=== PATIENT | female | born 1935 | race Caucasian/White ===

== ENCOUNTER 2017-09-25 19:04 | Emergency (ER) | payer MEDICARE ==
--- NOTE | 2017-09-25 20:11 | ER Document Report ---
ED Medical Screen (RME) - General Chief Complaint: Productive Cough Stated Complaint: STOMACH PAIN Time Seen by Provider: 09/25/17 19:48 Notes: Patient recently diagnosed with pneumonia and prescribed Zithromax. Family states patient was doing better until about 3 days ago when patient once again began to have stomach pain and vomiting. She also began to cough and have confusion. Daughter states she called primary care physician today who referred patient to the emergency department. TRAVEL OUTSIDE OF THE [place] IN LAST 30 DAYS: No - Related Data Allergies/Adverse Reactions: Penicillins Allergy (Unverified 08/30/11 05:08) Home Medications: Current Home Medications Atenolol [Tenormin] 50 mg PO BID 09/25/17 [History] Atorvastatin Calcium [Lipitor 40 mg Tablet] 40 mg PO QHS 09/25/17 [History] Esomeprazole Mag Trihydrate [Nexium] 40 mg PO DAILY 09/25/17 [History] Fenofibrate 54 mg PO DAILY 09/25/17 [History] Glipizide [Glipizide ER] 5 mg PO DAILY 09/25/17 [History] Levocetirizine Dihydrochloride [Xyzal] 5 mg PO QHS 09/25/17 [History] Levothyroxine Sodium 100 mcg PO DAILY 09/25/17 [History] Nifedipine [Nifedipine ER] 30 mg PO DAILY 09/25/17 [History] Pioglitazone HCl [Actos 15 mg Tablet] 1 tab PO DAILY 09/25/17 [History] Sitagliptin Phosphate [Januvia] 100 mg PO DAILY 09/25/17 [History] Zoster Vaccine Live/Pf [Zostavax Vial] 19,400 unit SQ DAILY 09/25/17 [History] Past Medical History - Past Medical History Cardiac Medical History: Reports: Hx Hypercholesterolemia, Hx Hypertension Neurological Medical History: Denies: Hx Seizures Endocrine Medical History: Reports: Hx Diabetes Mellitus Type 2 Renal/ Medical History: Denies: Hx Peritoneal Dialysis Musculoskeltal Medical History: Reports Hx Arthritis Past Surgical History: Reports: Hx Cholecystectomy, Hx Orthopedic Surgery - left femur, hip surgery left knee, Hx Tubal Ligation - Immunizations Hx Diphtheria, Pertussis, Tetanus Vaccination: Yes History of Influenza Vaccine for 08/2017 - 01/2018 Season: No Physical Exam - Vital signs Vitals: Temp Pulse Resp BP Pulse Ox 97.6 F 71 16 119/61 99 09/25/17 19:30 09/25/17 19:30 09/25/17 19:30 09/25/17 19:30 09/25/17 19:30 Course - Vital Signs Vital signs: Temp Pulse Resp BP Pulse Ox 97.6 F 71 16 119/61 99 09/25/17 19:30 09/25/17 19:30 09/25/17 19:30 09/25/17 19:30 09/25/17 19:30
--- NOTE | 2017-09-25 20:35 | RADIOLOGY REPORT (SQ) ---
EXAM DESCRIPTION: CHEST PA/LAT COMPLETED DATE/TIME: 09/25/2017 8:25 pm REASON FOR STUDY: cough COMPARISON: 08/29/2011 EXAM PARAMETERS: NUMBER OF VIEWS: two views TECHNIQUE: Digital Frontal and Lateral radiographic views of the chest acquired. RADIATION DOSE: NA LIMITATIONS: none FINDINGS: LUNGS AND PLEURA: No opacities, masses or pneumothorax. No pleural effusion. MEDIASTINUM AND HILAR STRUCTURES: No masses or contour abnormalities. HEART AND VASCULAR STRUCTURES: Heart normal size. No evidence for failure. BONES: No acute findings. HARDWARE: None in the chest. OTHER: No other significant finding. IMPRESSION: NO SIGNIFICANT RADIOGRAPHIC FINDING IN THE CHEST. TECHNICAL DOCUMENTATION: JOB ID: [id number] [employer]- All Rights Reserved
[2017-09-25 20:56] LABS: ABSOLUTE BASOPHILS # (AUTO) 0.1 10^3/uL (0.0-0.2); ABSOLUTE EOSINOPHILS # (AUTO) 0.2 10^3/uL (0.0-0.6); ABSOLUTE LYMPHOCYTES (AUTO) 3.3 10^3/uL (0.5-4.7); ABSOLUTE MONOCYTES (AUTO) 0.8 10^3/uL (0.1-1.4); ABSOLUTE NEUT (AUTO) 7.6 10^3/uL (1.7-8.2); BASOPHILS % (AUTO) 0.7 % (0-2); EOSINOPHILS % (AUTO) 1.8 % (0-6); HEMATOCRIT 32.6 % (36.0-47.0); HEMOGLOBIN 10.3 g/dL (12.0-15.5); HGB HCT DIFFERENCE -1.7; LYMPHOCYTES % (AUTO) 27.5 % (13-45); MEAN CORPUSCULAR HEMOGLOBIN 22.4 pg (27.0-33.4); MEAN CORPUSCULAR HGB CONC 31.7 g/dL (32.0-36.0); MEAN CORPUSCULAR VOLUME 71 fl (80-97); MONOCYTES % (AUTO) 6.8 % (3-13); SEGMENTED NEUTROPHILS % (AUTO) 63.2 % (42-78)
--- NOTE | 2017-09-25 20:56 | ER Document Report ---
ED General - General Chief Complaint: Productive Cough Stated Complaint: STOMACH PAIN Time Seen by Provider: 09/25/17 19:48 Notes: Patient is an 82-year-old female presents emergency department complaining of altered mental status, one episode of emesis. Daughter at the bedside who is her primary caregiver states that they were seen here on September 12 and diagnosed with pneumonia discharged home with azithromycin. She completed her course of antibiotics and improved and is been symptom-free except for the past 2 days. Was referred to the emergency department by their primary care provider Dr. Suhail Abbasi for reevaluation. Denies any fevers, chills admits to mild nonproductive cough which is much improved from previous presentation. Denies epigastric discomfort at this time. Patient denies any abdominal pain, urinary frequency or burning TRAVEL OUTSIDE OF THE [place] IN LAST 30 DAYS: No - Related Data Allergies/Adverse Reactions: Penicillins Allergy (Verified 09/25/17 22:13) Home Medications: Current Home Medications Atenolol [Tenormin] 50 mg PO BID 09/25/17 [History] Atorvastatin Calcium [Lipitor 40 mg Tablet] 40 mg PO QHS 09/25/17 [History] Esomeprazole Mag Trihydrate [Nexium] 40 mg PO DAILY 09/25/17 [History] Fenofibrate 54 mg PO DAILY 09/25/17 [History] Glipizide [Glipizide ER] 5 mg PO DAILY 09/25/17 [History] Levocetirizine Dihydrochloride [Xyzal] 5 mg PO QHS 09/25/17 [History] Levothyroxine Sodium 100 mcg PO DAILY 09/25/17 [History] Nifedipine [Nifedipine ER] 30 mg PO DAILY 09/25/17 [History] Pioglitazone HCl [Actos 15 mg Tablet] 1 tab PO DAILY 09/25/17 [History] Sitagliptin Phosphate [Januvia] 100 mg PO DAILY 09/25/17 [History] Zoster Vaccine Live/Pf [Zostavax Vial] 19,400 unit SQ DAILY 09/25/17 [History] Past Medical History - Social History Smoking Status: Former Smoker Family History: Reviewed & Not Pertinent Patient has suicidal ideation: No Patient has homicidal ideation: No - Past Medical History Cardiac Medical History: Reports: Hx Hypercholesterolemia, Hx Hypertension Neurological Medical History: Denies: Hx Seizures Endocrine Medical History: Reports: Hx Diabetes Mellitus Type 2 Renal/ Medical History: Denies: Hx Peritoneal Dialysis Musculoskeltal Medical History: Reports Hx Arthritis Past Surgical History: Reports: Hx Cholecystectomy, Hx Orthopedic Surgery - left femur, hip surgery left knee, Hx Tubal Ligation - Immunizations Hx Diphtheria, Pertussis, Tetanus Vaccination: Yes Hx Pneumococcal Vaccination: 11/13/05 Review of Systems - Review of Systems Constitutional: No symptoms reported Cardiovascular: No symptoms reported Respiratory: No symptoms reported Gastrointestinal: See HPI Genitourinary: Burning Physical Exam - Vital signs Vitals: Temp Pulse Resp BP Pulse Ox 97.6 F 71 16 119/61 99 09/25/17 19:30 09/25/17 19:30 09/25/17 19:30 09/25/17 19:30 09/25/17 19:30 - Notes Notes: PHYSICAL EXAM GENERAL: Alert, interacts well. HEAD: Normocephalic, atraumatic. EYES: Pupils equal, round, and reactive to light. Extraocular movements intact. ENT: Oral mucosa moist, tongue midline. NECK: Full range of motion. Supple. Trachea midline. LUNGS: Clear to auscultation bilaterally, no wheezes, rales, or rhonchi. No respiratory distress. HEART: Regular rate and rhythm. No murmurs, gallops, or rubs. ABDOMEN: Soft, nondistended, nontender. No guarding, rebound, or rigidity.. Bowel sounds present in all 4 quadrants. EXTREMITIES: Moves all 4 extremities spontaneously. No edema, radial and dorsalis pedis pulses 2/4 bilaterally. No cyanosis. NEUROLOGICAL: Alert and oriented to person, time but not to place or events. Normal speech. PSYCH: Normal affect, normal mood. SKIN: Warm, dry, normal turgor. No rashes or lesions noted. Course - Re-evaluation Re-evalutation: 09/26/17 00:15 Patient is an 82-year-old female hemodynamic stable, no acute distress afebrile. CBC of 12 without evidence of left shift. No evidence of anemia. Chest x-ray without evidence of infiltrate. BUN and creatinine are stable markedly improved from previous presentation. Patient has improved after IV saline. Daughter at the bedside states that she is at her baseline and acting like herself now. Evidence of urinary tract infection on urinalysis. Will discharge home on antibiotics and to follow-up with primary care tomorrow. - Vital Signs Vital signs: Temp Pulse Resp BP Pulse Ox 97.5 F 68 18 162/83 H 99 09/26/17 01:06 09/26/17 01:06 09/26/17 01:06 09/26/17 01:06 09/26/17 01:06 - Laboratory Result Diagrams: 09/25/17 20:45 09/25/17 20:45 Laboratory results interpreted by me: 09/25/17 09/25/17 09/25/17 20:45 20:45 23:14 WBC 12.0 H Hgb 10.3 L Hct 32.6 L MCV 71 L MCH 22.4 L MCHC 31.7 L RDW 18.0 H Potassium 3.4 L Creatinine 1.35 H Est GFR ( Amer) 46 L Est GFR (Non-Af Amer) 38 L Glucose 196 H Direct Bilirubin 0.5 H Alkaline Phosphatase 178 H Albumin 3.4 L Urine Protein >=500 H Urine Glucose (UA) 50 H Ur Leukocyte Esterase MODERATE H - Diagnostic Test Radiology reviewed: Image reviewed, Reports reviewed Discharge - Discharge Clinical Impression: Dehydration UTI (urinary tract infection) Qualifiers: Urinary tract infection type: acute cystitis Hematuria presence: with hematuria Qualified Code(s): N30.01 - Acute cystitis with hematuria Condition: Stable Disposition: HOME, SELF-CARE Instructions: Dehydration ([facility]), Intravenous (IV) Fluids ([facility]), Nitrofurantoin ([facility]), Urinary Tract Infection ([facility]) Prescriptions: Nitrofurantoin/Nitrofuran Mac [Macrobid 100 mg Capsule] 1 tab PO BID #14 capsule Referrals: DONATO KIM MD [Primary Care Provider] - Follow up tomorrow
[2017-09-25 21:19] LABS: ALANINE AMINOTRANSFERASE 24 U/L (9-52); ALBUMIN 3.4 g/dL (3.5-5.0); ALKALINE PHOSPHATASE 178 U/L (38-126); ANION GAP 12 (5-19); ASPARTATE AMINO TRANSFERASE 20 U/L (14-36); BILIRUBIN,DIRECT 0.5 mg/dL (0.0-0.4); BILIRUBIN,TOTAL 0.9 mg/dL (0.2-1.3); BLOOD UREA NITROGEN 19 mg/dL (7-20); CALCIUM 8.6 mg/dL (8.4-10.2); CARBON DIOXIDE 26 mmol/L (22-30); CHLORIDE 100 mmol/L (98-107); CREATININE RESULT 1.35 mg/dL (0.52-1.25); GLUCOSE 196 mg/dL (75-110); POTASSIUM 3.4 mmol/L (3.6-5.0); TOTAL PROTEIN 6.3 g/dL (6.3-8.2)
[2017-09-25] MEDS ORDERED: NORMAL SALINE 1000 ML 1,000 ML IV PRN (21:37)
--- NOTE | 2017-09-25 21:49 | RADIOLOGY REPORT (SQ) ---
EXAM DESCRIPTION: ABDOMEN 2 VIEWS COMPLETED DATE/TIME: 09/25/2017 9:40 pm REASON FOR STUDY: abdominal pain and emesis COMPARISON: None. NUMBER OF VIEWS: Two views. TECHNIQUE: Supine and erect/decubitus radiographic images of the abdomen acquired. LIMITATIONS: None. FINDINGS: FREE AIR: None. No abnormal gas collections. LUNG BASES: Clear. BOWEL GAS PATTERN: Nonobstructive pattern. No dilated loops or air fluid levels. CALCIFICATIONS: No suspicious calcifications. SOFT TISSUES: No gross mass or suggestion of organomegaly. HARDWARE: Left hip hardware. BONES: No acute fracture. No worrisome bone lesions. OTHER: No other significant finding. IMPRESSION: NO RADIOGRAPHIC EVIDENCE FOR ACUTE ABDOMINAL DISEASE. TECHNICAL DOCUMENTATION: JOB ID: [id number] [employer]- All Rights Reserved
[2017-09-26 00:01] LABS: APPEARANCE,URINE CLOUDY; BILIRUBIN,URINE NEGATIVE (NEGATIVE); GLUCOSE, URINE 50 mg/dL (NEGATIVE); KETONES,URINE NEGATIVE (NEGATIVE); LEUKOCYTE ESTERASE,URINE MODERATE (NEGATIVE); NITRITE,URINE NEGATIVE (NEGATIVE); PROTEIN,URINE >=500 mg/dL (NEGATIVE); URINE SPECIFIC GRAVITY 1.018; UROBILINOGEN,URINE NEGATIVE mg/dL (<2.0)
[2017-09-26] MEDS ORDERED: NITROFURANTOIN MONOHYD/M-CRYST 100 MG CAPSULE PO ONE (00:10)
[2017-09-26 01:07] VITALS: BP 162/83
== END 2017-09-26 01:07 | disposition home or self-care (01) ==
LOC: ER 19:04
DX: E86.0 Dehydration (principal); N30.01 Acute cystitis with hematuria; R05 Cough; R41.82 Altered mental status, unspecified; E78.00 Pure hypercholesterolemia, unspecified; I10 Essential (primary) hypertension; E11.9 Type 2 diabetes mellitus without complications; Z88.0 Allergy status to penicillin; Z90.49 Acquired absence of other specified parts of digestive tract; Z98.51 Tubal ligation status
CPT/HCPCS: 99284; 96360; 36415; 87086; 83690; 85025; 87088; 80053; 81001; 74020; 71020; J7030; A9270; J8499

== ENCOUNTER 2017-12-13 09:15 | Outpatient (CLI) | payer MEDICARE ==
[~2017-12-13 09:15] MED LIST: ACETAMINOPHEN 325 MG TABLET PO PRN; DIPHENHYDRAMINE HCL 50 MG/ML VIAL IV PRN; IRON DEXTRAN COMPLEX 25 MG in SYRINGE, DISPOSABLE, 1 EACH IV PRN; IRON DEXTRAN COMPLEX 975 MG in NORMAL SALINE 1000 ML 1,000 ML IV PRN; NORMAL SALINE 250 ML IV PRN
[2017-12-13 09:30] VITALS: BP 138/61
== END 2017-12-13 15:05 | disposition home or self-care (01) ==
LOC: II 09:15 → 5TH 09:19 → II 15:05
PROVIDERS: ATTEND Internal Medicine Hematology & Oncology
PROC: 3E033GC Introduction of Other Therapeutic Substance into Peripheral Vein, Percutaneous Approach (ICD-10-PCS; principal; 2017-12-13)
DX: D50.9 Iron deficiency anemia, unspecified (principal)
CPT/HCPCS: 96365; 96366; 96374; 96375; A9270; J1200; J1750; J7030; J3490

== ENCOUNTER 2018-04-27 21:09 | Emergency (ER) | payer MEDICARE ==
--- NOTE | 2018-04-27 22:18 | ER Document Report ---
HPI - HPI Pain Level: 3 Notes: Patient is an 82-year-old female with a history of diabetes who presents to the ED complaining of a skin tear to her right posterior forearm prior to arrival. Patient states that she was holding her swallow when he tried to jump off and scratched the arm causing a skin tear. Patient states that she has very thin skin as it is. Daughter states that they brought her here because she is diabetic and may need antibiotics. Patient states that she does not have any pain aside from some soreness with a skin tear is located. She is not on any blood thinners. She has no other concerns or complaints at this time. Denies any headache, fever, URI, sore throat, chest pain, palpitations, syncope, cough , shortness of breath, wheeze, dyspnea, abdominal pain, nausea/vomiting/diarrhea , numbness/tingling, muscle paralysis/weakness, or rash. - ROS Systems Reviewed and Negative: Yes All other systems reviewed and negative - REPRODUCTIVE LMP: na Reproductive: DENIES: : Past Medical History - Social History Smoking Status: Never Smoker Family History: Reviewed & Not Pertinent - Past Medical History Cardiac Medical History: Reports: Hx Hypercholesterolemia, Hx Hypertension Pulmonary Medical History: Reports: Hx COPD Neurological Medical History: Denies: Hx Seizures Endocrine Medical History: Reports: Hx Diabetes Mellitus Type 2 Renal/ Medical History: Denies: Hx Peritoneal Dialysis Musculoskeltal Medical History: Reports Hx Arthritis Past Surgical History: Reports: Hx Cholecystectomy, Hx Orthopedic Surgery - left femur, hip surgery left knee, Hx Tubal Ligation - Immunizations Hx Diphtheria, Pertussis, Tetanus Vaccination: Yes Hx Pneumococcal Vaccination: 11/13/05 Vertical Provider Document - CONSTITUTIONAL Agree With Documented VS: Yes Notes: PHYSICAL EXAMINATION: GENERAL: Well-appearing, well-nourished and in no acute distress. LUNGS: Breath sounds clear to auscultation bilaterally and equal. No wheezes rales or rhonchi. HEART: Regular rate and rhythm without murmurs, rubs, gallops. Musculoskeletal: Rt UE: FROM to passive/active. Strength 5+/5. N/V intact distal. No bony tenderness. Extremities: No cyanosis, clubbing, or edema b/l. Peripheral pulses 2+. Capillary refill less than 3 seconds. NEUROLOGICAL: Normal speech, normal gait. Normal sensory, motor exams PSYCH: Normal mood, normal affect. SKIN: Rt posterior forearm: There is a V-shaped [id number] skin tear noted without laceration. Superficial tear. No purulence or abscess. - INFECTION CONTROL TRAVEL OUTSIDE OF THE [place] IN LAST 30 DAYS: No Course - Re-evaluation Re-evalutation: 04/27/18 22:15 Patient is an afebrile, well-hydrated, 82-year-old female who presents to the ED with a skin tear to her right posterior forearm. Vitals are acceptable. PE is otherwise unremarkable for any neurovascular compromise, obvious tendon/ ligament rupture, obvious fracture/dislocation, septic joint. No labs or imaging warranted at this time based on H&P. Wound was thoroughly irrigated and cleansed. Steri-Strips were used to appropriately approximate wound edges. Wound dressing was placed. Wound instructions reviewed. Tetanus is reported to be up-to-date. I will send her home with a prescription for Keflex as prophylaxis. Pt states she has had rocephin and believes keflex in the past w/ o difficulty. Conservative measures otherwise for symptoms. Recheck with your PCM in 2-3 days. Return to the ED with any worsening/concerning symptoms otherwise as reviewed discharge. Patient is in agreement. - Vital Signs Vital signs: Temp Pulse Resp BP Pulse Ox 97.6 F 96 17 126/71 H 96 04/27/18 21:37 04/27/18 21:37 04/27/18 21:37 04/27/18 21:37 04/27/18 21:37 Discharge - Discharge Clinical Impression: Skin tear of right upper extremity Condition: Stable Disposition: HOME, SELF-CARE Instructions: Antibiotic Ointment Protection ([facility]), Soap Cleansing ([facility]) Additional Instructions: Keep the skin clean Wash with soap and water Tylenol/ibuprofen if needed Triple antibiotic ointment daily Take medication as directed Monitor for any worsening symptoms Recheck with your PCM in 2-3 days Return to the ED with any worsening symptoms and/or development of fever, headache, chest pain, palpitations, syncope, shortness of breath, trouble breathing, abdominal pain, n/v/d, abscess, purulent discharge, red streaks, worsening swelling, or other worsening symptoms that are concerning to you. Prescriptions: Cephalexin Monohydrate [Keflex 500 mg Capsule] 500 mg PO BID #14 capsule Forms: Elevated Blood Pressure Referrals: DONATO KIM MD [Primary Care Provider] - 04/30/18
[2018-04-27 22:42] VITALS: BP 148/85
== END 2018-04-27 22:42 | disposition home or self-care (01) ==
LOC: ER 21:09
DX: S51.811A Laceration without foreign body of right forearm, initial encounter (principal); W45.8XXA Other foreign body or object entering through skin, initial encounter; E11.9 Type 2 diabetes mellitus without complications; I10 Essential (primary) hypertension; J44.9 Chronic obstructive pulmonary disease, unspecified
CPT/HCPCS: 99282

== ENCOUNTER 2018-11-05 10:16 | Inpatient (IN) | payer MEDICARE ==
[2018-11-05] MEDS ORDERED: NORMAL SALINE 1000 ML 1,000 ML IV ONE ×2 (11:21→15:16)
--- NOTE | 2018-11-05 11:23 | ER Document Report ---
ED Medical Screen (RME) - General Chief Complaint: Rectal Bleeding Stated Complaint: RECTAL BLEEDING Time Seen by Provider: 11/05/18 11:10 TRAVEL OUTSIDE OF THE [place] IN LAST 30 DAYS: No - Related Data Allergies/Adverse Reactions: Penicillins Allergy (Verified 11/05/18 10:17) Past Medical History - Past Medical History Cardiac Medical History: Reports: Hx Hypercholesterolemia, Hx Hypertension Pulmonary Medical History: Reports: Hx COPD Neurological Medical History: Denies: Hx Seizures Endocrine Medical History: Reports: Hx Diabetes Mellitus Type 2 Renal/ Medical History: Denies: Hx Peritoneal Dialysis Musculoskeltal Medical History: Reports Hx Arthritis Past Surgical History: Reports: Hx Cholecystectomy, Hx Orthopedic Surgery - left femur, hip surgery left knee, Hx Tubal Ligation - Immunizations Hx Diphtheria, Pertussis, Tetanus Vaccination: Yes History of Influenza Vaccine for 08/2017 - 01/2018 Season: No Physical Exam - Vital signs Vitals: Temp Pulse Resp BP Pulse Ox 97.7 F 105 H 24 H 118/73 98 11/05/18 10:26 11/05/18 10:26 11/05/18 10:26 11/05/18 10:26 11/05/18 10:26 Course - Re-evaluation Re-evalutation: 11/05/18 11:22 83-year-old female not on any blood thinning medications a presents for profuse rectal bleeding. Soaked blood all the way down to her ankles. States that she has been unable to get the bleeding to stop. Never anything like this in the past. We will initiate broad workup type and screen CMP CT abdomen and pelvis. I will plan for this patient undergo further investigation evaluation by secondary provider, the the appropriate diagnostics, disposition and workup will be deferred to that provider. I have performed a rapid screening examination and they will require further evaluation. - Vital Signs Vital signs: Temp Pulse Resp BP Pulse Ox 97.7 F 105 H 24 H 118/73 98 11/05/18 10:26 11/05/18 10:26 11/05/18 10:26 11/05/18 10:26 11/05/18 10:26 Doctor's Discharge - Discharge Referrals: DONATO KIM MD [Primary Care Provider] - Follow up as needed
[2018-11-05 12:23] LABS: ABSOLUTE BASOPHILS # (AUTO) 0.1 10^3/uL (0.0-0.2); ABSOLUTE EOSINOPHILS # (AUTO) 0.2 10^3/uL (0.0-0.6); ABSOLUTE LYMPHOCYTES (AUTO) 1.8 10^3/uL (0.5-4.7); ABSOLUTE MONOCYTES (AUTO) 0.5 10^3/uL (0.1-1.4); ABSOLUTE NEUT (AUTO) 5.3 10^3/uL (1.7-8.2); BASOPHILS % (AUTO) 0.9 % (0-2); EOSINOPHILS % (AUTO) 2.2 % (0-6); HEMATOCRIT 33.7 % (36.0-47.0); HEMOGLOBIN 11.1 g/dL (12.0-15.5); LYMPHOCYTES % (AUTO) 22.5 % (13-45); MEAN CORPUSCULAR HEMOGLOBIN 27.5 pg (27.0-33.4); MEAN CORPUSCULAR HGB CONC 33.1 g/dL (32.0-36.0); MEAN CORPUSCULAR VOLUME 83 fl (80-97); MONOCYTES % (AUTO) 6.6 % (3-13); PLATELET COUNT 368 10^3/uL (150-450); RED BLOOD COUNT 4.06 10^6/uL (3.72-5.28); RED CELL DISTRIBUTION WIDTH 15.6 % (11.5-14.0); SEGMENTED NEUTROPHILS % (AUTO) 67.8 % (42-78); TOTAL CELLS COUNTED % (AUTO) 100 %; WHITE BLOOD COUNT 7.8 10^3/uL (4.0-10.5)
[2018-11-05 12:38] LABS: INTERNATIONAL RATION (INR) 1.02; PARTIAL THROMBOPLASTIN TIME 26.9 SEC (23.5-35.8); PROTHROMBIN TIME 13.9 SEC (11.4-15.4)
[2018-11-05 12:41] LABS: ALANINE AMINOTRANSFERASE 14 U/L (9-52); ALBUMIN 3.5 g/dL (3.5-5.0); ALKALINE PHOSPHATASE 84 U/L (38-126); ANION GAP 7 (5-19); ASPARTATE AMINO TRANSFERASE 21 U/L (14-36); BILIRUBIN,DIRECT 0.7 mg/dL (0.0-0.4); BILIRUBIN,TOTAL 0.8 mg/dL (0.2-1.3); BLOOD UREA NITROGEN 42 mg/dL (7-20); CALCIUM 8.9 mg/dL (8.4-10.2); CARBON DIOXIDE 22 mmol/L (22-30); CHLORIDE 109 mmol/L (98-107); GLUCOSE 166 mg/dL (75-110); SODIUM 137.6 mmol/L (137-145); TOTAL PROTEIN 6.7 g/dL (6.3-8.2)
--- NOTE | 2018-11-05 12:46 | ER Document Report ---
ED General - General Mode of Arrival: Ambulatory Information source: Patient TRAVEL OUTSIDE OF THE [place] IN LAST 30 DAYS: No <BACILIO TRUONG - Last Filed: 11/05/18 12:56> <MARCELA DAVILA - Last Filed: 11/05/18 15:30> - General Chief Complaint: Rectal Bleeding Stated Complaint: RECTAL BLEEDING Time Seen by Provider: 11/05/18 11:10 Notes: Patient is an 83 year old female with hypertension, hyperlipidemia, COPD, Stage III renal failure, type 2 diabetes, osteoporosis, iron deficiency anemia and a history of hemorrhoids presents to the emergency department complaining of rectal bleeding onset last night. Family at bedside states the patient was covered in blood and there was copious amounts of blood on the mattress, the bedside commode, and on the patient's night gown further stating "it looked like a homicide". Patient states she notices the blood when she coughs and describes it as feeling like blood clots. Family also reports the patient complaining of abdominal pain onset today. Patient's PCP is Dr. Abbasi. Patient's oncologist is Dr. Winters. She states they are unable to pinpoint the etiology of her anemia. Patient is not on any blood thinners. Patient is currently prescribed Januvia, Lipitor and receives B12 shots. (BACILIO TRUONG) - Related Data Allergies/Adverse Reactions: Penicillins Allergy (Verified 11/05/18 10:17) Past Medical History - General Information source: Patient - Social History Smoking Status: Former Smoker Cigarette use (# per day): No Chew tobacco use (# tins/day): No Frequency of alcohol use: None Drug Abuse: None Family History: Reviewed & Not Pertinent Patient has suicidal ideation: No Patient has homicidal ideation: No - Past Medical History Cardiac Medical History: Reports: Hx Hypercholesterolemia, Hx Hypertension Pulmonary Medical History: Reports: Hx COPD Endocrine Medical History: Reports: Hx Diabetes Mellitus Type 2 Musculoskeletal Medical History: Reports Hx Arthritis, Reports Other - Osteoporosis Past Surgical History: Reports: Hx Appendectomy, Hx Cholecystectomy, Hx Orth opedic Surgery - left femur, hip surgery left knee, Hx Tubal Ligation - Immunizations Hx Diphtheria, Pertussis, Tetanus Vaccination: Yes Hx Pneumococcal Vaccination: 11/13/05 <BACILIO TRUONG - Last Filed: 11/05/18 12:56> Review of Systems - Review of Systems Constitutional: No symptoms reported EENT: No symptoms reported Cardiovascular: No symptoms reported Respiratory: No symptoms reported Gastrointestinal: See HPI, Abdominal pain, Rectal bleeding Genitourinary: No symptoms reported Female Genitourinary: No symptoms reported Musculoskeletal: No symptoms reported Skin: No symptoms reported Hematologic/Lymphatic: No symptoms reported Neurological/Psychological: No symptoms reported -: Yes All other systems reviewed and negative <BACILIO TRUONG - Last Filed: 11/05/18 12:56> Physical Exam <BACILIO TRUONG - Last Filed: 11/05/18 12:56> - Vital signs Vitals: Temp Pulse Resp BP Pulse Ox 97.7 F 105 H 24 H 118/73 98 11/05/18 10:26 11/05/18 10:26 11/05/18 10:26 11/05/18 10:26 11/05/18 10:26 - Notes Notes: GENERAL: Alert, interacts well. No acute distress. HEAD: Normocephalic, atraumatic. EYES: Pupils equal, round, and reactive to light. Extraocular movements intact. ENT: Oral mucosa moist, tongue midline. NECK: Full range of motion. Supple. Trachea midline. LUNGS: Clear to auscultation bilaterally, no wheezes, rales, or rhonchi. No respiratory distress. HEART: Regular rate and rhythm. No murmurs, gallops, or rubs. ABDOMEN: Soft, non-tender. Ventral hernia in upper abdomen. Non-distended. Bowel sounds present in all 4 quadrants. EXTREMITIES: Moves all 4 extremities spontaneously. NEUROLOGICAL: Alert and oriented x3. Normal speech. PSYCH: Normal affect, normal mood. SKIN: Warm, dry, normal turgor. No rashes or lesions noted. RECTAL: Maroon colored blood coming from inside the rectum. (DIONNEBACILIO DONALDSON) Course - Laboratory Result Diagrams: 11/05/18 11:58 11/05/18 11:58 <BACILIO TRUONG - Last Filed: 11/05/18 12:56> - Laboratory Result Diagrams: 11/05/18 11:58 11/05/18 11:58 - Diagnostic Test Radiology reviewed: Image reviewed, Reports reviewed - CT scan of abdomen pelvis shows diffuse diverticular disease withoou inflamatory changes. There is a midline epigastric ventral hernia with greater omentum in the hernia, transverse colon approximates the hernia but does not enter it. - Consults Dr. Begum Time consulted: 15:05 Consulted provider: will see as inpatient - Will be available for consultation and colonoscopy if necessary. Dr. Gruber Time consulted: 15:10 Consulted provider: will come to ER <MARCELA DAVILA - Last Filed: 11/05/18 15:30> - Vital Signs Vital signs: Temp Pulse Resp BP Pulse Ox 97.8 F 105 H 19 179/73 H 99 11/05/18 14:37 11/05/18 10:26 11/05/18 15:01 11/05/18 15:01 11/05/18 15:01 - Laboratory Laboratory results interpreted by me: 11/05/18 11/05/18 11:58 11:58 Hgb 11.1 L Hct 33.7 L RDW 15.6 H Chloride 109 H BUN 42 H Creatinine 1.93 H Est GFR ( Amer) 30 L Est GFR (Non-Af Amer) 25 L Glucose 166 H Direct Bilirubin 0.7 H Discharge <BACILIO TRUONG - Last Filed: 11/05/18 12:56> - Discharge Admitting Provider: Hospitalist Unit Admitted: Telemetry <MARCELA DAVILA - Last Filed: 11/05/18 15:30> - Discharge Clinical Impression: Lower GI bleed, Diverticulosis large intestine w/o perforation or abscess w/bleeding Condition: Stable Disposition: ADMITTED INPATIENT Referrals: DONATO KIM MD [Primary Care Provider] - Follow up as needed Scribe Attestation: 11/05/18 13:19 I personally performed the services described in the documentation, reviewed and edited the documentation which was dictated to the scribe in my presence, and it accurately records my words and actions. (MARCELA DAVILA) Scribe Documentation - Scribe Written by Nain:: Nain Gabriel, 11/05/2018 12:54 acting as scribe for :: Carlos <BACILIO TRUONG - Last Filed: 11/05/18 12:56>
--- NOTE | 2018-11-05 13:31 | RADIOLOGY REPORT (SQ) ---
EXAM DESCRIPTION: CT ABD/PELVIS NO ORAL OR IV COMPLETED DATE/TIME: 11/05/2018 1:13 pm REASON FOR STUDY: concern for perforated diverticula COMPARISON: None. TECHNIQUE: CT scan of the abdomen and pelvis performed without intravenous or oral contrast. Images reviewed with lung, soft tissue, and bone windows. Reconstructed coronal and sagittal MPR images revi ewed. All images stored on PACS. All CT scanners at this facility use dose modulation, iterative reconstruction, and/or weight based d osing when appropriate to reduce radiation dose to as low as reasonably achievable (ALARA). [facility]: Dose Right [facility]: CareDose [facility]: Dose Right [facility]: Teradose 4D [facility]: Smart [employer] RADIATION DOSE: CT Rad equipment meets quality standard of care and radiation dose reduction techniq ues were employed. CTDIvol: 8.7 mGy. DLP: 496 mGy-cm.mGy. LIMITATIONS: None. FINDINGS: LOWER CHEST: Bibasilar scarring. Calcified granuloma, right middle lobe. Visual lymph no de left major fissure. Marked coronary artery disease. No pericardial effusion. NON-CONTRASTED LIVER, SPLEEN, ADRENALS: Evaluation limited by lack of IV contrast. No identified sign ificant masses. The liver appears diminutive. No intrahepatic biliary dilatation. Mild, symmetric nodularity of the adrenal glands. PANCREAS: Diffusely atrophic. No masses. No peripancreatic inflammatory changes. GALLBLADDER: Surgically absent. RIGHT KIDNEY AND URETER: No suspicious masses. Assessment limited by lack of IV contrast. No signif icant calcifications. No hydronephrosis or hydroureter. LEFT KIDNEY AND URETER: No suspicious masses. Assessment limited by lack of IV contrast. No signifi cant calcifications. No hydronephrosis or hydroureter. AORTA AND RETROPERITONEUM: No aneurysm. No retroperitoneal masses or adenopathy. BOWEL AND PERITONEAL CAVITY: Diffuse diverticular disease. Many of the sigmoid diverticula demonstra te very thin olmos. No focal inflammatory changes to suggest perforation/extraluminal gas. The morris sverse colon it approximates the midline ventral hernia without prolapsing through the defect. APPENDIX: Surgically absent. PELVIS, BLADDER, AND ABDOMINAL WALL:Fat containing supraumbilical/ epigastric midline hernia containi ng greater omentum. The defect measures on the order of 2.2 x 2.4 cm BONES: Degenerative changes of the hips and spine. Partially imaged ORIF of the left femoral neck. No acute findings. OTHER: No other significant finding. IMPRESSION: Diffuse diverticular disease without focal inflammatory changes or definitively extralum inal gas. Midline epigastric hernia containing greater omentum. The transverse colon approximates t his defect without prolapsing through. COMMENT: Quality ID # [id number]: Final reports with documentation of one or more dose reduction techniques (e.g., Automated exposure control, adjustment of the mA and/or kV according to patient size, use of iterative reconstruction technique) TECHNICAL DOCUMENTATION: JOB ID: [id number] [employer]- All Rights Reserved Reading location - IP/workstation name: [email or web address]
[2018-11-05] MEDS ORDERED: GLUCAGON,HUMAN RECOMB 1 MG INJ IM PRN (16:09)
[2018-11-05] MEDS ORDERED: INSULIN LISPRO 100 UNIT/ML 3 ML VIAL SUBCUT PRN (16:09)
[2018-11-05] MEDS ORDERED: DEXTROSE 50%-WATER 25 GM/50 ML DISP.SYRIN IV PRN ×4 (16:09)
[2018-11-05] MEDS ORDERED: DEXTROSE 40% GEL 15 GM TUBE PO PRN ×2 (16:09)
[2018-11-05] MEDS ORDERED: GLUCAGON,HUMAN RECOMB 1 MG INJ SUBCUT PRN (16:09)
[2018-11-05] MEDS ORDERED: HYDRALAZINE HCL INJ/PF 20 MG/1 ML SDV IV PRN (16:10)
--- NOTE | 2018-11-05 16:14 | PDOC CONSULTATION ---
Consultation Consult Date: 11/05/18 Consult reason:: Gastrointestinal Bleeding History of Present Illness Admission Date/PCP: 11/05/18 15:28 DONATO KIM MD History of Present Illness: SUN REMY is a 83 year old female Past Medical History Cardiac Medical History: Reports: Hyperlipidema, Hypertension Pulmonary Medical History: Reports: Chronic Obstructive Pulmonary Disease (COPD) Neurological Medical History: Denies: Seizures Endocrine Medical History: Reports: Diabetes Mellitus Type 2 Musculoskeltal Medical History: Reports: Arthritis, Other - Osteoporosis Past Surgical History Past Surgical History: Reports: Appendectomy, Cholecystectomy, Orthopedic Surgery - left femur, hip surgery left knee, Tubal Ligation Social History Smoking Status: Former Smoker Family History Family History: Reviewed & Not Pertinent Parental Family History Reviewed: No Children Family History Reviewed: Unknown Sibling(s) Family History Reviewed.: Unknown Medication/Allergy Home Medications: Atenolol [Tenormin] 50 mg PO BID 09/25/17 Atorvastatin Calcium [Lipitor 40 mg Tablet] 40 mg PO QHS 09/25/17 Esomeprazole Mag Trihydrate [Nexium] 40 mg PO DAILY 09/25/17 Fenofibrate 54 mg PO DAILY 09/25/17 Glipizide [Glipizide ER] 5 mg PO DAILY 09/25/17 Levocetirizine Dihydrochloride [Xyzal] 5 mg PO QHS 09/25/17 Levothyroxine Sodium 100 mcg PO DAILY 09/25/17 Nifedipine [Nifedipine ER] 30 mg PO DAILY 09/25/17 Pioglitazone HCl [Actos 15 mg Tablet] 1 tab PO DAILY 09/25/17 Sitagliptin Phosphate [Januvia] 100 mg PO DAILY 09/25/17 Zoster Vaccine Live/Pf [Zostavax Vial] 19,400 unit SQ DAILY 09/25/17 Nitrofurantoin/Nitrofuran Mac [Macrobid 100 mg Capsule] 1 tab PO BID #14 capsule 09/26/17 Cephalexin Monohydrate [Keflex 500 mg Capsule] 500 mg PO BID #14 capsule 04/27/18 Allergies/Adverse Reactions: Penicillins Allergy (Verified 11/05/18 10:17) Review of Systems Constitutional: PRESENT: as per HPI Eyes: PRESENT: as per HPI Respiratory: PRESENT: as per HPI Gastrointestinal: PRESENT: hematochezia Genitourinary: PRESENT: as per HPI Physical Exam Vital Signs: Temp Pulse Resp BP Pulse Ox 97.8 F 105 H 19 179/73 H 99 11/05/18 14:37 11/05/18 10:26 11/05/18 15:01 11/05/18 15:01 11/05/18 15:01 Intake & Output 11/04/18 11/05/18 11/06/18 06:59 06:59 06:59 Intake Total 1000 Balance 1000 Weight 72.6 kg General appearance: PRESENT: no acute distress, cooperative Head exam: PRESENT: normocephalic Eye exam: PRESENT: PERRLA Mouth exam: PRESENT: moist GI/Abdominal exam: PRESENT: other - The abdomen is soft obese nontender, there is a large epigastric ventral hernia at approximately 6 cm in diameter there is a old cholecystectomy scar in the right upper quadrant appendectomy scar in the right lower quadrant. Results Laboratory Results: 11/05/18 11:58 11/05/18 11:58 11/05/18 11/05/18 11/05/18 11:58 11:58 11:58 WBC 7.8 RBC 4.06 Hgb 11.1 L Hct 33.7 L MCV 83 MCH 27.5 MCHC 33.1 RDW 15.6 H Plt Count 368 Seg Neutrophils % 67.8 Lymphocytes % 22.5 Monocytes % 6.6 Eosinophils % 2.2 Basophils % 0.9 Absolute Neutrophils 5.3 Absolute Lymphocytes 1.8 Absolute Monocytes 0.5 Absolute Eosinophils 0.2 Absolute Basophils 0.1 Sodium 137.6 Potassium 5.0 Chloride 109 H Carbon Dioxide 22 Anion Gap 7 BUN 42 H Creatinine 1.93 H Est GFR ( Amer) 30 L Est GFR (Non-Af Amer) 25 L Glucose 166 H Calcium 8.9 Total Bilirubin 0.8 AST 21 ALT 14 Alkaline Phosphatase 84 Total Protein 6.7 Albumin 3.5 Lipase 108.0 Blood Type O POSITIVE Antibody Screen NEGATIVE Impressions: Abdomen/Pelvis CT 11/05/18 11:22 IMPRESSION: Diffuse diverticular disease without focal inflammatory changes or definitively extraluminal gas. Midline epigastric hernia containing greater omentum. The transverse colon approximates this defect without prolapsing through. Assessment & Plan - Time Time Spent: 30 to 50 Minutes - Plan Summary Plan Summary: This is a 83-year-old female who presented with 1 day onset of rectal bleeding daughters were present with the patient stated that she woke this morning with a large amount of blood and clots per rectum and therefore she is brought to the emergency room for evaluation she is undergone a CT scan here which that docum ents diffuse diverticulosis as well as the epigastric hernia and there is no other intra-abdominal cyst findings on CT scan repeat hemoglobin in the emergency room showed it to be about 11.1 which has which has not shown a significant change from previous CBCs that have been done on this patient. Current plans patient is to be admitted to the medicine service she will undergo a bleeding scan now. We will then admit the patient for a bowel prep. And plans on colonoscopy in the morning should she continue rebleeding it is hoped that we could identify a left source versus right source on the bleeding scan notes can be obtained today we will plan on colonoscopy prior to any surgery to see if we could document the source of the bleed whether it is in the left colon of the right colon if she continues to bleed and there is unknown and undocumented location she will require subtotal colectomy she will undergo bowel prep this afternoon for possible colonoscopy in the morning and surgery will follow
--- NOTE | 2018-11-05 16:23 | PDOC H&P ---
History of Present Illness Admission Date/PCP: 11/05/18 15:28 DONATO KIM MD Patient complains of: bloody stools History of Present Illness: SUN REMY is a 83 year old female with a PMH of HTN, CKD 3, NIDDM type 2, COPD not on home O2, history of DEMIAN and B12 deficiency and hypothyroidism who was brought in due to bloody stools. Family on bedside. Patient is not in distress. She has been doing well at home but had bloody stools last night, mostly maroon colored mixed with stool. There was also some dark red blood clots noted on the toilet bowl. She had another similar episode this morning. She denies abdominal pain, nausea or vomiting. She denies chest pain, dizziness or SOB. She appears comfortable and is making jokes. Family says she had an EGd and colonoscopy 2 yrs ago which were both normal. Upon encounter, patient is on bedpan having a another BM noted with significant maroon colored stools. Surgeon also on bedside and has recommended a bleeding scan. Plan for colonoscopy tomorrow. Past Medical History Cardiac Medical History: Reports: Hyperlipidema, Hypertension Pulmonary Medical History: Reports: Chronic Obstructive Pulmonary Disease (COPD) Neurological Medical History: Denies: Seizures Endocrine Medical History: Reports: Diabetes Mellitus Type 2 Musculoskeltal Medical History: Reports: Arthritis, Other - Osteoporosis Past Surgical History Past Surgical History: Reports: Appendectomy, Cholecystectomy, Orthopedic Surgery - left femur, hip surgery left knee, Tubal Ligation Social History Smoking Status: Former Smoker Family History Family History: Reviewed & Not Pertinent Parental Family History Reviewed: Yes - no premature CAD Children Family History Reviewed: No Sibling(s) Family History Reviewed.: No Medication/Allergy Home Medications: Atenolol [Tenormin] 50 mg PO BID 09/25/17 Atorvastatin Calcium [Lipitor 40 mg Tablet] 40 mg PO QHS 09/25/17 Esomeprazole Mag Trihydrate [Nexium] 40 mg PO DAILY 09/25/17 Fenofibrate 54 mg PO DAILY 09/25/17 Glipizide [Glipizide ER] 5 mg PO DAILY 09/25/17 Levocetirizine Dihydrochloride [Xyzal] 5 mg PO QHS 09/25/17 Levothyroxine Sodium 100 mcg PO DAILY 09/25/17 Nifedipine [Nifedipine ER] 30 mg PO DAILY 09/25/17 Pioglitazone HCl [Actos 15 mg Tablet] 1 tab PO DAILY 09/25/17 Sitagliptin Phosphate [Januvia] 100 mg PO DAILY 09/25/17 Zoster Vaccine Live/Pf [Zostavax Vial] 19,400 unit SQ DAILY 09/25/17 Nitrofurantoin/Nitrofuran Mac [Macrobid 100 mg Capsule] 1 tab PO BID #14 capsule 09/26/17 Cephalexin Monohydrate [Keflex 500 mg Capsule] 500 mg PO BID #14 capsule 04/27/18 Allergies/Adverse Reactions: Penicillins Allergy (Verified 11/05/18 10:17) Review of Systems All systems: reviewed and no additional remarkable complaints except as stated - as mentioned in HPI Physical Exam Vital Signs: Temp Pulse Resp BP Pulse Ox 97.8 F 105 H 19 179/73 H 99 11/05/18 14:37 11/05/18 10:26 11/05/18 15:01 11/05/18 15:01 11/05/18 15:01 Intake & Output 11/04/18 11/05/18 11/06/18 06:59 06:59 06:59 Intake Total 1000 Balance 1000 Weight 160 lb 0.889 oz General appearance: PRESENT: no acute distress, well-developed, well-nourished Head exam: PRESENT: atraumatic, normocephalic Eye exam: PRESENT: conjunctiva pink, EOMI, PERRLA. ABSENT: scleral icterus Ear exam: PRESENT: normal external ear exam Mouth exam: PRESENT: moist, tongue midline Neck exam: ABSENT: carotid bruit, JVD, lymphadenopathy, thyromegaly Respiratory exam: PRESENT: clear to auscultation mychal. ABSENT: rales, rhonchi, wheezes Cardiovascular exam: PRESENT: RRR. ABSENT: diastolic murmur, rubs, systolic murmur GI/Abdominal exam: PRESENT: normal bowel sounds, soft, other - noteof ventral hernia, note of cholecystectomy scar. ABSENT: distended, guarding, mass, organolmegaly, rebound, tenderness Rectal exam: PRESENT: deferred Neurological exam: PRESENT: alert, awake, oriented to person, oriented to place, oriented to time, oriented to situation, CN II-XII grossly intact. ABSENT: motor sensory deficit Results Laboratory Results: 11/05/18 11:58 11/05/18 11:58 11/05/18 11/05/18 11/05/18 11:58 11:58 11:58 WBC 7.8 RBC 4.06 Hgb 11.1 L Hct 33.7 L MCV 83 MCH 27.5 MCHC 33.1 RDW 15.6 H Plt Count 368 Seg Neutrophils % 67.8 Lymphocytes % 22.5 Monocytes % 6.6 Eosinophils % 2.2 Basophils % 0.9 Absolute Neutrophils 5.3 Absolute Lymphocytes 1.8 Absolute Monocytes 0.5 Absolute Eosinophils 0.2 Absolute Basophils 0.1 Sodium 137.6 Potassium 5.0 Chloride 109 H Carbon Dioxide 22 Anion Gap 7 BUN 42 H Creatinine 1.93 H Est GFR ( Amer) 30 L Est GFR (Non-Af Amer) 25 L Glucose 166 H Calcium 8.9 Total Bilirubin 0.8 AST 21 ALT 14 Alkaline Phosphatase 84 Total Protein 6.7 Albumin 3.5 Lipase 108.0 Blood Type O POSITIVE Antibody Screen NEGATIVE Impressions: Abdomen/Pelvis CT 11/05/18 11:22 IMPRESSION: Diffuse diverticular disease without focal inflammatory changes or definitively extraluminal gas. Midline epigastric hernia containing greater omentum. The transverse colon approximates this defect without prolapsing through. Assessment & Plan - Diagnosis (1) Lower GI bleed Is this a current diagnosis for this admission?: Yes Plan: Likely diverticular in origin. CT does show multiple diverticolosis. Surgeon on bedside as well. Discussed plan for colonoscopy tomorrow with family and bleeding scan. Hb 11.1. Last Hb in 2017 on record was 10. Will continue to monitor H&H q6h. Transfuse as necessary. IV fluids. (2) Acute kidney injury Is this a current diagnosis for this admission?: Yes Plan: PARUL on top of CKD. Likely prerenal. She has been given a liter of bolus in the ER. Continue IV fluids. Recheck BMP tomorrow. (3) HTN (hypertension) Is this a current diagnosis for this admission?: Yes Plan: Blood pressure running in the 170-180 systolic. Currnetly NPO. IV hydralazine prn. (4) DM type 2 (diabetes mellitus, type 2) Is this a current diagnosis for this admission?: Yes Plan: On Januvia at home. Sliding scale for now. Accuchecks q6h. - Time Time Spent: 30 to 50 Minutes
[2018-11-05] MEDS: NORMAL SALINE 1000 ML 1,000 ML IV PRN (16:48)
[2018-11-05] MEDS ORDERED: PEG 3350/NA SULF,BICARB,CL/KCL 4000 ML PO ONE (17:30)
[2018-11-05] MEDS ORDERED: MAGNESIUM CITRATE 296 ML BOTTLE PO ONE ×2 (17:55→21:00)
--- NOTE | 2018-11-05 19:43 | RADIOLOGY REPORT (SQ) ---
EXAM DESCRIPTION: NM GI BLEED SCAN COMPLETED DATE/TIME: 11/05/2018 7:35 pm REASON FOR STUDY: BLOODY STOOLS COMPARISON: CT abdomen 11/05/2018 RADIONUCLIDE AND DOSE: 23.6 millicuries Technetium-labeled red blood cells. The route of agent administration: Intravenous. TECHNIQUE: Serial arterial-phase images acquired for 80 seconds immediately following injection of r adionuclide. Additional 60 images acquired at 60 seconds per image. LIMITATIONS: None. FINDINGS: Flow images without focal areas of abnormal radionuclide location. Serial images show no abnormal accumulation of radionuclide. IMPRESSION: NORMAL RADIONUCLIDE GASTROINTESTINAL BLEEDING STUDY. TECHNICAL DOCUMENTATION: JOB ID: [id number] [employer]- All Rights Reserved Reading location - IP/workstation name: [email or web address]
[2018-11-05 20:47] LABS: HEMOGLOBIN 9.2 g/dL (12.0-15.5); MEAN CORPUSCULAR HEMOGLOBIN 27.2 pg (27.0-33.4); MEAN CORPUSCULAR HGB CONC 32.9 g/dL (32.0-36.0); MEAN CORPUSCULAR VOLUME 83 fl (80-97); PLATELET COUNT 306 10^3/uL (150-450); RED BLOOD COUNT 3.39 10^6/uL (3.72-5.28); RED CELL DISTRIBUTION WIDTH 15.4 % (11.5-14.0); WHITE BLOOD COUNT 9.8 10^3/uL (4.0-10.5)
[2018-11-05] MEDS ORDERED: ONDANSETRON HCL INJ/PF 4 MG/2 ML SDV IV PRN (23:42)
[2018-11-06 02:55] LABS: ANION GAP 6 (5-19); BLOOD UREA NITROGEN 35 mg/dL (7-20); CALCIUM 8.4 mg/dL (8.4-10.2); CARBON DIOXIDE 19 mmol/L (22-30); CHLORIDE 115 mmol/L (98-107); GLUCOSE 127 mg/dL (75-110); HEMATOCRIT 26.4 % (36.0-47.0); HEMOGLOBIN 8.9 g/dL (12.0-15.5); MEAN CORPUSCULAR HEMOGLOBIN 27.7 pg (27.0-33.4); MEAN CORPUSCULAR HGB CONC 33.6 g/dL (32.0-36.0); MEAN CORPUSCULAR VOLUME 82 fl (80-97); PLATELET COUNT 264 10^3/uL (150-450); RED CELL DISTRIBUTION WIDTH 15.2 % (11.5-14.0); SODIUM 140.3 mmol/L (137-145); WHITE BLOOD COUNT 7.4 10^3/uL (4.0-10.5)
[2018-11-06] MEDS: NORMAL SALINE 1000 ML 1,000 ML IV PRN (03:01)
--- NOTE | 2018-11-06 08:02 | PDOC PROGRESS REPORT ---
Subjective Progress Note for:: 11/06/18 Reason For Visit: GI BLEED Physical Exam Vital Signs: Temp Pulse Resp BP Pulse Ox 97.5 F 86 18 153/89 H 97 11/06/18 07:28 11/06/18 07:28 11/06/18 07:28 11/06/18 07:28 11/06/18 07:28 Intake & Output 11/05/18 11/06/18 11/07/18 06:59 06:59 06:59 Intake Total 3000 Output Total 200 Balance 2800 Weight 72.6 kg GI/Abdominal exam: PRESENT: soft Results Laboratory Results: 11/06/18 02:30 11/06/18 02:30 11/05/18 11/05/18 11/05/18 11:58 11:58 11:58 WBC 7.8 RBC 4.06 Hgb 11.1 L Hct 33.7 L MCV 83 MCH 27.5 MCHC 33.1 RDW 15.6 H Plt Count 368 Seg Neutrophils % 67.8 Lymphocytes % 22.5 Monocytes % 6.6 Eosinophils % 2.2 Basophils % 0.9 Absolute Neutrophils 5.3 Absolute Lymphocytes 1.8 Absolute Monocytes 0.5 Absolute Eosinophils 0.2 Absolute Basophils 0.1 Sodium 137.6 Potassium 5.0 Chloride 109 H Carbon Dioxide 22 Anion Gap 7 BUN 42 H Creatinine 1.93 H Est GFR ( Amer) 30 L Est GFR (Non-Af Amer) 25 L Glucose 166 H Calcium 8.9 Total Bilirubin 0.8 AST 21 ALT 14 Alkaline Phosphatase 84 Total Protein 6.7 Albumin 3.5 Lipase 108.0 Blood Type O POSITIVE Antibody Screen NEGATIVE 11/05/18 11/06/18 11/06/18 20:35 02:30 02:30 WBC 9.8 7.4 RBC 3.39 L 3.20 L Hgb 9.2 L 8.9 L Hct 28.0 L 26.4 L MCV 83 82 MCH 27.2 27.7 MCHC 32.9 33.6 RDW 15.4 H 15.2 H Plt Count 306 264 Seg Neutrophils % Lymphocytes % Monocytes % Eosinophils % Basophils % Absolute Neutrophils Absolute Lymphocytes Absolute Monocytes Absolute Eosinophils Absolute Basophils Sodium 140.3 Potassium 4.0 D Chloride 115 H Carbon Dioxide 19 L Anion Gap 6 BUN 35 H Creatinine 1.50 H Est GFR ( Amer) 40 L Est GFR (Non-Af Amer) 33 L Glucose 127 H Calcium 8.4 Total Bilirubin AST ALT Alkaline Phosphatase Total Protein Albumin Lipase Blood Type Antibody Screen Impressions: Abdomen/Pelvis CT 11/05/18 11:22 IMPRESSION: Diffuse diverticular disease without focal inflammatory changes or definitively extraluminal gas. Midline epigastric hernia containing greater omentum. The transverse colon approximates this defect without prolapsing through. GI Bleed Scan Nuclear Medicine 11/05/18 16:03 IMPRESSION: NORMAL RADIONUCLIDE GASTROINTESTINAL BLEEDING STUDY. Assessment & Plan - Diagnosis (2) Lower GI bleed Is this a current diagnosis for this admission?: Yes - Plan Summary Plan Summary: pts hemoglobin has remained stable overnight hemoglobin this morning is 8.9 9.2 last pm reports only small bm's overnight with dark blood plan today is for a colonoscopy discussed risks and benifits with patient, including perforation, sepsis and mi, and possible related to procedure will plan to proceed.
[2018-11-06 08:36] LABS: HEMATOCRIT 29.6 % (36.0-47.0); HEMOGLOBIN 9.8 g/dL (12.0-15.5); MEAN CORPUSCULAR HEMOGLOBIN 27.5 pg (27.0-33.4); MEAN CORPUSCULAR HGB CONC 33.1 g/dL (32.0-36.0); MEAN CORPUSCULAR VOLUME 83 fl (80-97); PLATELET COUNT 321 10^3/uL (150-450); RED BLOOD COUNT 3.57 10^6/uL (3.72-5.28); RED CELL DISTRIBUTION WIDTH 15.6 % (11.5-14.0); WHITE BLOOD COUNT 6.2 10^3/uL (4.0-10.5)
--- NOTE | 2018-11-06 09:19 | PDOC PROGRESS REPORT ---
Subjective Progress Note for:: 11/06/18 Subjective:: 11/06/2018 83-year-old female with history of hypertension, CKD 3, non-insulin diabetes type 2. COPD, history of iron deficiency anemia B12 deficiency and hypothyroidism came to the emergency room with bloody stools. No acute events in the last 24 hours. Hemoglobin came up to 9.8. The surgeon saw the patient today and plan for colonoscopy around 10 AM today. Patient is alert and awake communicating very well. She has 1 small bowel movement with blood stained stool. CT scan was done which was negative. Reason For Visit: GI BLEED Physical Exam Vital Signs: Temp Pulse Resp BP Pulse Ox 97.5 F 86 18 153/89 H 97 11/06/18 07:28 11/06/18 07:28 11/06/18 07:28 11/06/18 07:28 11/06/18 07:28 Intake & Output 11/05/18 11/06/18 11/07/18 06:59 06:59 06:59 Intake Total 3000 Output Total 200 Balance 2800 Weight 72.6 kg General appearance: PRESENT: no acute distress Head exam: PRESENT: atraumatic Eye exam: PRESENT: PERRLA Mouth exam: PRESENT: moist Neck exam: ABSENT: carotid bruit, JVD, lymphadenopathy, thyromegaly Respiratory exam: PRESENT: clear to auscultation mychal. ABSENT: rales, rhonchi, wheezes Cardiovascular exam: PRESENT: RRR. ABSENT: diastolic murmur, rubs, systolic murmur GI/Abdominal exam: PRESENT: normal bowel sounds, soft. ABSENT: distended, guarding, mass, organolmegaly, rebound, tenderness Neurological exam: PRESENT: alert, awake, oriented to person, oriented to place, oriented to time, oriented to situation, CN II-XII grossly intact. ABSENT: motor sensory deficit Psychiatric exam: PRESENT: appropriate affect, normal mood. ABSENT: homicidal ideation, suicidal ideation Results Laboratory Results: 11/06/18 08:21 11/06/18 02:30 11/05/18 11/05/18 11/05/18 11:58 11:58 11:58 WBC 7.8 RBC 4.06 Hgb 11.1 L Hct 33.7 L MCV 83 MCH 27.5 MCHC 33.1 RDW 15.6 H Plt Count 368 Seg Neutrophils % 67.8 Lymphocytes % 22.5 Monocytes % 6.6 Eosinophils % 2.2 Basophils % 0.9 Absolute Neutrophils 5.3 Absolute Lymphocytes 1.8 Absolute Monocytes 0.5 Absolute Eosinophils 0.2 Absolute Basophils 0.1 Sodium 137.6 Potassium 5.0 Chloride 109 H Carbon Dioxide 22 Anion Gap 7 BUN 42 H Creatinine 1.93 H Est GFR ( Amer) 30 L Est GFR (Non-Af Amer) 25 L Glucose 166 H Calcium 8.9 Total Bilirubin 0.8 AST 21 ALT 14 Alkaline Phosphatase 84 Total Protein 6.7 Albumin 3.5 Lipase 108.0 Blood Type O POSITIVE Antibody Screen NEGATIVE 11/05/18 11/06/18 11/06/18 20:35 02:30 02:30 WBC 9.8 7.4 RBC 3.39 L 3.20 L Hgb 9.2 L 8.9 L Hct 28.0 L 26.4 L MCV 83 82 MCH 27.2 27.7 MCHC 32.9 33.6 RDW 15.4 H 15.2 H Plt Count 306 264 Seg Neutrophils % Lymphocytes % Monocytes % Eosinophils % Basophils % Absolute Neutrophils Absolute Lymphocytes Absolute Monocytes Absolute Eosinophils Absolute Basophils Sodium 140.3 Potassium 4.0 D Chloride 115 H Carbon Dioxide 19 L Anion Gap 6 BUN 35 H Creatinine 1.50 H Est GFR ( Amer) 40 L Est GFR (Non-Af Amer) 33 L Glucose 127 H Calcium 8.4 Total Bilirubin AST ALT Alkaline Phosphatase Total Protein Albumin Lipase Blood Type Antibody Screen 11/06/18 08:21 WBC 6.2 RBC 3.57 L Hgb 9.8 L Hct 29.6 L MCV 83 MCH 27.5 MCHC 33.1 RDW 15.6 H Plt Count 321 Seg Neutrophils % Lymphocytes % Monocytes % Eosinophils % Basophils % Absolute Neutrophils Absolute Lymphocytes Absolute Monocytes Absolute Eosinophils Absolute Basophils Sodium Potassium Chloride Carbon Dioxide Anion Gap BUN Creatinine Est GFR ( Amer) Est GFR (Non-Af Amer) Glucose Calcium Total Bilirubin AST ALT Alkaline Phosphatase Total Protein Albumin Lipase Blood Type Antibody Screen Impressions: Abdomen/Pelvis CT 11/05/18 11:22 IMPRESSION: Diffuse diverticular disease without focal inflammatory changes or definitively extraluminal gas. Midline epigastric hernia containing greater omentum. The transverse colon approximates this defect without prolapsing through. GI Bleed Scan Nuclear Medicine 11/05/18 16:03 IMPRESSION: NORMAL RADIONUCLIDE GASTROINTESTINAL BLEEDING STUDY. Assessment & Plan - Diagnosis (1) Lower GI bleed Is this a current diagnosis for this admission?: Yes Plan: 11/06/2018-lower GI bleed most likely secondary to diverticular origin. Bleeding scan was negative. CT scan shows multiple diverticulosis. Surgeon is planning to do colonoscopy around 10 AM today. Latest hemoglobin is 9.8. (2) Acute kidney injury Is this a current diagnosis for this admission?: Yes Plan: 11/06/2018 patient's baseline creatinine is around 1.3. On admission it was 1.93 improved to 1.5 with IV fluids. (3) HTN (hypertension) Is this a current diagnosis for this admission?: Yes Plan: 11/06/2018-patient is currently n.p.o. blood pressure is 153/89. She is on hydralazine IV as needed. She is also getting IV fluids. (4) DM type 2 (diabetes mellitus, type 2) Is this a current diagnosis for this admission?: Yes Plan: 11/06/2018-patient's latest blood sugar is 117. Patient is n.p.o. She was on Januvia at home. Presently she is on insulin sliding scale. Accu-Cheks every 6 hours. - Time Time Spent with patient: Less than 15 minutes Smoking Cessation Education: 3 to 10 minutes Medications reviewed and adjusted accordingly: Yes Anticipated discharge: Home
[2018-11-06] MEDS ORDERED: NORMAL SALINE 1000 ML 1,000 ML IV PRN (09:20)
[2018-11-06] MEDS ORDERED: ONDANSETRON HCL INJ/PF 4 MG/2 ML SDV ONE (09:22)
[2018-11-06] MEDS ORDERED: DIPHENHYDRAMINE HCL 50 MG/ML VIAL ONE (09:22)
[2018-11-06] MEDS ORDERED: FENTANYL CITRATE INJ/PF 100 MCG/2 ML AMPUL ONE (09:23)
[2018-11-06] MEDS ORDERED: GLUCAGON,HUMAN RECOMB 1 MG INJ ONE (09:23)
[2018-11-06] MEDS ORDERED: FLUMAZENIL INJ 0.5 MG/5 ML VIAL ONE (09:23)
[2018-11-06] MEDS ORDERED: NALOXONE HCL INJ/PF 0.4 MG/1 ML SDV ONE (09:23)
[2018-11-06] MEDS ORDERED: EPINEPHRINE INJ 1 MG/10 ML DISP.SYRIN ONE (09:23)
[2018-11-06] MEDS ORDERED: MIDAZOLAM 2 MG/2 ML INJ ONE (09:23)
--- NOTE | 2018-11-06 11:35 | Operative Report ---
Operative Report DATE OF SURGERY: 11/06/18 - Colonoscopy PREOPERATIVE DIAGNOSIS: lower gi bleeding POSTOPERATIVE DIAGNOSIS: Diverticulosis OPERATION: Diagnostic colonoscopy SURGEON: ARVIND HI ANESTHESIA: Moderate Sedation TISSUE REMOVED OR ALTERED: none COMPLICATIONS: none ESTIMATED BLOOD LOSS: minimal INTRAOPERATIVE FINDINGS: Procedure. Patient was brought to the endoscopy suite and placed on the transport gurney in the left lateral decubitus position. She was given 2 mg of IV Versed for sedation. The Olympus colonoscope was passed easily into the rectum and up to approximately 55-60 cm to reach her splenic flexure. The bowel preparation was good. There was no evidence of any ongoing bleeding however there were multiple reticulitis with evidence of old blood and clot within the lumen of these diverticuli. Reach the point backs approximately 40-50 cm were above that appeared to be no evidence of any bleeding but I could not really negotiate the turn between the splenic flexure and the transverse colon however above the about 40 cm there was no further evidence of any previous bleeding. This most the scope was then removed slowly and the exam insert 360 degrees circumferentially around the splenic flexure and descending left colon and and sigmoid and rectum other than the diverticular versus there was no evidence of any other masses to explain the bleed. This completes the procedure.
[2018-11-06] MEDS: NIFEDIPINE 30 MG TAB.ER.24 PO SCH (12:16)
--- NOTE | 2018-11-06 15:39 | EKG REPORT ---
SEVERITY:- NORMAL ECG - SINUS RHYTHM : Confirmed by: Amaya Gilbert 06-Nov-2018 15:37:26
[2018-11-06] MEDS ORDERED: FENOFIBRATE NANOCRYSTALLIZED 48 MG TABLET PO SCH (22:00)
[2018-11-06] MEDS ORDERED: CETIRIZINE 5 MG TABLET PO SCH (22:00)
[2018-11-06] MEDS ORDERED: (PENDING PHARMACY ID) (Fenofibrate [Fenofibrate] 54 MG) PO SCH (22:00)
[2018-11-07 04:42] LABS: ABSOLUTE BASOPHILS # (AUTO) 0.1 10^3/uL (0.0-0.2); ABSOLUTE EOSINOPHILS # (AUTO) 0.3 10^3/uL (0.0-0.6); ABSOLUTE LYMPHOCYTES (AUTO) 1.9 10^3/uL (0.5-4.7); ABSOLUTE MONOCYTES (AUTO) 0.5 10^3/uL (0.1-1.4); ABSOLUTE NEUT (AUTO) 2.9 10^3/uL (1.7-8.2); BASOPHILS % (AUTO) 0.9 % (0-2); HEMATOCRIT 24.4 % (36.0-47.0); HEMOGLOBIN 8.2 g/dL (12.0-15.5); LYMPHOCYTES % (AUTO) 33.7 % (13-45); MEAN CORPUSCULAR HEMOGLOBIN 27.9 pg (27.0-33.4); MEAN CORPUSCULAR HGB CONC 33.8 g/dL (32.0-36.0); MEAN CORPUSCULAR VOLUME 83 fl (80-97); MONOCYTES % (AUTO) 9.4 % (3-13); PLATELET COUNT 270 10^3/uL (150-450); RED BLOOD COUNT 2.95 10^6/uL (3.72-5.28); RED CELL DISTRIBUTION WIDTH 15.7 % (11.5-14.0); TOTAL CELLS COUNTED % (AUTO) 100 %; WHITE BLOOD COUNT 5.6 10^3/uL (4.0-10.5)
[2018-11-07 05:04] LABS: POTASSIUM 4.2 mmol/L (3.6-5.0)
[2018-11-07 05:10] LABS: SODIUM 140.6 mmol/L (137-145)
[2018-11-07] MEDS ORDERED: LEVOTHYROXINE SODIUM 0.1 MG TABLET PO SCH (06:00)
[2018-11-07] MEDS ORDERED: NORMAL SALINE 250 ML IV PRN ×2 (08:22)
--- NOTE | 2018-11-07 08:37 | PDOC PROGRESS REPORT ---
Subjective Progress Note for:: 11/07/18 Subjective:: 11/06/2018 83-year-old female with history of hypertension, CKD 3, non-insulin diabetes type 2. COPD, history of iron deficiency anemia B12 deficiency and hypothyroidism came to the emergency room with bloody stools. No acute events in the last 24 hours. Hemoglobin came up to 9.8. The surgeon saw the patient today and plan for colonoscopy around 10 AM today. Patient is alert and awake communicating very well. She has 1 small bowel movement with blood stained stool. CT scan was done which was negative. 11/07/2018 no acute events in the last 24 hours patient had a colonoscopy yesterday and there is no evidence of active bleeding as per the report. Carly ent does have a diverticula. The bleeding may be secondary to diverticular disease. pt Having the regular movement bowel movements without any blood in the stool. Denies any complaints today. She states she is feeling well. Reason For Visit: GI BLEED Physical Exam Vital Signs: Temp Pulse Resp BP Pulse Ox 97.7 F 73 17 152/70 H 97 11/07/18 07:46 11/07/18 07:46 11/07/18 07:46 11/07/18 07:46 11/07/18 07:46 Intake & Output 11/06/18 11/07/18 11/08/18 06:59 06:59 06:59 Intake Total 3000 1842 Output Total 200 250 Balance 2800 1592 Weight 72.6 kg 70.1 kg General appearance: PRESENT: no acute distress Head exam: PRESENT: atraumatic Eye exam: PRESENT: PERRLA Mouth exam: PRESENT: moist Neck exam: ABSENT: carotid bruit, JVD, lymphadenopathy, thyromegaly Respiratory exam: PRESENT: clear to auscultation mychal. ABSENT: rales, rhonchi, wheezes Cardiovascular exam: PRESENT: RRR. ABSENT: diastolic murmur, rubs, systolic murmur GI/Abdominal exam: PRESENT: normal bowel sounds, soft. ABSENT: distended, guarding, mass, organolmegaly, rebound, tenderness Neurological exam: PRESENT: alert, awake, oriented to person, oriented to place, oriented to time, oriented to situation, CN II-XII grossly intact. ABSENT: motor sensory deficit Skin exam: PRESENT: dry, intact, warm. ABSENT: cyanosis, rash Results Laboratory Results: 11/07/18 04:16 11/07/18 04:16 11/06/18 11/07/18 11/07/18 08:21 04:16 04:16 WBC 6.2 5.6 RBC 3.57 L 2.95 L Hgb 9.8 L 8.2 L Hct 29.6 L 24.4 L MCV 83 83 MCH 27.5 27.9 MCHC 33.1 33.8 RDW 15.6 H 15.7 H Plt Count 321 270 Seg Neutrophils % 51.0 Lymphocytes % 33.7 Monocytes % 9.4 Eosinophils % 5.0 Basophils % 0.9 Absolute Neutrophils 2.9 Absolute Lymphocytes 1.9 Absolute Monocytes 0.5 Absolute Eosinophils 0.3 Absolute Basophils 0.1 Sodium 140.6 Potassium 4.2 Chloride 113 H Carbon Dioxide 22 Anion Gap 6 Impressions: Abdomen/Pelvis CT 11/05/18 11:22 IMPRESSION: Diffuse diverticular disease without focal inflammatory changes or definitively extraluminal gas. Midline epigastric hernia containing greater omentum. The transverse colon approximates this defect without prolapsing through. GI Bleed Scan Nuclear Medicine 11/05/18 16:03 IMPRESSION: NORMAL RADIONUCLIDE GASTROINTESTINAL BLEEDING STUDY. Assessment & Plan - Diagnosis (1) Lower GI bleed Is this a current diagnosis for this admission?: Yes Plan: 11/06/2018-lower GI bleed most likely secondary to diverticular origin. Bleeding scan was negative. CT scan shows multiple diverticulosis. Surgeon is planning to do colonoscopy around 10 AM today. Latest hemoglobin is 9.8. 11/07/2018-patient's latest hemoglobin is 8.2. It dropped from 9.8 yesterday. There is a significant drop of 1.6 hemoglobin. Patient denies any blood in the stool. asymptomatic. I am going to order for a stat CBC, if the hemoglobin is still low we will go ahead and transfuse 1 unit of PRBC I discussed the plan with the patient she gave the consent for blood transfusion. (2) Acute kidney injury Is this a current diagnosis for this admission?: Yes Plan: 11/06/2018 patient's baseline creatinine is around 1.3. On admission it was 1.93 improved to 1.5 with IV fluids. 11/07/2018-patient's baseline creatinine is around 1.3 improved to 1.5 yesterday. We waiting for the labs for today. PARUL is resolving. And is to continue with current management. (3) HTN (hypertension) Is this a current diagnosis for this admission?: Yes Plan: 11/06/2018-patient is currently n.p.o. blood pressure is 153/89. She is on hydralazine IV as needed. She is also getting IV fluids. 11/07/2018-patient's blood pressure today is 132/62. Pulse rate of 70. We started back on her home medication nifedipine 30 mg p.o. daily. Plan is to continue the current management.. (4) DM type 2 (diabetes mellitus, type 2) Is this a current diagnosis for this admission?: Yes Plan: 11/06/2018-patient's latest blood sugar is 117. Patient is n.p.o. She was on Januvia at home. Presently she is on insulin sliding scale. Accu-Cheks every 6 hours. 11/06/2018 latest blood sugar is 159 patient is on insulin sliding scale. She is on Januvia at home. I am going to check her hemoglobin A1c today. We will continue the present management. - Time Time Spent with patient: 15-24 minutes Medications reviewed and adjusted accordingly: Yes Anticipated discharge: Home
[2018-11-07 09:15] LABS: ABSOLUTE BASOPHILS # (AUTO) 0.1 10^3/uL (0.0-0.2); ABSOLUTE EOSINOPHILS # (AUTO) 0.3 10^3/uL (0.0-0.6); ABSOLUTE LYMPHOCYTES (AUTO) 1.8 10^3/uL (0.5-4.7); ABSOLUTE MONOCYTES (AUTO) 0.5 10^3/uL (0.1-1.4); ABSOLUTE NEUT (AUTO) 2.9 10^3/uL (1.7-8.2); BASOPHILS % (AUTO) 1.4 % (0-2); EOSINOPHILS % (AUTO) 4.7 % (0-6); HEMATOCRIT 26.7 % (36.0-47.0); HEMOGLOBIN 8.9 g/dL (12.0-15.5); LYMPHOCYTES % (AUTO) 33.1 % (13-45); MEAN CORPUSCULAR HEMOGLOBIN 27.6 pg (27.0-33.4); MEAN CORPUSCULAR HGB CONC 33.2 g/dL (32.0-36.0); MEAN CORPUSCULAR VOLUME 83 fl (80-97); MONOCYTES % (AUTO) 8.5 % (3-13); PLATELET COUNT 306 10^3/uL (150-450); RED BLOOD COUNT 3.21 10^6/uL (3.72-5.28); RED CELL DISTRIBUTION WIDTH 15.5 % (11.5-14.0); SEGMENTED NEUTROPHILS % (AUTO) 52.3 % (42-78); TOTAL CELLS COUNTED % (AUTO) 100 %; WHITE BLOOD COUNT 5.5 10^3/uL (4.0-10.5)
[2018-11-07] MEDS: NIFEDIPINE 30 MG TAB.ER.24 PO SCH (09:21)
[2018-11-07 10:47] VITALS: BP 154/73
--- NOTE | 2018-11-07 11:05 | PDOC PROGRESS REPORT ---
Subjective Progress Note for:: 11/07/18 Subjective:: This is an 83-year-old female status post colonoscopy for rectal bleeding. No bleeding source could be identified at the time of colonoscopy. The patient has had no further rectal bleeding. She denies melena, hematochezia, hematemesis, abdominal pain, orthostasis, dizziness, fatigue, malaise, chest pain, shortness of breath, headache, blurry vision. Reason For Visit: GI BLEED Physical Exam Vital Signs: Temp Pulse Resp BP Pulse Ox 97.7 F 73 17 154/73 H 97 11/07/18 10:46 11/07/18 10:46 11/07/18 10:46 11/07/18 10:46 11/07/18 10:46 Intake & Output 11/06/18 11/07/18 11/08/18 06:59 06:59 06:59 Intake Total 3000 1842 Output Total 200 250 Balance 2800 1592 Weight 72.6 kg 70.1 kg General appearance: PRESENT: no acute distress Head exam: PRESENT: atraumatic, normocephalic Eye exam: PRESENT: EOMI, PERRLA. ABSENT: scleral icterus Mouth exam: PRESENT: moist, neck supple Neck exam: ABSENT: meningismus, tenderness, thyromegaly, tracheal deviation Respiratory exam: PRESENT: unlabored. ABSENT: chest wall tenderness, tachypnea, wheezes Pulses: PRESENT: normal radial pulses GI/Abdominal exam: PRESENT: soft. ABSENT: distended, guarding, rebound, tenderness Rectal exam: PRESENT: deferred Extremities exam: ABSENT: clubbing Musculoskeletal exam: ABSENT: deformity Neurological exam: PRESENT: alert, awake, oriented to person, oriented to place, oriented to time, oriented to situation, CN II-XII grossly intact Psychiatric exam: ABSENT: agitated, anxious, depressed Focused psych exam: ABSENT: delusional Skin exam: ABSENT: cyanosis, erythema, jaundice Results Laboratory Results: 11/07/18 09:00 11/07/18 04:16 11/05/18 11/07/18 11/07/18 11:58 04:16 04:16 WBC 5.6 RBC 2.95 L Hgb 8.2 L Hct 24.4 L MCV 83 MCH 27.9 MCHC 33.8 RDW 15.7 H Plt Count 270 Seg Neutrophils % 51.0 Lymphocytes % 33.7 Monocytes % 9.4 Eosinophils % 5.0 Basophils % 0.9 Absolute Neutrophils 2.9 Absolute Lymphocytes 1.9 Absolute Monocytes 0.5 Absolute Eosinophils 0.3 Absolute Basophils 0.1 Sodium 140.6 Potassium 4.2 Chloride 113 H Carbon Dioxide 22 Anion Gap 6 Blood Type O POSITIVE Antibody Screen NEGATIVE 11/07/18 09:00 WBC 5.5 RBC 3.21 L Hgb 8.9 L Hct 26.7 L MCV 83 MCH 27.6 MCHC 33.2 RDW 15.5 H Plt Count 306 Seg Neutrophils % 52.3 Lymphocytes % 33.1 Monocytes % 8.5 Eosinophils % 4.7 Basophils % 1.4 Absolute Neutrophils 2.9 Absolute Lymphocytes 1.8 Absolute Monocytes 0.5 Absolute Eosinophils 0.3 Absolute Basophils 0.1 Sodium Potassium Chloride Carbon Dioxide Anion Gap Blood Type Antibody Screen Impressions: Abdomen/Pelvis CT 11/05/18 11:22 IMPRESSION: Diffuse diverticular disease without focal inflammatory changes or definitively extraluminal gas. Midline epigastric hernia containing greater omentum. The transverse colon approximates this defect without prolapsing through. GI Bleed Scan Nuclear Medicine 11/05/18 16:03 IMPRESSION: NORMAL RADIONUCLIDE GASTROINTESTINAL BLEEDING STUDY. Assessment & Plan - Diagnosis (1) Lower GI bleed Is this a current diagnosis for this admission?: Yes - Plan Summary Plan Summary: This is an 83-year-old female with lower GI bleeding. No obvious source could be identified on colonoscopy. I have recommended a fiber supplement twice daily. I will see the patient again on an as-needed basis. I have encouraged her to contact me immediately with any new questions or concerns. Please renotify if needed.
--- NOTE | 2018-11-07 14:38 | PDOC DISCHARGE SUMMARY ---
General - Admit/Disc Date/PCP Admission Date/Primary Care Provider: 11/05/18 16:05 DONATO KIM MD Discharge Date: 11/07/18 - Discharge Diagnosis (1) Lower GI bleed Is this a current diagnosis for this admission?: Yes Summary: 11/06/2018-lower GI bleed most likely secondary to diverticular origin. Bleeding scan was negative. CT scan shows multiple diverticulosis. Surgeon is planning to do colonoscopy around 10 AM today. Latest hemoglobin is 9.8. 11/07/2018-patient's latest hemoglobin is 8.2. It dropped from 9.8 yesterday. There is a significant drop of 1.6 hemoglobin. Patient denies any blood in the stool. asymptomatic. I am going to order for a stat CBC, if the hemoglobin is still low we will go ahead and transfuse 1 unit of PRBC I discussed the plan with the patient she gave the consent for blood transfusion. Repeat hemoglobin came back 8.9. Planned blood transfusion was stopped. Patient agreed to go home and follow-up with the primary care physician in 5-7 days. As I mentioned above bleeding scan was negative. Colonoscopy did not find any active bleeding. Lower GI bleed most likely secondary to diverticular disease. (2) Acute kidney injury Is this a current diagnosis for this admission?: Yes Summary: 11/06/2018 patient's baseline creatinine is around 1.3. On admission it was 1.93 improved to 1.5 with IV fluids. 11/07/2018-patient's baseline creatinine is around 1.3 improved to 1.5 yesterday. We waiting for the labs for today. PARUL is resolving. (3) HTN (hypertension) Is this a current diagnosis for this admission?: Yes Summary: 11/06/2018-patient is currently n.p.o. blood pressure is 153/89. She is on hydralazine IV as needed. She is also getting IV fluids. 11/07/2018-patient's blood pressure today is 132/62. Pulse rate of 70. We started back on her home medication nifedipine 30 mg p.o. daily. Plan is to continue the current management. She was advised to continue nifedipine 30 mg p .o. daily once she is discharged. (4) DM type 2 (diabetes mellitus, type 2) Is this a current diagnosis for this admission?: Yes Summary: 11/06/2018-patient's latest blood sugar is 117. Patient is n.p.o. She was on Januvia at home. Presently she is on insulin sliding scale. Accu-Cheks every 6 hours. 11/06/2018 latest blood sugar is 159 patient is on insulin sliding scale. She is on Januvia at home. I am going to check her hemoglobin A1c today. We will continue the present management. Was advised to continue Januvia as an outpatient. - Additional Information Resuscitation Status: Full Code Discharge Diet: Cardiac, Diabetic Discharge Activity: Activity As Tolerated Home Medications: Fenofibrate 54 mg PO QHS 09/25/17 Levocetirizine Dihydrochloride [Xyzal] 5 mg PO QHS 09/25/17 Levothyroxine Sodium 100 mcg PO Q6AM 09/25/17 Nifedipine [Nifedipine ER] 30 mg PO DAILY 09/25/17 Sitagliptin Phosphate [Januvia] 100 mg PO DAILY 09/25/17 Esomeprazole Magnesium [Nexium] 40 mg PO QHS 11/05/18 History of Present Illness History of Present Illness: SUN REMY is a 83 year old female a 83 year old female with a PMH of HTN, CKD 3, NIDDM type 2, COPD not on home O2, history of DEMIAN and B12 deficiency and hypothyroidism who was brought in due to bloody stools. Family on bedside. Patient is not in distress. She has been doing well at home but had bloody stools last night, mostly maroon colored mixed with stool. There was also some dark red blood clots noted on the toilet bowl. She had another similar episode this morning. She denies abdominal pain, nausea or vomiting. She denies chest pain, dizziness or SOB. She appears comfortable and is making jokes. Family says she had an EGd and colonoscopy 2 yrs ago which were both normal. Upon encounter, patient is on bedpan having a another BM noted with significant maroon colored stools. Surgeon also on bedside and has recommended a bleeding scan. Plan for colonoscopy tomorrow. Physical Exam Vital Signs: Temp Pulse Resp BP Pulse Ox 97.7 F 73 17 154/73 H 97 11/07/18 10:46 11/07/18 10:46 11/07/18 10:46 11/07/18 10:46 11/07/18 10:46 Intake & Output 11/06/18 11/07/18 11/08/18 06:59 06:59 06:59 Intake Total 3000 1842 Output Total 200 250 Balance 2800 1592 Weight 72.6 kg 70.1 kg General appearance: PRESENT: no acute distress Head exam: PRESENT: atraumatic Eye exam: PRESENT: PERRLA Mouth exam: PRESENT: moist Neck exam: ABSENT: carotid bruit, JVD, lymphadenopathy, thyromegaly Respiratory exam: PRESENT: clear to auscultation mychal. ABSENT: rales, rhonchi, wheezes Cardiovascular exam: PRESENT: RRR. ABSENT: diastolic murmur, rubs, systolic murmur GI/Abdominal exam: PRESENT: normal bowel sounds, soft. ABSENT: distended, guarding, mass, organolmegaly, rebound, tenderness Neurological exam: PRESENT: alert, awake, oriented to person, oriented to place, oriented to time, oriented to situation, CN II-XII grossly intact. ABSENT: motor sensory deficit Psychiatric exam: PRESENT: appropriate affect, normal mood. ABSENT: homicidal ideation, suicidal ideation Results Laboratory Results: 11/07/18 09:00 11/07/18 04:16 11/05/18 11/07/18 11/07/18 11:58 04:16 04:16 WBC 5.6 RBC 2.95 L Hgb 8.2 L Hct 24.4 L MCV 83 MCH 27.9 MCHC 33.8 RDW 15.7 H Plt Count 270 Seg Neutrophils % 51.0 Lymphocytes % 33.7 Monocytes % 9.4 Eosinophils % 5.0 Basophils % 0.9 Absolute Neutrophils 2.9 Absolute Lymphocytes 1.9 Absolute Monocytes 0.5 Absolute Eosinophils 0.3 Absolute Basophils 0.1 Sodium 140.6 Potassium 4.2 Chloride 113 H Carbon Dioxide 22 Anion Gap 6 Blood Type O POSITIVE Antibody Screen NEGATIVE 11/07/18 09:00 WBC 5.5 RBC 3.21 L Hgb 8.9 L Hct 26.7 L MCV 83 MCH 27.6 MCHC 33.2 RDW 15.5 H Plt Count 306 Seg Neutrophils % 52.3 Lymphocytes % 33.1 Monocytes % 8.5 Eosinophils % 4.7 Basophils % 1.4 Absolute Neutrophils 2.9 Absolute Lymphocytes 1.8 Absolute Monocytes 0.5 Absolute Eosinophils 0.3 Absolute Basophils 0.1 Sodium Potassium Chloride Carbon Dioxide Anion Gap Blood Type Antibody Screen Impressions: Abdomen/Pelvis CT 11/05/18 11:22 IMPRESSION: Diffuse diverticular disease without focal inflammatory changes or definitively extraluminal gas. Midline epigastric hernia containing greater omentum. The transverse colon approximates this defect without prolapsing through. GI Bleed Scan Nuclear Medicine 11/05/18 16:03 IMPRESSION: NORMAL RADIONUCLIDE GASTROINTESTINAL BLEEDING STUDY. Qualifiers - * PATIENT BEING DISCHARGED WITH ANY OF THE FOLLOWING DIAGNOSIS: No VTE patient discharged on overlapping Therapy?: Yes
== END 2018-11-07 11:19 | disposition home or self-care (01) | DRG 378 ==
LOC: ER 10:16 → EH 15:28 → UNDOADMIN 15:28 → EH 16:05 → 3N 17:29
PROVIDERS: ADMIT Hospitalist; ATTEND Hospitalist
PROC: 0DJD8ZZ Inspection of Lower Intestinal Tract, Via Natural or Artificial Opening Endoscopic (ICD-10-PCS; principal; 2018-11-06 10:00)
DX: K57.31 Diverticulosis of large intestine without perforation or abscess with bleeding (principal); N17.9 Acute kidney failure, unspecified; E78.5 Hyperlipidemia, unspecified; J44.9 Chronic obstructive pulmonary disease, unspecified; E11.22 Type 2 diabetes mellitus with diabetic chronic kidney disease; I12.9 Hypertensive chronic kidney disease with stage 1 through stage 4 chronic kidney disease, or unspecified chronic kidney disease; N18.3 Chronic kidney disease, stage 3 (moderate); M81.0 Age-related osteoporosis without current pathological fracture; K43.9 Ventral hernia without obstruction or gangrene; Z79.84 Long term (current) use of oral hypoglycemic drugs; Z79.899 Other long term (current) drug therapy; Z87.891 Personal history of nicotine dependence
CPT/HCPCS: 36415; 45378; 74176; 78278; 80048; 80051; 80053; 82962; 83690; 85025; 85027; 85610; 85730; 86850; 86900; 86901; 86920; 93005; 93010; 96360; 99285; A9560; J0171; J0360; J1200; J1610; J1642; J1815; J2250; J2310; J2405; J3010; J3490; J7030; Q9969

== ENCOUNTER → 2019-04-17 | Outpatient (CLI) | payer MEDICARE ==
[2019-04-17 11:53] LABS: ABSOLUTE EOSINOPHILS # (AUTO) 0.3 10^3/uL (0.0-0.6); ABSOLUTE MONOCYTES (AUTO) 0.4 10^3/uL (0.1-1.4); ABSOLUTE NEUT (AUTO) 3.8 10^3/uL (1.7-8.2); BASOPHILS % (AUTO) 0.8 % (0-2); EOSINOPHILS % (AUTO) 4.7 % (0-6); HEMATOCRIT 36.9 % (36.0-47.0); HEMOGLOBIN 12.2 g/dL (12.0-15.5); LYMPHOCYTES % (AUTO) 31.2 % (13-45); MEAN CORPUSCULAR HEMOGLOBIN 26.3 pg (27.0-33.4); MEAN CORPUSCULAR HGB CONC 33.1 g/dL (32.0-36.0); MEAN CORPUSCULAR VOLUME 79 fl (80-97); MONOCYTES % (AUTO) 5.6 % (3-13); PLATELET COUNT 394 10^3/uL (150-450); RED BLOOD COUNT 4.65 10^6/uL (3.72-5.28); RED CELL DISTRIBUTION WIDTH 16.7 % (11.5-14.0); SEGMENTED NEUTROPHILS % (AUTO) 57.7 % (42-78); TOTAL CELLS COUNTED % (AUTO) 100 %; WHITE BLOOD COUNT 6.6 10^3/uL (4.0-10.5)
[2019-04-17 12:20] LABS: ALBUMIN 3.3 g/dL (3.5-5.0); ANION GAP 9 (5-19); BLOOD UREA NITROGEN 25 mg/dL (7-20); CALCIUM 8.9 mg/dL (8.4-10.2); CARBON DIOXIDE 26 mmol/L (22-30); CHLORIDE 108 mmol/L (98-107); GLUCOSE 140 mg/dL (75-110); IRON(TIBC) 91.6 ug/dL (37-170); PHOSPHORUS 3.7 mg/dL (2.5-4.5); POTASSIUM 3.1 mmol/L (3.6-5.0); SODIUM 142.7 mmol/L (137-145)
[2019-04-18 12:20] LABS: APPEARANCE,URINE CLOUDY; BILIRUBIN,URINE NEGATIVE (NEGATIVE); COLOR,URINE AMBER; GLUCOSE, URINE 150 mg/dL (NEGATIVE); KETONES,URINE NEGATIVE (NEGATIVE); LEUKOCYTE ESTERASE,URINE NEGATIVE (NEGATIVE); NITRITE,URINE NEGATIVE (NEGATIVE); PROTEIN,URINE >=500 mg/dL (NEGATIVE); URINE SPECIFIC GRAVITY 1.018; UROBILINOGEN,URINE NEGATIVE mg/dL (<2.0)
== END ==
LOC: OD 11:21
PROVIDERS: ATTEND Internal Medicine Nephrology
DX: I12.9 Hypertensive chronic kidney disease with stage 1 through stage 4 chronic kidney disease, or unspecified chronic kidney disease (principal); N18.4 Chronic kidney disease, stage 4 (severe); D63.1 Anemia in chronic kidney disease; E11.22 Type 2 diabetes mellitus with diabetic chronic kidney disease
CPT/HCPCS: 36415; 80069; 81001; 82043; 82306; 82570; 82728; 83540; 83550; 83970; 85025

== ENCOUNTER 2019-05-28 12:34 | Inpatient (IN) | payer MEDICARE ==
--- NOTE | 2019-05-28 13:10 | ER Document Report ---
ED Medical Screen (RME) - General Chief Complaint: Fall Injury Stated Complaint: FALL/LEFT LEG PAIN Time Seen by Provider: 05/28/19 13:06 Primary Care Provider: HUE GARNER MD [Primary Care Provider] - Follow up as needed Mode of Arrival: Wheelchair Information source: Patient, Relative - Daughter Notes: Patient presents to the emergency department with her daughter via wheelchair for complaints of fall. Reports they found her on the ground in a praying position. Reports left leg is bigger than right leg. Reports she is falling in the past and had fracture to the hip. While patient was waiting in the waiting room I was called out there because she started drooling and could not speak. Daughter reports no history of stroke. 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 Patient is nonambulatory. Patient was unable to answer my questions. I have greeted and performed a rapid initial assessment of this patient. A com prehensive ED assessment and evaluation of the patient, analysis of test results and completion of the medical decision making process will be conducted by additional ED providers. Dictation of this chart was performed using voice recognition software; therefore, there may be some unintended grammatical errors. TRAVEL OUTSIDE OF THE [place] IN LAST 30 DAYS: No - Related Data Allergies/Adverse Reactions: levofloxacin [From Levaquin] Allergy (Verified 05/28/19 12:35) Penicillins Allergy (Verified 05/28/19 12:34) Anaphylaxis tramadol Allergy (Verified 05/28/19 12:34) Hives Past Medical History - Past Medical History Cardiac Medical History: Reports: Hx Hypercholesterolemia, Hx Hypertension Pulmonary Medical History: Reports: Hx COPD Neurological Medical History: Denies: Hx Seizures Endocrine Medical History: Reports: Hx Diabetes Mellitus Type 2 Renal/ Medical History: Denies: Hx Peritoneal Dialysis Musculoskeltal Medical History: Reports Hx Arthritis Past Surgical History: Reports: Hx Appendectomy, Hx Cholecystectomy, Hx Hysterectomy, Hx Orthopedic Surgery - left femur, hip surgery left knee, Hx Tubal Ligation - Immunizations Hx Diphtheria, Pertussis, Tetanus Vaccination: Yes History of Influenza Vaccine for 08/2017 - 01/2018 Season: No Physical Exam - Vital signs Vitals: Pulse Resp BP Pulse Ox 72 20 116/79 100 05/28/19 12:41 05/28/19 12:41 05/28/19 12:41 05/28/19 12:41 Course - Vital Signs Vital signs: Temp Pulse Resp BP Pulse Ox 72 20 116/79 100 05/28/19 12:41 05/28/19 12:41 05/28/19 12:41 05/28/19 12:41 Doctor's Discharge - Discharge Referrals: HUE GARNER MD [Primary Care Provider] - Follow up as needed
--- NOTE | 2019-05-28 13:51 | RADIOLOGY REPORT (SQ) ---
EXAM DESCRIPTION: CHEST SINGLE VIEW COMPLETED DATE/TIME: 05/28/2019 1:37 pm REASON FOR STUDY: new onset drooling, difficult speech COMPARISON: 09/25/2017 EXAM PARAMETERS: NUMBER OF VIEWS: One view. TECHNIQUE: Single frontal radiographic view of the chest acquired. RADIATION DOSE: NA LIMITATIONS: None. FINDINGS: LUNGS AND PLEURA: Focal parenchymal consolidation suggested in the right lower lung. The left lung is stable in appearance. Attenuation of the vessels and hyperlucent appearance to the garfield gs. No pneumothorax or pleural effusion. MEDIASTINUM AND HILAR STRUCTURES: No masses. Contour normal. HEART AND VASCULAR STRUCTURES: Heart normal in size. Normal vasculature. BONES: No acute findings. HARDWARE: None in the chest. OTHER: No other significant finding. IMPRESSION: 1. Focal parenchymal consolidation suggested in the right lower lung zone. TECHNICAL DOCUMENTATION: JOB ID: [id number] [employer]- All Rights Reserved Reading location - IP/workstation name: [email or web address]
[2019-05-28 14:14] LABS: ABSOLUTE BASOPHILS # (AUTO) 0.1 10^3/uL (0.0-0.2); ABSOLUTE LYMPHOCYTES (AUTO) 2.3 10^3/uL (0.5-4.7); ABSOLUTE NEUT (AUTO) 8.4 10^3/uL (1.7-8.2); BASOPHILS % (AUTO) 0.7 % (0-2); EOSINOPHILS % (AUTO) 0.1 % (0-6); HEMATOCRIT 37.7 % (36.0-47.0); LYMPHOCYTES % (AUTO) 19.2 % (13-45); MEAN CORPUSCULAR HEMOGLOBIN 26.3 pg (27.0-33.4); MEAN CORPUSCULAR HGB CONC 31.7 g/dL (32.0-36.0); MEAN CORPUSCULAR VOLUME 83 fl (80-97); MONOCYTES % (AUTO) 8.5 % (3-13); PLATELET COUNT 312 10^3/uL (150-450); RED BLOOD COUNT 4.55 10^6/uL (3.72-5.28); RED CELL DISTRIBUTION WIDTH 16.9 % (11.5-14.0); SEGMENTED NEUTROPHILS % (AUTO) 71.5 % (42-78); TOTAL CELLS COUNTED % (AUTO) 100 %; WHITE BLOOD COUNT 11.8 10^3/uL (4.0-10.5)
[2019-05-28 14:16] LABS: INTERNATIONAL RATION (INR) 1.15
[2019-05-28 14:17] LABS: PARTIAL THROMBOPLASTIN TIME 23.7 SEC (23.5-35.8)
--- NOTE | 2019-05-28 14:17 | RADIOLOGY REPORT (SQ) ---
EXAM DESCRIPTION: KNEE LEFT 4 VIEW COMPLETED DATE/TIME: 05/28/2019 1:37 pm REASON FOR STUDY: fall, hx fx COMPARISON: None. NUMBER OF VIEWS: Four views. TECHNIQUE: AP, lateral, and both oblique radiographic images acquired of the left knee. LIMITATIONS: None. FINDINGS: MINERALIZATION: Osteopenia. BONES: No definite acute fracture. Evidence of prior distal femur fracture with dysmorphic metadiaph ysis and partially visualized intramedullary deb hardware. No evidence of hardware complication. JOINT: No large joint effusion. Degenerative changes with 3 compartment osteophytosis and joint spac e loss. SOFT TISSUES: Scattered vascular calcifications. Planned T8 density overlies the lateral soft tissue s, likely postsurgical. OTHER: No other significant finding. IMPRESSION: No definite acute bony abnormality. Evidence of prior distal femur fracture with dysmorphic appearance and partially visualized intramedu llary deb fixation. TECHNICAL DOCUMENTATION: JOB ID: [id number] [employer]- All Rights Reserved Reading location - IP/workstation name: [email or web address]
[2019-05-28 14:19] LABS: PROTHROMBIN TIME 14.8 SEC (11.4-15.4)
--- NOTE | 2019-05-28 14:21 | RADIOLOGY REPORT (SQ) ---
EXAM DESCRIPTION: HIP LEFT AP/LATERAL COMPLETED DATE/TIME: 05/28/2019 1:37 pm REASON FOR STUDY: fall, hx fx COMPARISON: None. NUMBER OF VIEWS: Two views. TECHNIQUE: AP pelvis and additional frog-leg view of the left hip. LIMITATIONS: None. FINDINGS: MINERALIZATION: Osteopenia. LEFT HIP: Evidence of prior femoral neck obtaining with intramedullary femur fixation hardware. No d efinite acute bony abnormality. Degenerative changes with joint space loss and osteophytosis. RIGHT HIP: Degenerative changes with joint space loss is in osteophytosis without evidence of acute b taqueria abnormality. PUBIS AND ISCHIUM: No fracture. SACRUM: No fracture or dislocation. No worrisome bone lesions. LOWER LUMBAR SPINE: No fracture or dislocation. No worrisome bone lesions. No significant disc disea se. SOFT TISSUES: Scattered pelvic phleboliths. OTHER: No other significant finding. IMPRESSION: Decreased osseous mineralization without evidence of acute bony abnormality. Evidence of prior femoral neck gaining and left femur intramedullary hardware. COMMENT: Pelvic fractures are often occult on plain radiographs. If strong clinical suspicion for fracture, recommend CT or MR. TECHNICAL DOCUMENTATION: JOB ID: [id number] [employer]- All Rights Reserved Reading location - IP/workstation name: [email or web address]
--- NOTE | 2019-05-28 14:23 | RADIOLOGY REPORT (SQ) ---
EXAM DESCRIPTION: CT HEAD WITHOUT COMPLETED DATE/TIME: 05/28/2019 1:46 pm REASON FOR STUDY: new onset drooling, difficult speech COMPARISON: 09/12/2017 TECHNIQUE: Axial images acquired through the brain without intravenous contrast. Images reviewed wi th bone, brain and subdural windows. Additional sagittal and coronal reconstructions were generated. Images stored on PACS. All CT scanners at this facility use dose modulation, iterative reconstruction, and/or weight based d osing when appropriate to reduce radiation dose to as low as reasonably achievable (ALARA). [facility]: Dose Right [facility]: CareDose [facility]: Dose Right [facility]: Teradose 4D [facility]: [employer] RADIATION DOSE: CT Rad equipment meets quality standard of care and radiation dose reduction techniq ues were employed. CTDIvol: 53.2 mGy. DLP: 1017 mGy-cm.mGy. LIMITATIONS: None. FINDINGS: VENTRICLES: Prominent. CEREBRUM: No masses. No hemorrhage. No midline shift. Areas of low density in the white matter mos t likely due to chronic micro-vascular ischemic change. No evidence for acute infarction. CEREBELLUM: No masses. No hemorrhage. No alteration of density. No evidence for acute infarction. EXTRAAXIAL SPACES: Age-related involutional change. No fluid collections. No masses. ORBITS AND GLOBE: No intra- or extraconal masses. Normal contour of globe without masses. Prior cat aract surgery. CALVARIUM: No fracture. PARANASAL SINUSES: No fluid or mucosal thickening. SOFT TISSUES: No mass or hematoma. OTHER: No other significant finding. IMPRESSION: CHRONIC CHANGES OF ATROPHY AND MICROVASCULAR ISCHEMIA. NO ACUTE PROCESS. EVIDENCE OF ACUTE STROKE: NO. TECHNICAL DOCUMENTATION: JOB ID: [id number] Quality ID # [id number]: Final reports with documentation of one or more dose reduction techniques (e.g., Au tomated exposure control, adjustment of the mA and/or kV according to patient size, use of iterative reconstruction technique) 2010 [employer]- All Rights Reserved Reading location - IP/workstation name: [email or web address]
--- NOTE | 2019-05-28 14:45 | RADIOLOGY REPORT (SQ) ---
EXAM DESCRIPTION: CT CERVICAL SPINE WITHOUT COMPLETED DATE/TIME: 05/28/2019 1:46 pm REASON FOR STUDY: fall COMPARISON: None. TECHNIQUE: Axial images acquired through the cervical spine without intravenous contrast. Images re viewed with lung, soft tissue and bone windows. Reconstructed coronal and sagittal MPR images review ed. Images stored on PACS. All CT scanners at this facility use dose modulation, iterative reconstruction, and/or weight based d osing when appropriate to reduce radiation dose to as low as reasonably achievable (ALARA). [facility]: Dose Right [facility]: CareDose [facility]: Dose Right [facility]: Teradose 4D [facility]: [employer] RADIATION DOSE: CT Rad equipment meets quality standard of care and radiation dose reduction techniq ues were employed. CTDIvol: 15.2 mGy. DLP: 338 mGy-cm. mGy. LIMITATIONS: None. FINDINGS: ALIGNMENT: Mild straightening of the normal cervical lordosis. MINERALIZATION: Decreased. VERTEBRAL BODIES: No fractures or dislocation. DISCS: Multilevel degenerative disc disease with disc height loss throughout the cervical spine, grea test at C5-6 and C6-7. Small multilevel osteophytes. No high-grade osseous spinal canal stenosis. FACETS, LATERAL MASSES, POSTERIOR ELEMENTS: No fracture or dislocation. Multilevel facet arthropathy greatest at C2-3. HARDWARE: None in the spine. VISUALIZED RIBS: No fractures. LUNG APICES AND SOFT TISSUES: No pneumothorax. Scattered vascular calcifications. OTHER: No other significant finding. IMPRESSION: Multilevel degenerate changes without evidence of acute bony abnormality of the cervical spine. TECHNICAL DOCUMENTATION: JOB ID: [id number] Quality ID # [id number]: Final reports with documentation of one or more dose reduction techniques (e.g., Au tomated exposure control, adjustment of the mA and/or kV according to patient size, use of iterative reconstruction technique) 2010 [employer]- All Rights Reserved Reading location - IP/workstation name: [email or web address]
[2019-05-28 14:47] LABS: CREATINE KINASE MB 1.33 ng/mL (<4.55); TROPONIN I 0.016 ng/mL
[2019-05-28] MEDS ORDERED: NORMAL SALINE 500 ML IV ONE (14:52)
[2019-05-28] MEDS ORDERED: ONDANSETRON HCL INJ/PF 4 MG/2 ML SDV IV ONE (14:55)
--- NOTE | 2019-05-28 14:59 | ER Document Report ---
ED General - General Chief Complaint: Fall Injury Stated Complaint: FALL/LEFT LEG PAIN Time Seen by Provider: 05/28/19 13:06 Mode of Arrival: Wheelchair Information source: Relative, [facility] Records Cannot obtain history due to: Dementia Notes: 83-year-old female with dementia, end-stage renal disease, hypertension, type 2 diabetes, iron deficiency anemia (undergoes iron infusions) presents via private vehicle in a wheelchair with her daughter after being found next to her bed on her knees. Daughter states that at approximately 4 AM she heard the dog barking and her mother screaming when she found her in a kneeling position next to the bed. She did not believe the patient hit her head or fell backwards. Patient is not on any blood thinning medications. Daughter does report that the patient has been wheelchair-bound for a long period of time and has recently had difficulty with transferring from her bed to her commode. Daughter also reports that the patient has had a decrease in fluid and food intake. Daughter also reports that the patient had a previous fall a few days ago and had been complaining of left-sided pain and was supposed to see her primary care physician Dr. Abbasi who informed them that after today's fall the patient should be evaluated in the emergency department. Patient is alert and oriented x1. TRAVEL OUTSIDE OF THE [place] IN LAST 30 DAYS: No - HPI Onset: This morning Onset/Duration: Sudden Pain Level: Denies Associated symptoms: Nausea. denies: Nonproductive cough, Productive cough, Diarrhea, Fever, Vomiting, Shortness of breath - Related Data Allergies/Adverse Reactions: levofloxacin [From Levaquin] Allergy (Verified 05/28/19 12:35) Penicillins Allergy (Verified 05/28/19 12:34) Anaphylaxis tramadol Allergy (Verified 05/28/19 12:34) Hives Past Medical History - General Information source: Patient, Relative - Daughter, [facility] Records - Social History Smoking Status: Never Smoker Chew tobacco use (# tins/day): No Frequency of alcohol use: Rare Drug Abuse: None Lives with: Family Family History: Reviewed & Not Pertinent Patient has suicidal ideation: No Patient has homicidal ideation: No - Past Medical History Cardiac Medical History: Reports: Hx Hypercholesterolemia, Hx Hypertension Pulmonary Medical History: Reports: Hx COPD Neurological Medical History: Denies: Hx Seizures Endocrine Medical History: Reports: Hx Diabetes Mellitus Type 2 Renal/ Medical History: Denies: Hx Peritoneal Dialysis Musculoskeletal Medical History: Reports Hx Arthritis Past Surgical History: Reports: Hx Appendectomy, Hx Cholecystectomy, Hx Hysterectomy, Hx Orthopedic Surgery - left femur, hip surgery left knee, Hx Tubal Ligation - Immunizations Hx Diphtheria, Pertussis, Tetanus Vaccination: Yes Hx Pneumococcal Vaccination: 11/13/05 Review of Systems - Review of Systems -: Yes ROS unobtainable due to patient's medical condition Constitutional: denies: Fever, Recent illness Gastrointestinal: Nausea, Poor appetite, Poor fluid intake. denies: Vomiting Musculoskeletal: Joint pain, Joint swelling, Muscle pain, Leg swelling. denies: Back pain, Neck pain Neurological/Psychological: Dementia Physical Exam - Vital signs Vitals: Pulse Resp BP Pulse Ox 72 20 116/79 100 05/28/19 12:41 05/28/19 12:41 05/28/19 12:41 05/28/19 12:41 - Notes Notes: PHYSICAL EXAMINATION: GENERAL: Well-appearing, well-nourished and in no acute distress. GCS 15 HEAD: Atraumatic, normocephalic. EYES: Pupils equal round and reactive to light, extraocular movements intact, sclera anicteric, conjunctiva are normal. ENT: Nares patent, oropharynx clear without exudates. Moist mucous membranes. No hemanotympanum . No blood in nares. No dental fracture NECK: Normal range of motion, supple without lymphadenopathy. Trachea midline LUNGS: Breath sounds clear to auscultation bilaterally and equal. No wheezes rales or rhonchi. HEART: Regular rate and rhythm without murmurs. Pulses intact all throughout. ABDOMEN: Soft, nontender, nondistended abdomen. No guarding, no rebound. No masses appreciated. Musculoskeletal: Normal range of motion, no pitting edema. No cyanosis. Hip non tender, stable. Left knee-swelling with associated ecchymosis, no obvious deformity. Limited range of motion secondary to pain. Rectal; brown stool occult negative NEUROLOGICAL: Cranial nerves grossly intact. Normal speech Normal sensory, motor, and reflex exams. Alert and oriented x1 PSYCH: Normal mood, normal affect. SKIN: Ecchymosis of the knees bilaterally Course - Re-evaluation Re-evalutation: Chest X-Ray 05/28/19 13:06 IMPRESSION: 1. Focal parenchymal consolidation suggested in the right lower lung zone. Head CT 05/28/19 13:06 IMPRESSION: CHRONIC CHANGES OF ATROPHY AND MICROVASCULAR ISCHEMIA. NO ACUTE PROCESS. EVIDENCE OF ACUTE STROKE: NO. Cervical Spine CT 05/28/19 13:07 IMPRESSION: Multilevel degenerate changes without evidence of acute bony abn ormality of the cervical spine. Hip X-Ray 05/28/19 13:07 IMPRESSION: Decreased osseous mineralization without evidence of acute bony abnormality. Evidence of prior femoral neck gaining and left femur intramedullary hardware. Knee X-Ray 05/28/19 13:07 IMPRESSION: No definite acute bony abnormality. Evidence of prior distal femur fracture with dysmorphic appearance and partially visualized intramedullary deb fixation. Lower Extremity CT 05/28/19 14:51 IMPRESSION: 1. No fracture or dislocation of the left tibia or fibula. There is a partially imaged intramedullary nail fixation of the distal left femur. 2. Osteopenia. 3. Moderate tricompartmental arthrosis of the left knee. 4. Small nonspecific knee joint effusion. 5. Diffuse soft tissue swelling about the left lower leg. 05/28/19 14:58 83-year-old female with significant dementia presents after a fall that was unwitnessed at home. Currently denies pain but does have significant swelling of the left knee. Will send patient for CT of the lower extremity and will obtain venous Doppler. Patient declining pain medication. She is unable to provide any clear history secondary to her dementia so her daughter who is at the bedside provides the majority of the history. 05/28/19 15:58 Doppler at the bedside and states that the patient has an extensive clot from her common femoral all the way down to her ankle. Daughters do report that the patient had a GI bleed in October and was kept here and evaluated by gastroenterology. The patient underwent a endoscopy and colonoscopy but the source of bleeding was never discovered. At that time patient had reinaldo bloody stools. Patient's daughter who cares for the patient denies any black or bloody stools. Will contact hospitalist for admission. Patient is a DNR. 05/28/19 15:59 05/28/19 16:15 Rectal exam performed due to patient's previous history of GI bleed. This was negative for occult blood. Stool was brown. I spoke to Dr. Cobian who states that the patient has an extensive acute DVT that extends from the common femoral vein down to her ankle. Will touch base with hospitalist regarding admission. 05/28/19 16:59 Patient found to have a potassium of 7.3. This was treated with insulin, dextrose, calcium gluconate, albuterol and Kayexalate. EKG does not show any evidence of peaked T waves, prolonged QRS. I did speak to Dr. Lange who will take the patient for admission and has requested a heparin drip. 05/28/19 21:03 - Vital Signs Vital signs: Temp Pulse Resp BP Pulse Ox 98.1 F 66 23 H 151/80 H 99 05/28/19 19:49 05/28/19 14:11 05/28/19 19:00 05/28/19 15:01 05/28/19 19:00 - Laboratory Result Diagrams: 05/28/19 14:02 05/28/19 16:00 Laboratory results interpreted by me: 05/28/19 05/28/19 05/28/19 13:58 14:02 15:25 WBC 11.8 H MCH 26.3 L MCHC 31.7 L RDW 16.9 H Absolute Neutrophils 8.4 H Potassium Chloride Carbon Dioxide BUN Creatinine Est GFR ( Amer) Est GFR (Non-Af Amer) Glucose POC Glucose 195 H Total Bilirubin Direct Bilirubin AST Creatine Kinase Urine Protein >=500 H Urine Glucose (UA) 150 H Urine Blood MODERATE H 05/28/19 16:00 WBC MCH MCHC RDW Absolute Neutrophils Potassium 7.3 H* Chloride 114 H Carbon Dioxide 15 L BUN 51 H Creatinine 4.41 H Est GFR ( Amer) 12 L Est GFR (Non-Af Amer) 10 L Glucose 157 H POC Glucose Total Bilirubin 1.4 H Direct Bilirubin 1.0 H AST 48 H Creatine Kinase 636 H Urine Protein Urine Glucose (UA) Urine Blood - Diagnostic Test Radiology reviewed: Image reviewed, Reports reviewed - EKG Interpretation by Me EKG shows normal: Sinus rhythm Rate: Normal Rhythm: NSR When compared to previous EKG there are: No significant change Discharge - Discharge Clinical Impression: Hyperkalemia, End stage renal disease Dvt femoral (deep venous thrombosis) Qualifiers: Chronicity: acute Laterality: left Qualified Code(s): I82.412 - Acute embolism and thrombosis of left femoral vein DM type 2 (diabetes mellitus, type 2) Qualifiers: Diabetes mellitus long-term insulin use: without termite helper use Diabetes mellitus complication status: without complication Qualified Code(s): E11.9 - Type 2 diabetes mellitus without complications Condition: Fair Disposition: ADMITTED INPATIENT Admitting Provider: Anisa (Hospitalist) Unit Admitted: Telemetry
--- NOTE | 2019-05-28 15:40 | RADIOLOGY REPORT (SQ) ---
EXAM DESCRIPTION: CT LT LOWER EXTREMITY WITHOUT COMPLETED DATE/TIME: 05/28/2019 3:13 pm REASON FOR STUDY: swelling, unable to flex COMPARISON: None. TECHNIQUE: CT scan of the right tibia and fibula performed without intravenous contrast. Images rev iewed with soft tissue and bone windows. Reconstructed coronal and sagittal MPR images reviewed. Al l images stored on PACS. All CT scanners at this facility use dose modulation, iterative reconstruction, and/or weight based d osing when appropriate to reduce radiation dose to as low as reasonably achievable (ALARA). [facility]: Dose Right [facility]: CareDose [facility]: Dose Right [facility]: Teradose 4D [facility]: [employer] RADIATION DOSE: CT Rad equipment meets quality standard of care and radiation dose reduction techniq ues were employed. CTDIvol: 4.1 mGy. DLP: 232 mGy-cm. mGy. LIMITATIONS: None. FINDINGS: No fracture or dislocation of the left tibia or fibula. There is a partially imaged intra medullary nail fixation of the distal left femur. Osteopenia. Moderate tricompartmental arthrosis o f the left knee. Small nonspecific knee joint effusion. Diffuse soft tissue swelling about the left lower leg. IMPRESSION: 1. No fracture or dislocation of the left tibia or fibula. There is a partially imaged intramedullary nail fixation of the distal left femur. 2. Osteopenia. 3. Moderate tricompartmental arthrosis of the left knee. 4. Small nonspecific knee joint effusion. 5. Diffuse soft tissue swelling about the left lower leg. TECHNICAL DOCUMENTATION: JOB ID: [id number] Quality ID # [id number]: Final reports with documentation of one or more dose reduction techniques (e.g., Au tomated exposure control, adjustment of the mA and/or kV according to patient size, use of iterative reconstruction technique) 2010 [employer]- All Rights Reserved Reading location - IP/workstation name: [email or web address]
[2019-05-28 15:54] LABS: AMORPHOUS SEDIMENT,URINE TRACE /HPF; APPEARANCE,URINE CLOUDY; BILIRUBIN,URINE NEGATIVE (NEGATIVE); GLUCOSE, URINE 150 mg/dL (NEGATIVE); KETONES,URINE NEGATIVE (NEGATIVE); LEUKOCYTE ESTERASE,URINE NEGATIVE (NEGATIVE); NITRITE,URINE NEGATIVE (NEGATIVE); PROTEIN,URINE >=500 mg/dL (NEGATIVE); UROBILINOGEN,URINE NEGATIVE mg/dL (<2.0)
[2019-05-28 15:55] LABS: COLOR,URINE DARK YELLOW
[2019-05-28 16:45] LABS: ALANINE AMINOTRANSFERASE 32 U/L (9-52); ALBUMIN 3.7 g/dL (3.5-5.0); ALKALINE PHOSPHATASE 65 U/L (38-126); ANION GAP 11 (5-19); ASPARTATE AMINO TRANSFERASE 48 U/L (14-36); BILIRUBIN,TOTAL 1.4 mg/dL (0.2-1.3); BLOOD UREA NITROGEN 51 mg/dL (7-20); CALCIUM 9.4 mg/dL (8.4-10.2); CARBON DIOXIDE 15 mmol/L (22-30); CHLORIDE 114 mmol/L (98-107); CREATINE KINASE 636 U/L (30-135); GLUCOSE 157 mg/dL (75-110)
[2019-05-28 16:47] LABS: POTASSIUM 7.3 mmol/L (3.6-5.0)
[2019-05-28] MEDS ORDERED: CALCIUM GLUCONATE 1000 MG/10 ML INJ IV ONE (16:55)
[2019-05-28] MEDS ORDERED: INSULIN REG, HUMAN 100 UNIT/ML 3 ML VIAL (PYX) IV ONE (16:55)
[2019-05-28] MEDS ORDERED: HEPARIN SODIUM,PORCINE/D5W 25,000 UNIT/250 ML RTUINJ IV PRN (16:56)
[2019-05-28] MEDS ORDERED: ALBUTEROL SULFATE 0.083% NEB 2.5 MG/3 ML AMPUL NEB ONE (16:56)
[2019-05-28] MEDS ORDERED: DEXTROSE 50%-WATER 25 GM/50 ML DISP.SYRIN IV ONE (16:56)
[2019-05-28] MEDS ORDERED: HEPARIN SOD (PORCINE) 1,000 UNIT/ML 10 ML VIAL IV ONE (16:56)
[2019-05-28] MEDS ORDERED: SODIUM POLYSTYRENE SULFONATE 15 GM/60 ML PO ONE (16:56)
[2019-05-28] MEDS ORDERED: NORMAL SALINE 1000 ML 1,000 ML IV PRN (17:35)
[2019-05-28] MEDS: HEPARIN SODIUM,PORCINE/D5W 25,000 UNIT/250 ML RTUINJ IV PRN (18:26)
--- NOTE | 2019-05-28 18:57 | PDOC H&P ---
History of Present Illness Admission Date/PCP: 05/28/19 17:06 DONATO KIM MD History of Present Illness: SUN REMY is a 83 year old female with a PMH of dementia, HTN, CKD 4, NIDDM type 2, COPD not on home O2, history of DEMIAN and B12 deficiency, hypothyroidism and history of GI bleed from a diverticular bleed who was brought in due to left leg swelling. Family says that patient has baseline dementia but she was noted to be more confused than her baseline the past 2 days. She reportedly fell at home and was noted to curled up earlier today. She was also noted to have swollen left lower extremity. In the ER, patient was noted to be in acute renal failure with a creatinine of 4 and a potassium of 7.3. She does take potassium supplements at home. She was also noted to have an extensive left lower extremity DVT. Family has already expressed that she closely follows up with Dr. Jordan and she has expressed that she does not want to be initiated on any dialysis if the need arises. Family also has discussed with patient earlier and she has already been made a DNR/DNI. On encounter, patient appears very comfortable and very cheerful. She is making jokes with this provider. She denies any acute complaint aside from her left leg pain. She denies any chest pain or shortness of breath. She is saturating well on room air. Past Medical History Cardiac Medical History: Reports: Hyperlipidema, Hypertension Pulmonary Medical History: Reports: Chronic Obstructive Pulmonary Disease (COPD) Neurological Medical History: Denies: Seizures Endocrine Medical History: Reports: Diabetes Mellitus Type 2 Musculoskeltal Medical History: Reports: Arthritis Past Surgical History Past Surgical History: Reports: Appendectomy, Cholecystectomy, Hysterectomy, Orthopedic Surgery - left femur, hip surgery left knee, Tubal Ligation Social History Lives with: Family Smoking Status: Never Smoker Frequency of Alcohol Use: None Hx Recreational Drug Use: No Hx Prescription Drug Abuse: No Family History Family History: Reviewed & Not Pertinent Parental Family History Reviewed: Yes - No premature CAD Children Family History Reviewed: No Sibling(s) Family History Reviewed.: No Medication/Allergy Home Medications: Atenolol [Tenormin 50 mg Tablet] 50 mg PO BID 05/28/19 Atorvastatin Calcium [Lipitor 40 mg Tablet] 40 mg PO QHS 05/28/19 Calcitriol [Rocaltrol 0.25 mcg Capsule] 0.25 mcg PO MOWEFR@1000 05/28/19 Docusate Sodium [Colace 100 mg Capsule] 100 mg PO BID 05/28/19 Ergocalciferol (Vitamin D2) [Drisdol 50,000 unit (1.25MG) Capsule] 50,000 unit PO HOYOS@1000 05/28/19 Esomeprazole Magnesium [Nexium] 20 mg PO DAILY 05/28/19 Fenofibrate [Fenoglide] 54 mg PO QHS 05/28/19 Ferrous Sulfate [Feosol 325 mg Tablet] 325 mg PO DAILY 05/28/19 Levocetirizine Dihydrochloride [Xyzal] 5 mg PO QHS 05/28/19 Levothyroxine Sodium [Synthroid 0.1 mg Tablet] 0.1 mg PO Q6AM 05/28/19 Lidocaine [Lidoderm 5% (700 mg) Transdermal Patch] 1 patch TOP DAILY 05/28/19 Losartan Potassium [Cozaar 50 mg Tablet] 50 mg PO DAILY 05/28/19 Megestrol Acetate 10 ml PO DAILY 05/28/19 Nifedipine [Procardia XL 30 mg Tablet] 30 mg PO DAILY 05/28/19 Potassium Chloride [Klor-Con M20] 20 meq PO DAILY 05/28/19 Sitagliptin Phosphate [Januvia 50 mg Tablet] 50 mg PO DAILY 05/28/19 Allergies/Adverse Reactions: levofloxacin [From Levaquin] Allergy (Verified 05/28/19 12:35) Penicillins Allergy (Verified 05/28/19 12:34) Anaphylaxis tramadol Allergy (Verified 05/28/19 12:34) Hives Review of Systems All systems: reviewed and no additional remarkable complaints except as stated - As mentioned in HPI Physical Exam Vital Signs: Temp Pulse Resp BP Pulse Ox 66 24 H 133/66 H 100 05/28/19 14:11 05/28/19 14:11 05/28/19 14:11 05/28/19 14:11 Intake & Output 05/27/19 05/28/19 05/29/19 06:59 06:59 06:59 Intake Total 500 Balance 500 Weight 146 lb 13.246 oz General appearance: PRESENT: no acute distress, well-developed, well-nourished Head exam: PRESENT: atraumatic, normocephalic Eye exam: PRESENT: conjunctiva pink, EOMI, PERRLA. ABSENT: scleral icterus Ear exam: PRESENT: normal external ear exam Mouth exam: PRESENT: moist, tongue midline Neck exam: ABSENT: carotid bruit, JVD, lymphadenopathy, thyromegaly Respiratory exam: PRESENT: clear to auscultation mychal. ABSENT: rales, rhonchi, wheezes Cardiovascular exam: PRESENT: RRR. ABSENT: diastolic murmur, rubs, systolic murmur Pulses: PRESENT: normal dorsalis pedis pul GI/Abdominal exam: PRESENT: normal bowel sounds, soft. ABSENT: distended, guarding, mass, organolmegaly, rebound, tenderness Rectal exam: PRESENT: deferred Extremities exam: PRESENT: +2 edema Neurological exam: PRESENT: alert, awake, oriented to person, oriented to place, CN II-XII grossly intact. ABSENT: oriented to time, oriented to situation, motor sensory deficit Results Laboratory Results: 05/28/19 14:02 05/28/19 16:00 05/28/19 05/28/19 05/28/19 14:02 14:02 15:25 WBC 11.8 H RBC 4.55 Hgb 12.0 Hct 37.7 MCV 83 MCH 26.3 L MCHC 31.7 L RDW 16.9 H Plt Count 312 Seg Neutrophils % 71.5 Lymphocytes % 19.2 Monocytes % 8.5 Eosinophils % 0.1 Basophils % 0.7 Absolute Neutrophils 8.4 H Absolute Lymphocytes 2.3 Absolute Monocytes 1.0 Absolute Eosinophils 0.0 Absolute Basophils 0.1 Sodium Cancelled Potassium Cancelled Chloride Cancelled Carbon Dioxide Cancelled Anion Gap Cancelled BUN Cancelled Creatinine Cancelled Est GFR ( Amer) Cancelled Est GFR (Non-Af Amer) Cancelled Glucose Cancelled Calcium Cancelled Total Bilirubin Cancelled AST Cancelled ALT Cancelled Alkaline Phosphatase Cancelled Total Protein Cancelled Albumin Cancelled Urine Color DARK YELLOW Urine Appearance CLOUDY Urine pH 5.0 Ur Specific [place] 1.020 Urine Protein >=500 H Urine Glucose (UA) 150 H Urine Ketones NEGATIVE Urine Blood MODERATE H Urine Nitrite NEGATIVE Ur Leukocyte Esterase NEGATIVE Urine WBC (Auto) 6 Urine RBC (Auto) 6 05/28/19 16:00 WBC RBC Hgb Hct MCV MCH MCHC RDW Plt Count Seg Neutrophils % Lymphocytes % Monocytes % Eosinophils % Basophils % Absolute Neutrophils Absolute Lymphocytes Absolute Monocytes Absolute Eosinophils Absolute Basophils Sodium 140.0 Potassium 7.3 H* Chloride 114 H Carbon Dioxide 15 L Anion Gap 11 BUN 51 H Creatinine 4.41 H Est GFR ( Amer) 12 L Est GFR (Non-Af Amer) 10 L Glucose 157 H Calcium 9.4 Total Bilirubin 1.4 H AST 48 H ALT 32 Alkaline Phosphatase 65 Total Protein 7.0 Albumin 3.7 Urine Color Urine Appearance Urine pH Ur Specific [place] Urine Protein Urine Glucose (UA) Urine Ketones Urine Blood Urine Nitrite Ur Leukocyte Esterase Urine WBC (Auto) Urine RBC (Auto) 05/28/19 05/28/19 05/28/19 14:02 14:02 16:00 Creatine Kinase Cancelled 636 H CK-MB (CK-2) 1.33 Troponin I 0.016 Impressions: Chest X-Ray 05/28/19 13:06 IMPRESSION: 1. Focal parenchymal consolidation suggested in the right lower lung zone. Head CT 05/28/19 13:06 IMPRESSION: CHRONIC CHANGES OF ATROPHY AND MICROVASCULAR ISCHEMIA. NO ACUTE PROCESS. EVIDENCE OF ACUTE STROKE: NO. Cervical Spine CT 05/28/19 13:07 IMPRESSION: Multilevel degenerate changes without evidence of acute bony abnormality of the cervical spine. Hip X-Ray 05/28/19 13:07 IMPRESSION: Decreased osseous mineralization without evidence of acute bony abnormality. Evidence of prior femoral neck gaining and left femur intramedullary hardware. Knee X-Ray 05/28/19 13:07 IMPRESSION: No definite acute bony abnormality. Evidence of prior distal femur fracture with dysmorphic appearance and partially visualized intramedullary deb fixation. Lower Extremity CT 05/28/19 14:51 IMPRESSION: 1. No fracture or dislocation of the left tibia or fibula. There is a partially imaged intramedullary nail fixation of the distal left femur. 2. Osteopenia. 3. Moderate tricompartmental arthrosis of the left knee. 4. Small nonspecific knee joint effusion. 5. Diffuse soft tissue swelling about the left lower leg. Assessment and Plan - Diagnosis (1) Acute deep vein thrombosis (DVT) of left lower extremity Is this a current diagnosis for this admission?: Yes Plan: Discussed benefits and risks of anticoagulation with whole family on bedside. They are aware of the risk of bleeding especially the fact that she was admitted here in October for a diverticular bleed. We will go ahead with initiating IV heparin. (2) Acute on chronic renal failure Is this a current diagnosis for this admission?: Yes Plan: Patient was a known CKD for patient. Patient is making adequate urine at the moment. Will start IV fluids. As mentioned, family expressed that she has previously made the decision not to be initiated and dialysis if she progresses to ESRD. (3) DM type 2 (diabetes mellitus, type 2) Qualifiers: Diabetes mellitus jail insulin use: without terminal make up operator use Diabetes mellitus complication status: without complication Qualified Code(s): E11.9 - Type 2 diabetes mellitus without complications Is this a current diagnosis for this admission?: Yes Plan: Sliding scale for now. (4) Hyperkalemia Is this a current diagnosis for this admission?: Yes Plan: Patient does take potassium supplements at home. Insulin, glucose and calcium regimen ordered in the ER. Kayexalate already has been ordered. (5) HTN (hypertension) Is this a current diagnosis for this admission?: Yes Plan: Hold losartan for now. - Time Time Spent with patient: 25-34 minutes
--- NOTE | 2019-05-28 19:01 | ADVANCED CARE ---
- Diagnosis (1) Acute deep vein thrombosis (DVT) of left lower extremity Diagnosis Current: Yes (2) Acute on chronic renal failure Diagnosis Current: Yes (3) DM type 2 (diabetes mellitus, type 2) Diagnosis Current: Yes (4) Hyperkalemia Diagnosis Current: Yes Resuscitation Status: Do Not Resuscitate Discussion: Discussed with family at bedside. Family has already expressed that she closely follows up with Dr. Jordan and she has expressed that she does not want to be initiated on any dialysis if the need arises. Family also has discussed with patient earlier and she has already been made a DNR/DNI. Patricia, the daughter says that the whole family decides for her care but she will be the main designated medical surrogate decision-maker. The rest of the family in the room concurs to this.
--- NOTE | 2019-05-28 19:09 | EKG REPORT ---
SEVERITY:- NORMAL ECG - SINUS RHYTHM : Confirmed by: Laith Dodd MD 28-May-2019 19:08:25
[2019-05-28] MEDS ORDERED: DEXTROSE 50%-WATER 25 GM/50 ML DISP.SYRIN IV PRN ×2 (19:42)
[2019-05-28] MEDS ORDERED: DEXTROSE 40% GEL 15 GM TUBE PO PRN ×2 (19:42)
[2019-05-28] MEDS ORDERED: GLUCAGON,HUMAN RECOMB 1 MG INJ IM PRN (19:42)
[2019-05-28] MEDS: MORPHINE SULFATE 10 MG/ML INJ IV PRN (20:17)
[2019-05-28] MEDS: INSULIN LISPRO 100 UNIT/ML 3 ML VIAL SUBCUT SCH (22:40)
--- NOTE | 2019-05-29 06:53 | XCELERA REPORT ---
[address] [address] Lower Extremity Venous Evaluation Procedure: Color flow and duplex imaging of the veins of the left lower extremity as well as the right Common Femoral vein. Right Sided Venous Evaluation The right common femoral vein is fully compressible. Spontaneous and phasic flow is present in the right common femoral vein. Left Sided Venous Evaluation Abnormal vessel filling, no compression or Colour flow , enlarged veins with surrounding loss of tissue definition, from Common Femoral down to the infrageniculate veins. Also in the Greater Saphenous vein. Critical Findings Discussed with Dr Guo. Interpretation Summary Positive for very extensive, acute deep and superficial vein thrombosis in the left lower extremity. Acute left sided DVT. Name: SUN REMY Age: 83 yrs Gender: Female : 1935 Patient Status: Emergency Patient Location: ER Study Date: 05/28/2019 03:42 PM Reason For Study: pain sweling left leg Ordering Physician: TIMOTHY GUO Performed By: Tahira Noble : TIMOTHY GUO > Etienne Cobian
[2019-05-29 07:23] LABS: HEMATOCRIT 34.3 % (36.0-47.0); HEMOGLOBIN 10.8 g/dL (12.0-15.5); MEAN CORPUSCULAR HEMOGLOBIN 26.2 pg (27.0-33.4); MEAN CORPUSCULAR HGB CONC 31.5 g/dL (32.0-36.0); MEAN CORPUSCULAR VOLUME 83 fl (80-97); PLATELET COUNT 298 10^3/uL (150-450); RED BLOOD COUNT 4.12 10^6/uL (3.72-5.28); WHITE BLOOD COUNT 12.3 10^3/uL (4.0-10.5)
[2019-05-29] MEDS: INSULIN LISPRO 100 UNIT/ML 3 ML VIAL SUBCUT SCH ×4 (07:33→22:30)
[2019-05-29 07:48] LABS: ANION GAP 10 (5-19); BLOOD UREA NITROGEN 48 mg/dL (7-20); CARBON DIOXIDE 15 mmol/L (22-30); CHLORIDE 116 mmol/L (98-107); GLUCOSE 139 mg/dL (75-110)
[2019-05-29] MEDS: HEPARIN SOD (PORCINE) 1,000 UNIT/ML 10 ML VIAL IV PRN (07:56)
[2019-05-29 07:57] LABS: POTASSIUM 5.5 mmol/L (3.6-5.0)
[2019-05-29] MEDS: HEPARIN SODIUM,PORCINE/D5W 25,000 UNIT/250 ML RTUINJ IV PRN (15:05)
[2019-05-29] MEDS ORDERED: HYDRALAZINE HCL INJ/PF 20 MG/1 ML SDV IV PRN (17:08)
--- NOTE | 2019-05-29 17:09 | RADIOLOGY REPORT (SQ) ---
EXAM DESCRIPTION: KNEE RIGHT 2 VIEWS COMPLETED DATE/TIME: 05/29/2019 4:58 pm REASON FOR STUDY: right knee pain COMPARISON: None. NUMBER OF VIEWS: Two views TECHNIQUE: AP and lateral radiographic images acquired of the right knee. LIMITATIONS: None. FINDINGS: MINERALIZATION: Osteoporotic BONES: No acute fracture or dislocation. No worrisome bone lesions. JOINT: Trace suprapatellar knee joint effusion. High-grade patellofemoral compartment joint space na rrowing and bony spurring. Mild medial and lateral compartment joint space narrowing and bony spurri ng SOFT TISSUES: No soft tissue swelling. No radio-opaque foreign body. OTHER: No other significant finding. IMPRESSION: Osteoarthritis Trace suprapatellar knee joint effusion No gross acute displaced fracture TECHNICAL DOCUMENTATION: JOB ID: [id number] [employer]- All Rights Reserved Reading location - IP/workstation name: [email or web address]
--- NOTE | 2019-05-29 17:14 | PDOC PROGRESS REPORT ---
Subjective Progress Note for:: 05/29/19 Subjective:: SUN REMY is a 83 year old female with a PMH of dementia, HTN, CKD 4, NIDDM type 2, COPD not on home O2, history of DEMIAN and B12 deficiency, hypothyroidism and history of GI bleed from a diverticular bleed who was brought in due to left leg swelling. He was found to have an acute left lower extremity DVT and was also noted to be in acute renal failure with severe hyperkalemia. No acute event overnight. She remains cheerful and comfortable this morning. She did complain of pain when left leg was. Left lower extremity still appears swollen but does not appear to be worse from yesterday. No discoloration. She denies chest pain or shortness of breath. Reason For Visit: EXTENSIVE DVT,ACUTE RENAL FAILURE,HYPERKALEMIA Physical Exam Vital Signs: Temp Pulse Resp BP Pulse Ox 98.6 F 76 20 171/80 H 100 05/29/19 15:53 05/29/19 15:53 05/29/19 15:53 05/29/19 15:53 05/29/19 15:53 Intake & Output 05/28/19 05/29/19 05/30/19 06:59 06:59 06:59 Intake Total 500 640 Balance 500 640 Weight 151 lb 0.266 oz General appearance: PRESENT: no acute distress, well-developed, well-nourished Head exam: PRESENT: atraumatic, normocephalic Eye exam: PRESENT: conjunctiva pink, EOMI, PERRLA. ABSENT: scleral icterus Ear exam: PRESENT: normal external ear exam Mouth exam: PRESENT: moist, tongue midline Neck exam: ABSENT: carotid bruit, JVD, lymphadenopathy, thyromegaly Respiratory exam: PRESENT: clear to auscultation mychal. ABSENT: rales, rhonchi, wheezes Cardiovascular exam: PRESENT: RRR. ABSENT: diastolic murmur, rubs, systolic m urmur Pulses: PRESENT: normal dorsalis pedis pul GI/Abdominal exam: PRESENT: normal bowel sounds, soft. ABSENT: distended, guarding, mass, organolmegaly, rebound, tenderness Rectal exam: PRESENT: deferred Extremities exam: PRESENT: +2 edema - left LE Neurological exam: PRESENT: alert, awake, oriented to person, oriented to place, CN II-XII grossly intact. ABSENT: oriented to time, oriented to situation, motor sensory deficit Results Laboratory Results: 05/29/19 06:58 05/29/19 06:58 05/29/19 05/29/19 05/29/19 06:58 06:58 11:45 WBC 12.3 H RBC 4.12 Hgb 10.8 L Hct 34.3 L MCV 83 MCH 26.2 L MCHC 31.5 L RDW 17.0 H Plt Count 298 Sodium 140.5 Potassium 5.5 H D Chloride 116 H Carbon Dioxide 15 L Anion Gap 10 BUN 48 H Creatinine 4.18 H Est GFR ( Amer) 12 L Est GFR (Non-Af Amer) 10 L Glucose 139 H Calcium 9.0 Stool Occult Blood NEGATIVE 05/28/19 05/28/19 05/28/19 14:02 14:02 16:00 Creatine Kinase Cancelled 636 H CK-MB (CK-2) 1.33 Troponin I 0.016 Impressions: Chest X-Ray 05/28/19 13:06 IMPRESSION: 1. Focal parenchymal consolidation suggested in the right lower lung zone. Head CT 05/28/19 13:06 IMPRESSION: CHRONIC CHANGES OF ATROPHY AND MICROVASCULAR ISCHEMIA. NO ACUTE PROCESS. EVIDENCE OF ACUTE STROKE: NO. Cervical Spine CT 05/28/19 13:07 IMPRESSION: Multilevel degenerate changes without evidence of acute bony abnormality of the cervical spine. Hip X-Ray 05/28/19 13:07 IMPRESSION: Decreased osseous mineralization without evidence of acute bony abnormality. Evidence of prior femoral neck gaining and left femur intramedullary hardware. Lower Extremity CT 05/28/19 14:51 IMPRESSION: 1. No fracture or dislocation of the left tibia or fibula. There is a partially imaged intramedullary nail fixation of the distal left femur. 2. Osteopenia. 3. Moderate tricompartmental arthrosis of the left knee. 4. Small nonspecific knee joint effusion. 5. Diffuse soft tissue swelling about the left lower leg. Knee X-Ray 05/29/19 00:00 IMPRESSION: Osteoarthritis Trace suprapatellar knee joint effusion No gross acute displaced fracture Assessment and Plan - Diagnosis (1) Acute deep vein thrombosis (DVT) of left lower extremity Is this a current diagnosis for this admission?: Yes Plan: Continue heparin drip. No signs of bleeding. (2) Acute on chronic renal failure Is this a current diagnosis for this admission?: Yes Plan: P creatinine has slightly trended down from 4.4-4.1. At[place] was a known CKD for patient. Patient is making adequate urine at the moment. Will start IV fluids. As mentioned, family expressed that she has previously made the decision not to be initiated and dialysis if she progresses to ESRD. 05/29: Creatinine has trended down slightly from 4.4-4.1. Potassium down to 5.5 from 7.3. Appreciate nephrology input. (3) DM type 2 (diabetes mellitus, type 2) Qualifiers: Diabetes mellitus mcfp insulin use: without mcfp use Diabetes mellitus complication status: without complication Qualified Code(s): E11.9 - Type 2 diabetes mellitus without complications Is this a current diagnosis for this admission?: Yes Plan: Sliding scale for now. (4) Hyperkalemia Is this a current diagnosis for this admission?: Yes Plan: Patient does take potassium supplements at home. She got insulin, glucose and calcium regimen and Kayexalate in the ER. 05/29: Improved. Potassium down to 5.5 from 7.3. - Time Time Spent with patient: 25-34 minutes
[2019-05-29] MEDS: MORPHINE SULFATE 10 MG/ML INJ IV PRN (17:30)
[2019-05-29] MEDS: DEXTROSE 5%-WATER 1000 ML 1,000 ML with SODIUM BICARBONATE 150 MEQ IV PRN ×2 (17:31)
--- NOTE | 2019-05-29 20:47 | PDOC CONSULTATION ---
Consultation Consult Date: 05/29/19 Provider Consulted: HUE GARNER Consult reason:: I was asked to see the patient due to acute worsening of kidney function and hyperkalemia. History of Present Illness Admission Date/PCP: 05/28/19 17:06 DONATO KIM MD History of Present Illness: SUN REMY is a 83 year old female known to me with history of chronic kidney disease stage IV, and associated microalbuminuria, diabetes mellitus type 2, hypertension, anemia of chronic kidney disease, COPD on home oxygen who presented in the emergency room with left leg swelling. Patient has baseline dementia so history is actually from previous emergency room and hospitalist records as the patient cannot really give a reliable history. At home the patient was noted to be confused for 2 days. She fell yesterday. Initial evaluation in the emergency room showed extensive left lower extremity DVT. He was also noted to have potassium of 7.3, BUN of 51, creatinine of 4.41 with EGFR of 10 and bicarbonate of 15. Patient's baseline creatinine ranges around 2+ with a EGFR of 25 the last time I checked her on February 2019. Today she has a potassium of 5.5 after being given medications, her BUN is 48 and creatinine of 4.18. Her bicarbonate continues to be 15. Her urinalysis showed greater than 500 of protein, moderate blood, WBC of 6 and RBC of 6. When I came in she appears to be comfortable. She says she feels "so-so". She admits feeling a little tired. Other than that she denies any shortness of breath, nausea, vomiting no chest pains. She is currently on heparin drip and receiving normal saline at 125 mL an hour. She does not have a Gibbs catheter no urine output is not being quantified. Yesterday the family indicated that the patient does not want dialysis at any time. Today the patient actually confirmed it to me. Past Medical History Cardiac Medical History: Reports: Hyperlipidemia, Hypertension-primary Pulmonary Medical History: Reports: Chronic Obstructive Pulmonary Disease (COPD) Endocrine Medical History: Reports: Diabetes Mellitus Type 2, Hypothyroidism Renal/ Medical History: Reports: Chronic Kidney Disease Stage IV, Nephrolithiasis, Proteinuria, Secondary Hyperparathyroidism GI Medical History: Reports: Gastroesophageal Reflux Disease Musculoskeltal Medical History: Reports: Arthritis, Other - Osteoporosis, low back pain, left hip/femoral fracture, Psychiatric Medical History: Reports: Dementia Hematology Medical History: Reports Anemia of Chronic Kidney Disease, Reports Iron Deficiency Anemia Past Surgical History Past Surgical History: Reports: Appendectomy, Cholecystectomy, Hysterectomy, Ort hopedic Surgery - left femur, hip surgery left knee, Tubal Ligation Social History Information Source: [facility] Records Lives with: Family Smoking Status: Never Smoker Frequency of Alcohol Use: None Hx Recreational Drug Use: No Hx Prescription Drug Abuse: No - Advance Directive Resuscitation Status: Do Not Resuscitate Family History Family History: CAD - Father, Chronic Kidney Disease - Mother and brother, CVA - Mother, DM - Mother and brother, Hypertension - Father, mother and brother Parental Family History Reviewed: Yes Children Family History Reviewed: Unknown Sibling(s) Family History Reviewed.: Yes Medication/Allergy Home Medications: Atenolol [Tenormin 50 mg Tablet] 50 mg PO BID 05/28/19 Atorvastatin Calcium [Lipitor 40 mg Tablet] 40 mg PO QHS 05/28/19 Calcitriol [Rocaltrol 0.25 mcg Capsule] 0.25 mcg PO MOWEFR@1000 05/28/19 Docusate Sodium [Colace 100 mg Capsule] 100 mg PO BID 05/28/19 Ergocalciferol (Vitamin D2) [Drisdol 50,000 unit (1.25MG) Capsule] 50,000 unit PO HOYOS@1000 05/28/19 Esomeprazole Magnesium [Nexium] 20 mg PO DAILY 05/28/19 Fenofibrate [Fenoglide] 54 mg PO QHS 05/28/19 Ferrous Sulfate [Feosol 325 mg Tablet] 325 mg PO DAILY 05/28/19 Levocetirizine Dihydrochloride [Xyzal] 5 mg PO QHS 05/28/19 Levothyroxine Sodium [Synthroid 0.1 mg Tablet] 0.1 mg PO Q6AM 05/28/19 Lidocaine [Lidoderm 5% (700 mg) Transdermal Patch] 1 patch TOP DAILY 05/28/19 Losartan Potassium [Cozaar 50 mg Tablet] 50 mg PO DAILY 05/28/19 Megestrol Acetate 10 ml PO DAILY 05/28/19 Nifedipine [Procardia XL 30 mg Tablet] 30 mg PO DAILY 05/28/19 Potassium Chloride [Klor-Con M20] 20 meq PO DAILY 05/28/19 Sitagliptin Phosphate [Januvia 50 mg Tablet] 50 mg PO DAILY 05/28/19 Allergies/Adverse Reactions: levofloxacin [From Levaquin] Allergy (Verified 05/28/19 12:35) Penicillins Allergy (Verified 05/28/19 12:34) Anaphylaxis tramadol Allergy (Verified 05/28/19 12:34) Hives Review of Systems All systems: reviewed and no additional remarkable complaints except as stated Review of Systems: Constitutional: ABSENT: chills, fever(s), headache(s), weight gain, weight loss; admits fatigue Eyes: ABSENT: visual disturbances Ears: ABSENT: hearing changes Cardiovascular: ABSENT: chest pain, dyspnea on exertion, orthropnea, palpitations; admits left lower extremity edema Respiratory: ABSENT: cough, dyspnea, hemoptysis Gastrointestinal: ABSENT: abdominal pain, constipation, diarrhea, hematemesis, hematochezia, nausea, vomiting Genitourinary: ABSENT: dysuria, hematuria Musculoskeletal: ABSENT: joint swelling Integumentary: ABSENT: rash, wounds Neurological: ABSENT: abnormal gait, abnormal speech, confusion, dizziness, focal weakness, numbness, syncope Psychiatric: ABSENT: anxiety, depression Endocrine: ABSENT: cold intolerance, heat intolerance, polydipsia, polyuria Hematologic/Lymphatic: ABSENT: easy bleeding, easy bruising, lymphadenopathy Physical Exam Vital Signs: Temp Pulse Resp BP Pulse Ox 98.1 F 61 18 150/82 H 100 05/29/19 04:41 05/29/19 04:41 05/29/19 04:41 05/29/19 04:41 05/29/19 04:41 Intake & Output 05/28/19 05/29/19 05/30/19 06:59 06:59 06:59 Intake Total 500 108 Balance 500 108 Weight 68.5 kg Exam: General appearance: No acute distress, cooperative, well-developed, well- nourished Head exam: PRESENT: atraumatic, normocephalic Eye exam: PRESENT: Conjunctiva pale, EOMI, PERRLA. ABSENT: conjunctival injection, scleral icterus Mouth exam: PRESENT: moist, neck supple, tongue midline Neck exam: PRESENT: full ROM. ABSENT: carotid bruit, JVD, lymphadenopathy, thyromegaly Respiratory exam: PRESENT: clear to auscultation bilaterally. ABSENT: rales, rhonchi, stridor, wheezes Cardiovascular exam: PRESENT: RRR, +S1, +S2. ABSENT: systolic murmur Pulses: PRESENT: normal radial pulses, normal dorsalis pedis pulses GI/Abdominal exam: PRESENT: normal bowel sounds, soft. ABSENT: guarding, mass, tenderness Rectal exam: Deferred Extremities exam: PRESENT: full ROM. ABSENT: calf tenderness, pedal edema Musculoskeletal: PRESENT: full ROM. ABSENT: deformity Neurological exam: PRESENT: alert, Awake, Oriented to person, but not to place and time, reflexes normal, CN II-XII grossly intact. ABSENT: motor sensory deficit Psychiatric exam: PRESENT: appropriate affect, normal mood. ABSENT: homicidal ideation, suicidal ideation Skin exam: PRESENT: intact, dry, warm. ABSENT: rash Results Laboratory Results: 05/29/19 06:58 05/29/19 06:58 05/28/19 05/28/19 05/28/19 14:02 14:02 15:25 WBC 11.8 H RBC 4.55 Hgb 12.0 Hct 37.7 MCV 83 MCH 26.3 L MCHC 31.7 L RDW 16.9 H Plt Count 312 Seg Neutrophils % 71.5 Lymphocytes % 19.2 Monocytes % 8.5 Eosinophils % 0.1 Basophils % 0.7 Absolute Neutrophils 8.4 H Absolute Lymphocytes 2.3 Absolute Monocytes 1.0 Absolute Eosinophils 0.0 Absolute Basophils 0.1 Sodium Cancelled Potassium Cancelled Chloride Cancelled Carbon Dioxide Cancelled Anion Gap Cancelled BUN Cancelled Creatinine Cancelled Est GFR ( Amer) Cancelled Est GFR (Non-Af Amer) Cancelled Glucose Cancelled Calcium Cancelled Total Bilirubin Cancelled AST Cancelled ALT Cancelled Alkaline Phosphatase Cancelled Total Protein Cancelled Albumin Cancelled Urine Color DARK YELLOW Urine Appearance CLOUDY Urine pH 5.0 Ur Specific [place] 1.020 Urine Protein >=500 H Urine Glucose (UA) 150 H Urine Ketones NEGATIVE Urine Blood MODERATE H Urine Nitrite NEGATIVE Ur Leukocyte Esterase NEGATIVE Urine WBC (Auto) 6 Urine RBC (Auto) 6 05/28/19 05/29/19 05/29/19 16:00 06:58 06:58 WBC 12.3 H RBC 4.12 Hgb 10.8 L Hct 34.3 L MCV 83 MCH 26.2 L MCHC 31.5 L RDW 17.0 H Plt Count 298 Seg Neutrophils % Lymphocytes % Monocytes % Eosinophils % Basophils % Absolute Neutrophils Absolute Lymphocytes Absolute Monocytes Absolute Eosinophils Absolute Basophils Sodium 140.0 140.5 Potassium 7.3 H* 5.5 H D Chloride 114 H 116 H Carbon Dioxide 15 L 15 L Anion Gap 11 10 BUN 51 H 48 H Creatinine 4.41 H 4.18 H Est GFR ( Amer) 12 L 12 L Est GFR (Non-Af Amer) 10 L 10 L Glucose 157 H 139 H Calcium 9.4 9.0 Total Bilirubin 1.4 H AST 48 H ALT 32 Alkaline Phosphatase 65 Total Protein 7.0 Albumin 3.7 Urine Color Urine Appearance Urine pH Ur Specific [place] Urine Protein Urine Glucose (UA) Urine Ketones Urine Blood Urine Nitrite Ur Leukocyte Esterase Urine WBC (Auto) Urine RBC (Auto) 05/28/19 05/28/19 05/28/19 14:02 14:02 16:00 Creatine Kinase Cancelled 636 H CK-MB (CK-2) 1.33 Troponin I 0.016 Impressions: Chest X-Ray 05/28/19 13:06 IMPRESSION: 1. Focal parenchymal consolidation suggested in the right lower lung zone. Head CT 05/28/19 13:06 IMPRESSION: CHRONIC CHANGES OF ATROPHY AND MICROVASCULAR ISCHEMIA. NO ACUTE PROCESS. EVIDENCE OF ACUTE STROKE: NO. Cervical Spine CT 05/28/19 13:07 IMPRESSION: Multilevel degenerate changes without evidence of acute bony abnormality of the cervical spine. Hip X-Ray 05/28/19 13:07 IMPRESSION: Decreased osseous mineralization without evidence of acute bony abnormality. Evidence of prior femoral neck gaining and left femur intramedullary hardware. Knee X-Ray 05/28/19 13:07 IMPRESSION: No definite acute bony abnormality. Evidence of prior distal femur fracture with dysmorphic appearance and partially visualized intramedullary deb fixation. Lower Extremity CT 05/28/19 14:51 IMPRESSION: 1. No fracture or dislocation of the left tibia or fibula. There is a partially imaged intramedullary nail fixation of the distal left femur. 2. Osteopenia. 3. Moderate tricompartmental arthrosis of the left knee. 4. Small nonspecific knee joint effusion. 5. Diffuse soft tissue swelling about the left lower leg. Assessment & Plan - Diagnosis (1) Acute kidney injury superimposed on chronic kidney disease Is this a current diagnosis for this admission?: Yes Plan: Likely secondary to prerenal factors which could be due to poor oral intake. With improvement of potassium there is really no urgent indication for acute renal replacement therapy. Continue IV fluid hydration and monitoring of kidney function and electrolytes. At any rate the patient confirmed that she does not want any kind of renal replacement therapy at any time. Continue medical management. (2) Acute deep vein thrombosis (DVT) of left lower extremity Is this a current diagnosis for this admission?: Yes Plan: On anticoagulation per hospitalist service. (3) Chronic kidney disease, stage IV (severe) Is this a current diagnosis for this admission?: Yes Plan: Associated with proteinuria likely secondary to diabetic nephropathy with cont ribution of hypertension. (4) Metabolic acidosis Is this a current diagnosis for this admission?: Yes Plan: Non-anion gap secondary to acute kidney injury superimposed with chronic kidney disease. Replace normal saline with bicarbonate drip. (5) Hyperkalemia Is this a current diagnosis for this admission?: Yes Plan: Improved. The bicarbonate drip will help this as well. (6) Proteinuria Is this a current diagnosis for this admission?: Yes (7) DM type 2 (diabetes mellitus, type 2) Qualifiers: Diabetes mellitus detention insulin use: without termite treater helper use Diabetes mellitus complication status: without complication Qualified Code(s): E11.9 - Type 2 diabetes mellitus without complications Is this a current diagnosis for this admission?: Yes (8) HTN (hypertension) Is this a current diagnosis for this admission?: Yes (9) Dementia Is this a current diagnosis for this admission?: Yes - Notes Notes: Thank you very much for this consultation. Discussed with Dr. Lagne. - Time Time Spent: 50 to 70 Minutes
[2019-05-29] MEDS: ATENOLOL 50 MG TABLET PO SCH (22:29)
[2019-05-30] MEDS: MORPHINE SULFATE 10 MG/ML INJ IV PRN ×2 (00:39→12:09)
[2019-05-30 01:05] LABS: APPEARANCE,URINE SLIGHTLY-CLOUDY; BILIRUBIN,URINE NEGATIVE (NEGATIVE); COLOR,URINE YELLOW; GLUCOSE, URINE 150 mg/dL (NEGATIVE); KETONES,URINE NEGATIVE (NEGATIVE); LEUKOCYTE ESTERASE,URINE NEGATIVE (NEGATIVE); NITRITE,URINE NEGATIVE (NEGATIVE); PROTEIN,URINE 100 mg/dL (NEGATIVE); URINE SPECIFIC GRAVITY 1.017; UROBILINOGEN,URINE NEGATIVE mg/dL (<2.0)
[2019-05-30] MEDS: DEXTROSE 5%-WATER 1000 ML 1,000 ML with SODIUM BICARBONATE 150 MEQ IV PRN ×4 (02:34→10:49)
[2019-05-30] MEDS: LEVOTHYROXINE SODIUM 0.1 MG TABLET PO SCH (05:35)
[2019-05-30] MEDS: HEPARIN SODIUM,PORCINE/D5W 25,000 UNIT/250 ML RTUINJ IV PRN (07:06)
[2019-05-30 07:30] LABS: ANION GAP 8 (5-19); BLOOD UREA NITROGEN 44 mg/dL (7-20); CALCIUM 7.7 mg/dL (8.4-10.2); CARBON DIOXIDE 22 mmol/L (22-30); CHLORIDE 108 mmol/L (98-107); GLUCOSE 217 mg/dL (75-110)
[2019-05-30 07:40] LABS: POTASSIUM 4.3 mmol/L (3.6-5.0)
[2019-05-30] MEDS: INSULIN LISPRO 100 UNIT/ML 3 ML VIAL SUBCUT SCH ×4 (08:05→21:27)
[2019-05-30 09:30] LABS: ABSOLUTE BASOPHILS # (AUTO) 0.1 10^3/uL (0.0-0.2); ABSOLUTE EOSINOPHILS # (AUTO) 0.3 10^3/uL (0.0-0.6); ABSOLUTE LYMPHOCYTES (AUTO) 2.4 10^3/uL (0.5-4.7); ABSOLUTE MONOCYTES (AUTO) 0.9 10^3/uL (0.1-1.4); ABSOLUTE NEUT (AUTO) 5.9 10^3/uL (1.7-8.2); BASOPHILS % (AUTO) 0.6 % (0-2); EOSINOPHILS % (AUTO) 3.5 % (0-6); HEMATOCRIT 28.4 % (36.0-47.0); HEMOGLOBIN 9.3 g/dL (12.0-15.5); LYMPHOCYTES % (AUTO) 24.9 % (13-45); MEAN CORPUSCULAR HGB CONC 32.7 g/dL (32.0-36.0); MEAN CORPUSCULAR VOLUME 83 fl (80-97); MONOCYTES % (AUTO) 9.5 % (3-13); PLATELET COUNT 269 10^3/uL (150-450); RED BLOOD COUNT 3.43 10^6/uL (3.72-5.28); RED CELL DISTRIBUTION WIDTH 17.1 % (11.5-14.0); SEGMENTED NEUTROPHILS % (AUTO) 61.5 % (42-78); TOTAL CELLS COUNTED % (AUTO) 100 %; WHITE BLOOD COUNT 9.6 10^3/uL (4.0-10.5)
[2019-05-30] MEDS: ATENOLOL 50 MG TABLET PO SCH ×2 (09:30→21:26)
[2019-05-30] MEDS: LIDOCAINE 5% (700 MG) TRANSDERMAL ADH..PATCH TOP SCH ×2 (09:31→15:49)
[2019-05-30] MEDS: NIFEDIPINE 30 MG TAB.ER.24 PO SCH (09:31)
--- NOTE | 2019-05-30 16:24 | PDOC PROGRESS REPORT ---
Subjective Progress Note for:: 05/30/19 Subjective:: SUN REMY is a 83 year old female with a PMH of dementia, HTN, CKD 4, NIDDM type 2, COPD not on home O2, history of DEMIAN and B12 deficiency, hypothyroidism and history of GI bleed from a diverticular bleed who was brought in due to left leg swelling. He was found to have an acute left lower extremity DVT and was also noted to be in acute renal failure with severe hyperkalemia. 05/29: She remains cheerful and comfortable this morning. She did complain of pain when left leg was moved. Left lower extremity still appears swollen but does not appear to be worse from yesterday. No discoloration. She denies chest pain or shortness of breath. 05/30: No acute event overnight. She denies acute complaints. Creatinine continue to improve and is down to 3.2 from 4.1 yesterday. No worsening or discoloration of the left leg. Reason For Visit: EXTENSIVE DVT,ACUTE RENAL FAILURE,HYPERKALEMIA Physical Exam Vital Signs: Temp Pulse Resp BP Pulse Ox 98.1 F 74 18 116/53 L 100 05/30/19 12:43 05/30/19 14:00 05/30/19 12:43 05/30/19 12:43 05/30/19 12:43 Intake & Output 05/29/19 05/30/19 05/31/19 06:59 06:59 06:59 Intake Total 500 3000 1117 Output Total 450 Balance 500 2550 1117 Weight 151 lb 0.266 oz 150 lb 5.684 oz General appearance: PRESENT: no acute distress, well-developed, well-nourished Head exam: PRESENT: atraumatic, normocephalic Eye exam: PRESENT: conjunctiva pink, EOMI, PERRLA. ABSENT: scleral icterus Ear exam: PRESENT: normal external ear exam Mouth exam: PRESENT: moist, tongue midline Neck exam: ABSENT: carotid bruit, JVD, lymphadenopathy, thyromegaly Respiratory exam: PRESENT: clear to auscultation mychal. ABSENT: rales, rhonchi, w heezes Cardiovascular exam: PRESENT: RRR. ABSENT: diastolic murmur, rubs, systolic murmur Pulses: PRESENT: normal dorsalis pedis pul GI/Abdominal exam: PRESENT: normal bowel sounds, soft. ABSENT: distended, guarding, mass, organolmegaly, rebound, tenderness Rectal exam: PRESENT: deferred Extremities exam: PRESENT: full ROM, +2 edema - left LE. ABSENT: calf tenderness, clubbing Neurological exam: PRESENT: alert, awake, oriented to person, oriented to place, oriented to time, oriented to situation, CN II-XII grossly intact. ABSENT: motor sensory deficit Results Laboratory Results: 05/30/19 06:29 05/30/19 06:29 05/30/19 05/30/19 05/30/19 00:43 06:29 06:29 WBC 9.6 RBC 3.43 L Hgb 9.3 L Hct 28.4 L MCV 83 MCH 27.0 MCHC 32.7 RDW 17.1 H Plt Count 269 Seg Neutrophils % 61.5 Lymphocytes % 24.9 Monocytes % 9.5 Eosinophils % 3.5 Basophils % 0.6 Absolute Neutrophils 5.9 Absolute Lymphocytes 2.4 Absolute Monocytes 0.9 Absolute Eosinophils 0.3 Absolute Basophils 0.1 Sodium 137.5 Potassium 4.3 D Chloride 108 H Carbon Dioxide 22 Anion Gap 8 BUN 44 H Creatinine 3.25 H Est GFR ( Amer) 17 L Est GFR (Non-Af Amer) 14 L Glucose 217 H Calcium 7.7 L Urine Color YELLOW Urine Appearance SLIGHTLY-CLOUDY Urine pH 5.0 Ur Specific [place] 1.017 Urine Protein 100 H Urine Glucose (UA) 150 H Urine Ketones NEGATIVE Urine Blood MODERATE H Urine Nitrite NEGATIVE Ur Leukocyte Esterase NEGATIVE Urine WBC (Auto) 3 Urine RBC (Auto) 6 05/28/19 05/28/19 05/28/19 14:02 14:02 16:00 Creatine Kinase Cancelled 636 H CK-MB (CK-2) 1.33 Troponin I 0.016 Impressions: Chest X-Ray 05/28/19 13:06 IMPRESSION: 1. Focal parenchymal consolidation suggested in the right lower lung zone. Head CT 05/28/19 13:06 IMPRESSION: CHRONIC CHANGES OF ATROPHY AND MICROVASCULAR ISCHEMIA. NO ACUTE PROCESS. EVIDENCE OF ACUTE STROKE: NO. Cervical Spine CT 05/28/19 13:07 IMPRESSION: Multilevel degenerate changes without evidence of acute bony abnormality of the cervical spine. Hip X-Ray 05/28/19 13:07 IMPRESSION: Decreased osseous mineralization without evidence of acute bony abnormality. Evidence of prior femoral neck gaining and left femur intramedullary hardware. Lower Extremity CT 05/28/19 14:51 IMPRESSION: 1. No fracture or dislocation of the left tibia or fibula. There is a partially imaged intramedullary nail fixation of the distal left femur. 2. Osteopenia. 3. Moderate tricompartmental arthrosis of the left knee. 4. Small nonspecific knee joint effusion. 5. Diffuse soft tissue swelling about the left lower leg. Knee X-Ray 05/29/19 00:00 IMPRESSION: Osteoarthritis Trace suprapatellar knee joint effusion No gross acute displaced fracture Assessment and Plan - Diagnosis (1) Acute deep vein thrombosis (DVT) of left lower extremity Is this a current diagnosis for this admission?: Yes Plan: Continue heparin drip. No signs of bleeding. Plan to start coumadin vs a NOAC if creatinine continue to improve significantly in the next 24-48 hrs. (2) Acute on chronic renal failure Is this a current diagnosis for this admission?: Yes Plan: P creatinine has slightly trended down from 4.4-4.1. [place] was a known CKD for patient. Patient is making adequate urine at the moment. Will start IV fluids. As mentioned, family expressed that she has previously made the decision not to be initiated and dialysis if she progresses to ESRD. 05/29: Creatinine has trended down slightly from 4.4-4.1. Potassium down to 5.5 from 7.3. Appreciate nephrology input. 05/30: Creatinine improved to 3.2. (3) DM type 2 (diabetes mellitus, type 2) Qualifiers: Diabetes mellitus termite control technician insulin use: without custodial use Diabetes mellitus complication status: without complication Qualified Code(s): E11.9 - Type 2 diabetes mellitus without complications Is this a current diagnosis for this admission?: Yes Plan: Sliding scale for now. (4) Hyperkalemia Is this a current diagnosis for this admission?: Yes Plan: Patient does take potassium supplements at home. She got insulin, glucose and calcium regimen and Kayexalate in the ER. 05/29: Improved. Potassium down to 5.5 from 7.3. 05/30: Resolved. - Time Time Spent with patient: 25-34 minutes
--- NOTE | 2019-05-30 18:00 | PDOC CONSULTATION ---
Consultation Consult Date: 05/30/19 Provider Consulted: DEBRA CHOI Consult reason:: Hematology/ncology consultation was requested for patient with iron deficiency anemia and new DVT. History of Present Illness Admission Date/PCP: 05/28/19 17:06 DONATO KIM MD History of Present Illness: SUN REMY is a 83 year old female who is followed by the undersigned for iron deficiency anemia. She received IV iron beginning Nov 2017. She was also started on B12 injections at that time. Patient's daughter states that 3 days prior to admission, she began complaining of left leg pain. She would not transfer on her own as she previously did. The day before admission, she fell and the following morning, she was found to have marked swelling in the LLE. She was evaluated in the ED and found to have DVT LLE, but no evidence of fractures. Today, patient is asleep. Her Daughter and primary caregiver is at bedside. She states that she has been very confused and tired, especially as the day progresses. She denies any pain today. No change in breathing or bowels. Past Medical History Cardiac Medical History: Reports: Hyperlipidema, Hypertension Pulmonary Medical History: Reports: Chronic Obstructive Pulmonary Disease (COPD) Neurological Medical History: Denies: Seizures Endocrine Medical History: Reports: Diabetes Mellitus Type 2, Hypothyroidism Renal/ Medical History: Reports: Nephrolithiasis GI Medical History: Reports: Gastroesophageal Reflux Disease Musculoskeltal Medical History: Reports: Arthritis, Other - Osteoporosis, low back pain, left hip/femoral fracture, Psychiatric Medical History: Reports: Dementia Past Surgical History Past Surgical History: Reports: Appendectomy, Cholecystectomy, Hysterectomy, Or thopedic Surgery - left femur, hip surgery left knee, Tubal Ligation Social History Information Source: Outside Facility Records Occupation: , retired. Lives with daughter. 3 kids. Lives with: Family Smoking Status: Never Smoker Frequency of Alcohol Use: None Hx Recreational Drug Use: No Hx Prescription Drug Abuse: No - Advance Directive Resuscitation Status: Do Not Resuscitate Family History Parental Family History Reviewed: Yes - Mother age 70 CAD. Father age 58 CAD. Children Family History Reviewed: Yes - Grandson age 23 sudden . Sibling(s) Family History Reviewed.: Yes - Brother age 67. Medication/Allergy Home Medications: Atenolol [Tenormin 50 mg Tablet] 50 mg PO BID 05/28/19 Atorvastatin Calcium [Lipitor 40 mg Tablet] 40 mg PO QHS 05/28/19 Calcitriol [Rocaltrol 0.25 mcg Capsule] 0.25 mcg PO MOWEFR@1000 05/28/19 Docusate Sodium [Colace 100 mg Capsule] 100 mg PO BID 05/28/19 Ergocalciferol (Vitamin D2) [Drisdol 50,000 unit (1.25MG) Capsule] 50,000 unit PO HOYOS@1000 05/28/19 Esomeprazole Magnesium [Nexium] 20 mg PO DAILY 05/28/19 Fenofibrate [Fenoglide] 54 mg PO QHS 05/28/19 Ferrous Sulfate [Feosol 325 mg Tablet] 325 mg PO DAILY 05/28/19 Levocetirizine Dihydrochloride [Xyzal] 5 mg PO QHS 05/28/19 Levothyroxine Sodium [Synthroid 0.1 mg Tablet] 0.1 mg PO Q6AM 05/28/19 Lidocaine [Lidoderm 5% (700 mg) Transdermal Patch] 1 patch TOP DAILY 05/28/19 Losartan Potassium [Cozaar 50 mg Tablet] 50 mg PO DAILY 05/28/19 Megestrol Acetate 10 ml PO DAILY 05/28/19 Nifedipine [Procardia XL 30 mg Tablet] 30 mg PO DAILY 05/28/19 Potassium Chloride [Klor-Con M20] 20 meq PO DAILY 05/28/19 Sitagliptin Phosphate [Januvia 50 mg Tablet] 50 mg PO DAILY 05/28/19 Allergies/Adverse Reactions: levofloxacin [From Levaquin] Allergy (Verified 05/28/19 12:35) Penicillins Allergy (Verified 05/28/19 12:34) Anaphylaxis tramadol Allergy (Verified 05/28/19 12:34) Hives Review of Systems ROS unobtainable: Due to mental status Physical Exam Vital Signs: Temp Pulse Resp BP Pulse Ox 98.1 F 74 18 116/53 L 100 05/30/19 12:43 05/30/19 14:00 05/30/19 12:43 05/30/19 12:43 05/30/19 12:43 Intake & Output 05/29/19 05/30/19 05/31/19 06:59 06:59 06:59 Intake Total 500 3000 1117 Output Total 450 Balance 500 2550 1117 Weight 68.5 kg 68.2 kg General appearance: PRESENT: no acute distress, well-developed, well-nourished Head exam: PRESENT: normocephalic Mouth exam: PRESENT: moist Teeth exam: PRESENT: edentulous Neck exam: ABSENT: lymphadenopathy, tenderness Respiratory exam: PRESENT: clear to auscultation mychal, unlabored Cardiovascular exam: PRESENT: RRR GI/Abdominal exam: PRESENT: soft. ABSENT: tenderness Extremities exam: PRESENT: other - Left lower extremity 3+ edema all the way up. Musculoskeletal exam: PRESENT: tenderness Neurological exam: PRESENT: other - Sleeping peacefully. Skin exam: PRESENT: normal color Results Laboratory Results: 05/30/19 06:29 05/30/19 06:29 05/30/19 05/30/19 05/30/19 00:43 06:29 06:29 WBC 9.6 RBC 3.43 L Hgb 9.3 L Hct 28.4 L MCV 83 MCH 27.0 MCHC 32.7 RDW 17.1 H Plt Count 269 Seg Neutrophils % 61.5 Lymphocytes % 24.9 Monocytes % 9.5 Eosinophils % 3.5 Basophils % 0.6 Absolute Neutrophils 5.9 Absolute Lymphocytes 2.4 Absolute Monocytes 0.9 Absolute Eosinophils 0.3 Absolute Basophils 0.1 Sodium 137.5 Potassium 4.3 D Chloride 108 H Carbon Dioxide 22 Anion Gap 8 BUN 44 H Creatinine 3.25 H Est GFR ( Amer) 17 L Est GFR (Non-Af Amer) 14 L Glucose 217 H Calcium 7.7 L Urine Color YELLOW Urine Appearance SLIGHTLY-CLOUDY Urine pH 5.0 Ur Specific [place] 1.017 Urine Protein 100 H Urine Glucose (UA) 150 H Urine Ketones NEGATIVE Urine Blood MODERATE H Urine Nitrite NEGATIVE Ur Leukocyte Esterase NEGATIVE Urine WBC (Auto) 3 Urine RBC (Auto) 6 05/28/19 05/28/19 05/28/19 14:02 14:02 16:00 Creatine Kinase Cancelled 636 H CK-MB (CK-2) 1.33 Troponin I 0.016 Impressions: Chest X-Ray 05/28/19 13:06 IMPRESSION: 1. Focal parenchymal consolidation suggested in the right lower lung zone. Head CT 05/28/19 13:06 IMPRESSION: CHRONIC CHANGES OF ATROPHY AND MICROVASCULAR ISCHEMIA. NO ACUTE PROCESS. EVIDENCE OF ACUTE STROKE: NO. Cervical Spine CT 05/28/19 13:07 IMPRESSION: Multilevel degenerate changes without evidence of acute bony abnormality of the cervical spine. Hip X-Ray 05/28/19 13:07 IMPRESSION: Decreased osseous mineralization without evidence of acute bony abnormality. Evidence of prior femoral neck gaining and left femur intramedullary hardware. Lower Extremity CT 05/28/19 14:51 IMPRESSION: 1. No fracture or dislocation of the left tibia or fibula. There is a partially imaged intramedullary nail fixation of the distal left femur. 2. Osteopenia. 3. Moderate tricompartmental arthrosis of the left knee. 4. Small nonspecific knee joint effusion. 5. Diffuse soft tissue swelling about the left lower leg. Knee X-Ray 05/29/19 00:00 IMPRESSION: Osteoarthritis Trace suprapatellar knee joint effusion No gross acute displaced fracture Assessment & Plan - Diagnosis (1) Anemia Qualifiers: Anemia type: iron deficiency Is this a current diagnosis for this admission?: Yes Plan: And B12 deficiency. HGB currently decreasing, but this may be dilutional. Will continue to monitor and consider blood transfusions if appropriate. (2) Acute deep vein thrombosis (DVT) of left lower extremity Qualifiers: Affected thrombotic vein of extremity: unspecified lower extremity distal vein Qualified Code(s): I82.4Z2 - Acute embolism and thrombosis of unspecified deep veins of left distal lower extremity Is this a current diagnosis for this admission?: Yes Plan: Continue IV heparin for now. If Cr does not improve significantly, will need to transition to warfarin. However, if Cr improves, then consider a newer oral agent. (3) Chronic kidney disease, stage IV (severe) Is this a current diagnosis for this admission?: Yes Plan: Hopefully, Cr will improve some. - Plan Summary Plan Summary: Than you for this consult. I will be happy to follow with you.
--- NOTE | 2019-05-30 19:34 | PDOC PROGRESS REPORT ---
Subjective Progress Note for:: 05/30/19 Subjective:: Patient is sleepy today. She did not verbalize any complaints. Her daughter at the bedside. Daughter confirmed that the patient does not want any dialysis. Patient still on heparin drip. Reason For Visit: EXTENSIVE DVT,ACUTE RENAL FAILURE,HYPERKALEMIA Physical Exam Vital Signs: Temp Pulse Resp BP Pulse Ox 98.1 F 66 18 106/53 L 98 05/30/19 15:41 05/30/19 15:41 05/30/19 15:41 05/30/19 15:41 05/30/19 15:41 Intake & Output 05/29/19 05/30/19 05/31/19 06:59 06:59 06:59 Intake Total 500 3000 1757 Output Total 450 Balance 500 2550 1757 Weight 68.5 kg 68.2 kg Exam: General appearance: PRESENT: no acute distress, cooperative, fairly-developed, fairly-nourished Head exam: PRESENT: atraumatic, normocephalic Eye exam: PRESENT: conjunctiva pale, PERRLA. ABSENT: scleral icterus Neck exam: ABSENT: JVD Respiratory exam: PRESENT: Diminished breath sounds. ABSENT: crackles, rales, rhonchi, unlabored, wheezes Cardiovascular exam: PRESENT: Regular rate rhythm -+S1, +S2. ABSENT: diastolic murmur, systolic murmur GI/Abdominal exam: PRESENT: normal bowel sounds, soft. ABSENT: guarding, mass, tenderness Extremities exam: Bilateral grade 1 lower extremity pitting edema more on the left side with a DVT compared to the right side. Neurological exam: PRESENT: Sleepy but arousable. Skin exam: PRESENT: dry, warm, Results Laboratory Results: 05/30/19 06:29 05/30/19 06:29 05/30/19 05/30/19 05/30/19 00:43 06:29 06:29 WBC 9.6 RBC 3.43 L Hgb 9.3 L Hct 28.4 L MCV 83 MCH 27.0 MCHC 32.7 RDW 17.1 H Plt Count 269 Seg Neutrophils % 61.5 Lymphocytes % 24.9 Monocytes % 9.5 Eosinophils % 3.5 Basophils % 0.6 Absolute Neutrophils 5.9 Absolute Lymphocytes 2.4 Absolute Monocytes 0.9 Absolute Eosinophils 0.3 Absolute Basophils 0.1 Sodium 137.5 Potassium 4.3 D Chloride 108 H Carbon Dioxide 22 Anion Gap 8 BUN 44 H Creatinine 3.25 H Est GFR ( Amer) 17 L Est GFR (Non-Af Amer) 14 L Glucose 217 H Calcium 7.7 L Urine Color YELLOW Urine Appearance SLIGHTLY-CLOUDY Urine pH 5.0 Ur Specific [place] 1.017 Urine Protein 100 H Urine Glucose (UA) 150 H Urine Ketones NEGATIVE Urine Blood MODERATE H Urine Nitrite NEGATIVE Ur Leukocyte Esterase NEGATIVE Urine WBC (Auto) 3 Urine RBC (Auto) 6 05/28/19 05/28/19 05/28/19 14:02 14:02 16:00 Creatine Kinase Cancelled 636 H CK-MB (CK-2) 1.33 Troponin I 0.016 Impressions: Chest X-Ray 05/28/19 13:06 IMPRESSION: 1. Focal parenchymal consolidation suggested in the right lower lung zone. Head CT 05/28/19 13:06 IMPRESSION: CHRONIC CHANGES OF ATROPHY AND MICROVASCULAR ISCHEMIA. NO ACUTE PROCESS. EVIDENCE OF ACUTE STROKE: NO. Cervical Spine CT 05/28/19 13:07 IMPRESSION: Multilevel degenerate changes without evidence of acute bony abnormality of the cervical spine. Hip X-Ray 05/28/19 13:07 IMPRESSION: Decreased osseous mineralization without evidence of acute bony abnormality. Evidence of prior femoral neck gaining and left femur intramedullary hardware. Lower Extremity CT 05/28/19 14:51 IMPRESSION: 1. No fracture or dislocation of the left tibia or fibula. There is a partially imaged intramedullary nail fixation of the distal left femur. 2. Osteopenia. 3. Moderate tricompartmental arthrosis of the left knee. 4. Small nonspecific knee joint effusion. 5. Diffuse soft tissue swelling about the left lower leg. Knee X-Ray 05/29/19 00:00 IMPRESSION: Osteoarthritis Trace suprapatellar knee joint effusion No gross acute displaced fracture Assessment & Plan - Diagnosis (1) Acute kidney injury superimposed on chronic kidney disease Is this a current diagnosis for this admission?: Yes Plan: Kidney function is improving with IV fluid hydration. Patient does not want any dialysis treatment. Continue current medical management. (2) Acute deep vein thrombosis (DVT) of left lower extremity Qualifiers: Affected thrombotic vein of extremity: unspecified lower extremity distal vein Qualified Code(s): I82.4Z2 - Acute embolism and thrombosis of unspecified deep veins of left distal lower extremity Is this a current diagnosis for this admission?: Yes Plan: Patient on heparin drip. Defer to the hospitalist service. (3) Chronic kidney disease, stage IV (severe) Is this a current diagnosis for this admission?: Yes (4) Metabolic acidosis Is this a current diagnosis for this admission?: Yes Plan: Resolved. Discontinue bicarb drip and replace with normal saline at 75 mL an hour for maintenance. (5) Hyperkalemia Is this a current diagnosis for this admission?: Yes Plan: Resolved. (6) Proteinuria Is this a current diagnosis for this admission?: Yes (7) DM type 2 (diabetes mellitus, type 2) Qualifiers: Diabetes mellitus senior care insulin use: without senior care use Diabetes mellitus complication status: without complication Qualified Code(s): E11.9 - Type 2 diabetes mellitus without complications Is this a current diagnosis for this admission?: Yes (8) HTN (hypertension) Is this a current diagnosis for this admission?: Yes (9) Dementia Is this a current diagnosis for this admission?: Yes - Time Time with patient: 15-25 minutes
[2019-05-30] MEDS: NORMAL SALINE 1000 ML 1,000 ML IV PRN (20:38)
[2019-05-31 04:59] LABS: ABSOLUTE RETICS # 0.071 10^6/uL (0.028-0.122); HEMATOCRIT 28.1 % (36.0-47.0); HEMOGLOBIN 9.4 g/dL (12.0-15.5); MEAN CORPUSCULAR HGB CONC 33.3 g/dL (32.0-36.0); MEAN CORPUSCULAR VOLUME 81 fl (80-97); PLATELET COUNT 273 10^3/uL (150-450); RED BLOOD COUNT 3.48 10^6/uL (3.72-5.28); RETICULOCYTE COUNT (AUTO) 2.04 % (0.66-2.85); WHITE BLOOD COUNT 9.1 10^3/uL (4.0-10.5)
[2019-05-31 05:23] LABS: BLOOD UREA NITROGEN 43 mg/dL (7-20); CALCIUM 7.4 mg/dL (8.4-10.2); GLUCOSE 127 mg/dL (75-110); IRON(TIBC) 32.1 ug/dL (37-170); POTASSIUM 4.4 mmol/L (3.6-5.0)
[2019-05-31 05:29] LABS: CARBON DIOXIDE 26 mmol/L (22-30); CHLORIDE 104 mmol/L (98-107)
[2019-05-31] MEDS: LEVOTHYROXINE SODIUM 0.1 MG TABLET PO SCH (06:18)
[2019-05-31 06:29] LABS: FOLATE 4.76 ng/mL (>2.76)
[2019-05-31 06:33] LABS: ANION GAP 6 (5-19)
[2019-05-31] MEDS: INSULIN LISPRO 100 UNIT/ML 3 ML VIAL SUBCUT SCH ×4 (08:37→21:29)
--- NOTE | 2019-05-31 08:49 | PDOC PROGRESS REPORT ---
Subjective Progress Note for:: 05/31/19 Subjective:: Patient sitting up in bed eating breakfast this morning. No family available currently. She states that her left leg is still hurting, but not in the hip area. Otherwise, no complaints. Reason For Visit: EXTENSIVE DVT,ACUTE RENAL FAILURE,HYPERKALEMIA Physical Exam Vital Signs: Temp Pulse Resp BP Pulse Ox 98.6 F 67 16 130/46 H 93 05/31/19 07:47 05/31/19 07:47 05/31/19 07:47 05/31/19 07:47 05/31/19 07:47 Intake & Output 05/30/19 05/31/19 06/01/19 06:59 06:59 06:59 Intake Total 3000 2159 Output Total 450 100 Balance 2550 2059 Weight 68.2 kg 68.2 kg General appearance: PRESENT: well-developed, well-nourished Head exam: PRESENT: normocephalic Extremities exam: PRESENT: other - Unchanged from yesterday. Neurological exam: PRESENT: alert, awake Psychiatric exam: PRESENT: appropriate affect Skin exam: PRESENT: normal color Results Laboratory Results: 05/31/19 04:27 05/31/19 04:27 05/30/19 05/31/19 05/31/19 06:29 04:27 04:27 WBC 9.6 9.1 RBC 3.43 L 3.48 L Hgb 9.3 L 9.4 L Hct 28.4 L 28.1 L MCV 83 81 MCH 27.0 27.0 MCHC 32.7 33.3 RDW 17.1 H 17.0 H Plt Count 269 273 Seg Neutrophils % 61.5 Lymphocytes % 24.9 Monocytes % 9.5 Eosinophils % 3.5 Basophils % 0.6 Absolute Neutrophils 5.9 Absolute Lymphocytes 2.4 Absolute Monocytes 0.9 Absolute Eosinophils 0.3 Absolute Basophils 0.1 Retic Count (auto) 2.04 Absolute Retic 0.071 Sodium 136.1 L Potassium 4.4 Chloride 104 Carbon Dioxide 26 Anion Gap 6 BUN 43 H Creatinine 3.01 H Est GFR ( Amer) 18 L Est GFR (Non-Af Amer) 15 L Glucose 127 H Calcium 7.4 L Iron 32.1 L TIBC 276 % Saturation 12 Ferritin 99.90 Vitamin B12 501.0 Folate 4.76 05/28/19 05/28/19 05/28/19 14:02 14:02 16:00 Creatine Kinase Cancelled 636 H CK-MB (CK-2) 1.33 Troponin I 0.016 Impressions: Chest X-Ray 05/28/19 13:06 IMPRESSION: 1. Focal parenchymal consolidation suggested in the right lower lung zone. Head CT 05/28/19 13:06 IMPRESSION: CHRONIC CHANGES OF ATROPHY AND MICROVASCULAR ISCHEMIA. NO ACUTE PROCESS. EVIDENCE OF ACUTE STROKE: NO. Cervical Spine CT 05/28/19 13:07 IMPRESSION: Multilevel degenerate changes without evidence of acute bony abnormality of the cervical spine. Hip X-Ray 05/28/19 13:07 IMPRESSION: Decreased osseous mineralization without evidence of acute bony abnormality. Evidence of prior femoral neck gaining and left femur intramedullary hardware. Lower Extremity CT 05/28/19 14:51 IMPRESSION: 1. No fracture or dislocation of the left tibia or fibula. There is a partially imaged intramedullary nail fixation of the distal left femur. 2. Osteopenia. 3. Moderate tricompartmental arthrosis of the left knee. 4. Small nonspecific knee joint effusion. 5. Diffuse soft tissue swelling about the left lower leg. Knee X-Ray 05/29/19 00:00 IMPRESSION: Osteoarthritis Trace suprapatellar knee joint effusion No gross acute displaced fracture Assessment & Plan - Diagnosis (1) Anemia Qualifiers: Anemia type: iron deficiency Is this a current diagnosis for this admission?: Yes Plan: Currently stable. (2) Acute deep vein thrombosis (DVT) of left lower extremity Qualifiers: Affected thrombotic vein of extremity: unspecified lower extremity distal vein Qualified Code(s): I82.4Z2 - Acute embolism and thrombosis of unspecified deep veins of left distal lower extremity Is this a current diagnosis for this admission?: Yes Plan: I do not believe that her kidney function will improve enough to start Lovenox or a newer PO agent, based on her baseline Cr. I would go ahead and start warfarin and continue IV heparin until INR is >2. I have discussed this with Dr. Lange. (3) Chronic kidney disease, stage IV (severe) Is this a current diagnosis for this admission?: Yes - Plan Summary Plan Summary: Please call if needed.
[2019-05-31] MEDS: NORMAL SALINE 1000 ML 1,000 ML IV PRN (10:13)
--- NOTE | 2019-05-31 10:13 | PDOC PROGRESS REPORT ---
Subjective Progress Note for:: 05/31/19 Subjective:: Today the patient is awake and lively. She does still appears to be confused likely due to dementia. Her daughter and other family members at bedside. She does not have any complaints. Her urine output was only recorded at 100 mL which I doubt since she has a Gibbs catheter. Reason For Visit: EXTENSIVE DVT,ACUTE RENAL FAILURE,HYPERKALEMIA Physical Exam Vital Signs: Temp Pulse Resp BP Pulse Ox 98.6 F 67 16 130/46 H 93 05/31/19 07:47 05/31/19 07:47 05/31/19 07:47 05/31/19 07:47 05/31/19 07:47 Intake & Output 05/30/19 05/31/19 06/01/19 06:59 06:59 06:59 Intake Total 3000 2159 Output Total 450 100 Balance 2550 2059 Weight 68.2 kg 68.2 kg Exam: General appearance: PRESENT: no acute distress, cooperative, well-developed, well-nourished Head exam: PRESENT: atraumatic, normocephalic Eye exam: PRESENT: conjunctiva slightly pale, PERRLA. ABSENT: scleral icterus Neck exam: ABSENT: JVD Respiratory exam: PRESENT: Diminished breath sounds. ABSENT: crackles, rales, rhonchi, unlabored, wheezes Cardiovascular exam: PRESENT: Regular rate rhythm -+S1, +S2. ABSENT: diastolic murmur, systolic murmur GI/Abdominal exam: PRESENT: normal bowel sounds, soft. ABSENT: guarding, mass, tenderness Extremities exam: Unchanged grade 2 bilateral lower extremity pitting edema, left greater than the right Neurological exam: PRESENT: alert, awake, oriented to person, place and time. Skin exam: PRESENT: dry, warm, Results Laboratory Results: 05/31/19 04:27 05/31/19 04:27 05/31/19 05/31/19 04:27 04:27 WBC 9.1 RBC 3.48 L Hgb 9.4 L Hct 28.1 L MCV 81 MCH 27.0 MCHC 33.3 RDW 17.0 H Plt Count 273 Retic Count (auto) 2.04 Absolute Retic 0.071 Sodium 136.1 L Potassium 4.4 Chloride 104 Carbon Dioxide 26 Anion Gap 6 BUN 43 H Creatinine 3.01 H Est GFR ( Amer) 18 L Est GFR (Non-Af Amer) 15 L Glucose 127 H Calcium 7.4 L Iron 32.1 L TIBC 276 % Saturation 12 Ferritin 99.90 Vitamin B12 501.0 Folate 4.76 05/28/19 05/28/19 05/28/19 14:02 14:02 16:00 Creatine Kinase Cancelled 636 H CK-MB (CK-2) 1.33 Troponin I 0.016 Impressions: Chest X-Ray 05/28/19 13:06 IMPRESSION: 1. Focal parenchymal consolidation suggested in the right lower lung zone. Head CT 05/28/19 13:06 IMPRESSION: CHRONIC CHANGES OF ATROPHY AND MICROVASCULAR ISCHEMIA. NO ACUTE PROCESS. EVIDENCE OF ACUTE STROKE: NO. Cervical Spine CT 05/28/19 13:07 IMPRESSION: Multilevel degenerate changes without evidence of acute bony abnormality of the cervical spine. Hip X-Ray 05/28/19 13:07 IMPRESSION: Decreased osseous mineralization without evidence of acute bony abnormality. Evidence of prior femoral neck gaining and left femur intramedullary hardware. Lower Extremity CT 05/28/19 14:51 IMPRESSION: 1. No fracture or dislocation of the left tibia or fibula. There is a partially imaged intramedullary nail fixation of the distal left femur. 2. Osteopenia. 3. Moderate tricompartmental arthrosis of the left knee. 4. Small nonspecific knee joint effusion. 5. Diffuse soft tissue swelling about the left lower leg. Knee X-Ray 05/29/19 00:00 IMPRESSION: Osteoarthritis Trace suprapatellar knee joint effusion No gross acute displaced fracture Assessment & Plan - Diagnosis (1) Acute kidney injury superimposed on chronic kidney disease Is this a current diagnosis for this admission?: Yes Plan: Kidney function is improving with IV fluid hydration. Patient does not want any dialysis treatment. Continue current medical management. (2) Acute deep vein thrombosis (DVT) of left lower extremity Qualifiers: Affected thrombotic vein of extremity: unspecified lower extremity distal vein Qualified Code(s): I82.4Z2 - Acute embolism and thrombosis of unspecified deep veins of left distal lower extremity Is this a current diagnosis for this admission?: Yes Plan: Patient on heparin drip. Defer to the hospitalist service. Since the patient has an extensive left leg DVT I would recommend warfarin compared to the other newer oral anticoagulants so that the treatment efficacy can be more adequately monitored toward. However due to the patient's age and comorbidities I think the family should be cautioned regarding the risk of bleeding and avoid falling. (3) Chronic kidney disease, stage IV (severe) Is this a current diagnosis for this admission?: Yes (4) Metabolic acidosis Is this a current diagnosis for this admission?: Yes Plan: Resolved. Discontinue bicarb drip and replace with normal saline at 75 mL an hour for maintenance. (5) Hyperkalemia Is this a current diagnosis for this admission?: Yes Plan: Resolved. (6) Proteinuria Is this a current diagnosis for this admission?: Yes (7) DM type 2 (diabetes mellitus, type 2) Qualifiers: Diabetes mellitus mcc insulin use: without mcc use Diabetes mellitus complication status: without complication Qualified Code(s): E11.9 - Type 2 diabetes mellitus without complications Is this a current diagnosis for this admission?: Yes (8) HTN (hypertension) Is this a current diagnosis for this admission?: Yes (9) Dementia Is this a current diagnosis for this admission?: Yes - Time Time with patient: 15-25 minutes
[2019-05-31] MEDS: LIDOCAINE 5% (700 MG) TRANSDERMAL ADH..PATCH TOP SCH (11:10)
[2019-05-31] MEDS: NIFEDIPINE 30 MG TAB.ER.24 PO SCH (11:10)
[2019-05-31] MEDS: MORPHINE SULFATE 10 MG/ML INJ IV PRN (11:10)
[2019-05-31] MEDS: ATENOLOL 50 MG TABLET PO SCH ×2 (11:10→21:29)
[2019-05-31 11:44] LABS: HEMATOCRIT 28.8 % (36.0-47.0); HEMOGLOBIN 9.5 g/dL (12.0-15.5); MEAN CORPUSCULAR HEMOGLOBIN 26.8 pg (27.0-33.4); MEAN CORPUSCULAR HGB CONC 32.9 g/dL (32.0-36.0); MEAN CORPUSCULAR VOLUME 81 fl (80-97); PLATELET COUNT 305 10^3/uL (150-450); RED BLOOD COUNT 3.54 10^6/uL (3.72-5.28); RED CELL DISTRIBUTION WIDTH 17.3 % (11.5-14.0); WHITE BLOOD COUNT 8.7 10^3/uL (4.0-10.5)
[2019-05-31 11:47] LABS: PROTHROMBIN TIME 14.2 SEC (11.4-15.4)
[2019-05-31] MEDS: CALCIUM CARBONATE 500 MG TABLET PO SCH ×2 (14:57→17:15)
[2019-05-31] MEDS ORDERED: HYDROCODONE/ACETAMINOPHEN 5-325 MG TABLET PO PRN (15:22)
[2019-05-31] MEDS: HEPARIN SODIUM,PORCINE/D5W 25,000 UNIT/250 ML RTUINJ IV PRN (15:55)
--- NOTE | 2019-05-31 16:35 | PDOC PROGRESS REPORT ---
Subjective Progress Note for:: 05/31/19 Subjective:: SUN REMY is a 83 year old female with a PMH of dementia, HTN, CKD 4, NIDDM type 2, COPD not on home O2, history of DEMIAN and B12 deficiency, hypothyroidism and history of GI bleed from a diverticular bleed who was brought in due to left leg swelling. He was found to have an acute left lower extremity DVT and was also noted to be in acute renal failure with severe hyperkalemia. 05/29: She remains cheerful and comfortable this morning. She did complain of pain when left leg was moved. Left lower extremity still appears swollen but does not appear to be worse from yesterday. No discoloration. She denies chest pain or shortness of breath. 05/30: She denies acute complaints. Creatinine continue to improve and is down to 3.2 from 4.1 yesterday. No worsening or discoloration of the left leg. 05/31: No acute event overnight. Creatinine trending down to 3.0. She denies any acute complaints. She continues to be cheerful and comfortable. No bleeding from heparin drip. Will start Coumadin today. Reason For Visit: EXTENSIVE DVT,ACUTE RENAL FAILURE,HYPERKALEMIA Physical Exam Vital Signs: Temp Pulse Resp BP Pulse Ox 98.2 F 69 18 114/96 H 96 05/31/19 15:44 05/31/19 15:44 05/31/19 15:44 05/31/19 15:44 05/31/19 15:44 Intake & Output 05/30/19 05/31/19 06/01/19 06:59 06:59 06:59 Intake Total 3000 2159 1560 Output Total 450 100 250 Balance 2550 2059 1310 Weight 150 lb 5.684 oz 150 lb 5.684 oz General appearance: PRESENT: no acute distress, well-developed, well-nourished Head exam: PRESENT: atraumatic, normocephalic Eye exam: PRESENT: conjunctiva pink, EOMI, PERRLA. ABSENT: scleral icterus Ear exam: PRESENT: normal external ear exam Mouth exam: PRESENT: moist, tongue midline Neck exam: ABSENT: carotid bruit, JVD, lymphadenopathy, thyromegaly Respiratory exam: PRESENT: clear to auscultation mychal. ABSENT: rales, rhonchi, wheezes Cardiovascular exam: PRESENT: RRR. ABSENT: diastolic murmur, rubs, systolic mur mur Pulses: PRESENT: normal dorsalis pedis pul GI/Abdominal exam: PRESENT: normal bowel sounds, soft. ABSENT: distended, guarding, mass, organolmegaly, rebound, tenderness Rectal exam: PRESENT: deferred Extremities exam: PRESENT: +2 edema - left LE Neurological exam: PRESENT: alert, awake, oriented to person, oriented to place, CN II-XII grossly intact. ABSENT: motor sensory deficit Results Laboratory Results: 05/31/19 11:12 05/31/19 04:27 05/31/19 05/31/19 05/31/19 04:27 04:27 11:12 WBC 9.1 8.7 RBC 3.48 L 3.54 L Hgb 9.4 L 9.5 L Hct 28.1 L 28.8 L MCV 81 81 MCH 27.0 26.8 L MCHC 33.3 32.9 RDW 17.0 H 17.3 H Plt Count 273 305 Retic Count (auto) 2.04 Absolute Retic 0.071 Sodium 136.1 L Potassium 4.4 Chloride 104 Carbon Dioxide 26 Anion Gap 6 BUN 43 H Creatinine 3.01 H Est GFR ( Amer) 18 L Est GFR (Non-Af Amer) 15 L Glucose 127 H Calcium 7.4 L Iron 32.1 L TIBC 276 % Saturation 12 Ferritin 99.90 Vitamin B12 501.0 Folate 4.76 05/28/19 05/28/19 05/28/19 14:02 14:02 16:00 Creatine Kinase Cancelled 636 H CK-MB (CK-2) 1.33 Troponin I 0.016 Impressions: Chest X-Ray 05/28/19 13:06 IMPRESSION: 1. Focal parenchymal consolidation suggested in the right lower lung zone. Head CT 05/28/19 13:06 IMPRESSION: CHRONIC CHANGES OF ATROPHY AND MICROVASCULAR ISCHEMIA. NO ACUTE PROCESS. EVIDENCE OF ACUTE STROKE: NO. Cervical Spine CT 05/28/19 13:07 IMPRESSION: Multilevel degenerate changes without evidence of acute bony abnormality of the cervical spine. Hip X-Ray 05/28/19 13:07 IMPRESSION: Decreased osseous mineralization without evidence of acute bony abnormality. Evidence of prior femoral neck gaining and left femur intramedullary hardware. Lower Extremity CT 05/28/19 14:51 IMPRESSION: 1. No fracture or dislocation of the left tibia or fibula. There is a partially imaged intramedullary nail fixation of the distal left femur. 2. Osteopenia. 3. Moderate tricompartmental arthrosis of the left knee. 4. Small nonspecific knee joint effusion. 5. Diffuse soft tissue swelling about the left lower leg. Knee X-Ray 05/29/19 00:00 IMPRESSION: Osteoarthritis Trace suprapatellar knee joint effusion No gross acute displaced fracture Assessment and Plan - Diagnosis (1) Acute deep vein thrombosis (DVT) of left lower extremity Qualifiers: Affected thrombotic vein of extremity: unspecified lower extremity distal vein Qualified Code(s): I82.4Z2 - Acute embolism and thrombosis of unspecified deep veins of left distal lower extremity Is this a current diagnosis for this admission?: Yes Plan: Continue heparin drip. No signs of bleeding. 05/31: Start Coumadin today. Bridging with IV heparin. (2) Acute on chronic renal failure Is this a current diagnosis for this admission?: Yes Plan: P creatinine has slightly trended down from 4.4-4.1. Atient was a known CKD for patient. Patient is making adequate urine at the moment. Will start IV fluids. As mentioned, family expressed that she has previously made the decision not to be initiated and dialysis if she progresses to ESRD. 05/29: Creatinine has trended down slightly from 4.4-4.1. Potassium down to 5.5 from 7.3. Appreciate nephrology input. 05/30: Creatinine improved to 3.2. 05/31: Creatinine trending down to 2.0. Nephrology following. (3) DM type 2 (diabetes mellitus, type 2) Qualifiers: Diabetes mellitus custodial insulin use: without intermediate designer use Diabetes mellitus complication status: without complication Qualified Code(s): E11.9 - Type 2 diabetes mellitus without complications Is this a current diagnosis for this admission?: Yes Plan: Sliding scale for now. (4) Hyperkalemia Is this a current diagnosis for this admission?: Yes Plan: Patient does take potassium supplements at home. She got insulin, glucose and calcium regimen and Kayexalate in the ER. 05/29: Improved. Potassium down to 5.5 from 7.3. 05/30: Resolved. - Time Time Spent with patient: 25-34 minutes
[2019-05-31] MEDS ORDERED: WARFARIN SODIUM 2 MG TABLET PO SCH (22:00)
[2019-05-31 22:50] LABS: APPEARANCE,URINE TURBID; BILIRUBIN,URINE NEGATIVE (NEGATIVE); COLOR,URINE AMBER; GLUCOSE, URINE 50 mg/dL (NEGATIVE); KETONES,URINE NEGATIVE (NEGATIVE); LEUKOCYTE ESTERASE,URINE LARGE (NEGATIVE); NITRITE,URINE NEGATIVE (NEGATIVE); PROTEIN,URINE 100 mg/dL (NEGATIVE); URINE SPECIFIC GRAVITY 1.015; UROBILINOGEN,URINE NEGATIVE mg/dL (<2.0)
[2019-06-01] MEDS: NORMAL SALINE 1000 ML 1,000 ML IV PRN ×2 (00:27→13:39)
[2019-06-01] MEDS: LEVOTHYROXINE SODIUM 0.1 MG TABLET PO SCH (06:22)
[2019-06-01] MEDS: INSULIN LISPRO 100 UNIT/ML 3 ML VIAL SUBCUT SCH ×4 (08:45→21:23)
[2019-06-01 10:32] LABS: INTERNATIONAL RATION (INR) 1.06; PROTHROMBIN TIME 13.8 SEC (11.4-15.4)
[2019-06-01 10:40] LABS: ANION GAP 5 (5-19); BLOOD UREA NITROGEN 43 mg/dL (7-20); CALCIUM 7.9 mg/dL (8.4-10.2); GLUCOSE 166 mg/dL (75-110); POTASSIUM 4.5 mmol/L (3.6-5.0)
[2019-06-01 10:45] LABS: CARBON DIOXIDE 25 mmol/L (22-30); CHLORIDE 105 mmol/L (98-107)
[2019-06-01] MEDS: NIFEDIPINE 30 MG TAB.ER.24 PO SCH (10:50)
[2019-06-01] MEDS: LIDOCAINE 5% (700 MG) TRANSDERMAL ADH..PATCH TOP SCH (10:51)
[2019-06-01] MEDS: ATENOLOL 50 MG TABLET PO SCH ×2 (10:51→21:24)
[2019-06-01] MEDS: CALCIUM CARBONATE 500 MG TABLET PO SCH ×3 (10:51→16:27)
[2019-06-01] MEDS: HEPARIN SODIUM,PORCINE/D5W 25,000 UNIT/250 ML RTUINJ IV PRN (13:39)
--- NOTE | 2019-06-01 15:41 | PDOC PROGRESS REPORT ---
Subjective Progress Note for:: 06/01/19 Subjective:: SUN REMY is a 83 year old female with a PMH of dementia, HTN, CKD 4, NIDDM type 2, COPD not on home O2, history of DEMIAN and B12 deficiency, hypothyroidism and history of GI bleed from a diverticular bleed who was brought in due to left leg swelling. He was found to have an acute left lower extremity DVT and was also noted to be in acute renal failure with severe hyperkalemia. 05/29: She remains cheerful and comfortable this morning. She did complain of pain when left leg was moved. Left lower extremity still appears swollen but does not appear to be worse from yesterday. No discoloration. She denies chest pain or shortness of breath. 05/30: She denies acute complaints. Creatinine continue to improve and is down to 3.2 from 4.1 yesterday. No worsening or discoloration of the left leg. 05/31: Creatinine trending down to 3.0. She denies any acute complaints. She continues to be cheerful and comfortable. No bleeding from heparin drip. Will start Coumadin today. 06/01: No acute event overnight. She continues to do well and denies acute complaints. No worsening of left leg swelling. No discoloration. Continue Coumadin with bridging with heparin drip. Reason For Visit: EXTENSIVE DVT,ACUTE RENAL FAILURE,HYPERKALEMIA Physical Exam Vital Signs: Temp Pulse Resp BP Pulse Ox 98.3 F 79 17 130/54 H 92 06/01/19 07:54 06/01/19 13:54 06/01/19 07:54 06/01/19 07:54 06/01/19 07:54 Intake & Output 05/31/19 06/01/19 06/02/19 06:59 06:59 06:59 Intake Total 2159 3300 1207 Output Total 100 600 Balance 2059 2700 1207 Weight 150 lb 5.684 oz 150 lb 5.684 oz General appearance: PRESENT: no acute distress, well-developed, well-nourished Head exam: PRESENT: atraumatic, normocephalic Eye exam: PRESENT: conjunctiva pink, EOMI, PERRLA. ABSENT: scleral icterus Ear exam: PRESENT: normal external ear exam Mouth exam: PRESENT: moist, tongue midline Neck exam: ABSENT: carotid bruit, JVD, lymphadenopathy, thyromegaly Respiratory exam: PRESENT: clear to auscultation mychal. ABSENT: rales, rhonchi, wheezes Cardiovascular exam: PRESENT: RRR. ABSENT: diastolic murmur, rubs, systolic murmur Pulses: PRESENT: normal dorsalis pedis pul GI/Abdominal exam: PRESENT: normal bowel sounds, soft. ABSENT: distended, guarding, mass, organolmegaly, rebound, tenderness Rectal exam: PRESENT: deferred Extremities exam: PRESENT: +2 edema Neurological exam: PRESENT: alert, awake, oriented to person, oriented to place, CN II-XII grossly intact. ABSENT: motor sensory deficit Results Laboratory Results: 05/31/19 11:12 06/01/19 09:11 05/31/19 06/01/19 22:30 09:11 Sodium 135.4 L Potassium 4.5 Chloride 105 Carbon Dioxide 25 Anion Gap 5 BUN 43 H Creatinine 2.67 H Est GFR ( Amer) 21 L Est GFR (Non-Af Amer) 17 L Glucose 166 H Calcium 7.9 L Urine Color ABIGAIL Urine Appearance TURBID Urine pH 7.0 Ur Specific Thornton 1.015 Urine Protein 100 H Urine Glucose (UA) 50 H Urine Ketones NEGATIVE Urine Blood MODERATE H Urine Nitrite NEGATIVE Ur Leukocyte Esterase LARGE H Urine WBC (Auto) >182 Urine RBC (Auto) 57 05/28/19 05/28/19 05/28/19 14:02 14:02 16:00 Creatine Kinase Cancelled 636 H CK-MB (CK-2) 1.33 Troponin I 0.016 Impressions: Chest X-Ray 05/28/19 13:06 IMPRESSION: 1. Focal parenchymal consolidation suggested in the right lower lung zone. Head CT 05/28/19 13:06 IMPRESSION: CHRONIC CHANGES OF ATROPHY AND MICROVASCULAR ISCHEMIA. NO ACUTE PROCESS. EVIDENCE OF ACUTE STROKE: NO. Cervical Spine CT 05/28/19 13:07 IMPRESSION: Multilevel degenerate changes without evidence of acute bony abnormality of the cervical spine. Hip X-Ray 05/28/19 13:07 IMPRESSION: Decreased osseous mineralization without evidence of acute bony abnormality. Evidence of prior femoral neck gaining and left femur intramedullary hardware. Lower Extremity CT 05/28/19 14:51 IMPRESSION: 1. No fracture or dislocation of the left tibia or fibula. There is a partially imaged intramedullary nail fixation of the distal left femur. 2. Osteopenia. 3. Moderate tricompartmental arthrosis of the left knee. 4. Small nonspecific knee joint effusion. 5. Diffuse soft tissue swelling about the left lower leg. Knee X-Ray 05/29/19 00:00 IMPRESSION: Osteoarthritis Trace suprapatellar knee joint effusion No gross acute displaced fracture Assessment and Plan - Diagnosis (1) Acute deep vein thrombosis (DVT) of left lower extremity Qualifiers: Affected thrombotic vein of extremity: unspecified lower extremity distal vein Qualified Code(s): I82.4Z2 - Acute embolism and thrombosis of unspecified deep veins of left distal lower extremity Is this a current diagnosis for this admission?: Yes Plan: Continue heparin drip. No signs of bleeding. 05/31: Start Coumadin today. Bridging with IV heparin. 06/01: INR 1.0. Continue Coumadin with bridging with heparin drip. (2) Acute on chronic renal failure Is this a current diagnosis for this admission?: Yes Plan: P creatinine has slightly trended down from 4.4-4.1. Atient was a known CKD for patient. Patient is making adequate urine at the moment. Will start IV fluids. As mentioned, family expressed that she has previously made the decision not to be initiated and dialysis if she progresses to ESRD. 05/29: Creatinine has trended down slightly from 4.4-4.1. Potassium down to 5.5 from 7.3. Appreciate nephrology input. 05/30: Creatinine improved to 3.2. 05/31: Creatinine trending down to 3.0. Nephrology following. 06/01: Crea down to 2.6 from 3. (3) DM type 2 (diabetes mellitus, type 2) Qualifiers: Diabetes mellitus remote computer terminal operator insulin use: without remote computer terminal operator use Diabetes mellitus complication status: without complication Qualified Code(s): E11.9 - Type 2 diabetes mellitus without complications Is this a current diagnosis for this admission?: Yes Plan: Continue sliding scale coverage. (4) Hyperkalemia Is this a current diagnosis for this admission?: Yes Plan: Patient does take potassium supplements at home. She got insulin, glucose and calcium regimen and Kayexalate in the ER. 05/29: Improved. Potassium down to 5.5 from 7.3. 05/30: Resolved. - Time Time Spent with patient: 25-34 minutes
[2019-06-01] MEDS ORDERED: WARFARIN SODIUM 2 MG TABLET PO SCH ×2 (22:00)
[2019-06-02] MEDS: NORMAL SALINE 1000 ML 1,000 ML IV PRN ×2 (05:47→18:17)
[2019-06-02] MEDS: LEVOTHYROXINE SODIUM 0.1 MG TABLET PO SCH (05:47)
[2019-06-02 06:41] LABS: PROTHROMBIN TIME 14.2 SEC (11.4-15.4)
[2019-06-02 06:43] LABS: PARTIAL THROMBOPLASTIN TIME 89.9 SEC (23.5-35.8)
[2019-06-02] MEDS: INSULIN LISPRO 100 UNIT/ML 3 ML VIAL SUBCUT SCH ×4 (07:36→21:19)
[2019-06-02 07:58] LABS: ANION GAP 6 (5-19); BLOOD UREA NITROGEN 40 mg/dL (7-20); CALCIUM 7.7 mg/dL (8.4-10.2); CARBON DIOXIDE 23 mmol/L (22-30); CHLORIDE 106 mmol/L (98-107); GLUCOSE 166 mg/dL (75-110); POTASSIUM 4.4 mmol/L (3.6-5.0)
[2019-06-02 08:30] LABS: INTERNATIONAL RATION (INR) 1.11; PROTHROMBIN TIME 14.3 SEC (11.4-15.4)
[2019-06-02] MEDS: CALCIUM CARBONATE 500 MG TABLET PO SCH ×3 (09:02→17:12)
[2019-06-02] MEDS: NIFEDIPINE 30 MG TAB.ER.24 PO SCH (09:02)
[2019-06-02] MEDS: LIDOCAINE 5% (700 MG) TRANSDERMAL ADH..PATCH TOP SCH (09:03)
[2019-06-02] MEDS: ATENOLOL 50 MG TABLET PO SCH ×2 (09:03→21:17)
[2019-06-02] MEDS: HEPARIN SODIUM,PORCINE/D5W 25,000 UNIT/250 ML RTUINJ IV PRN (14:53)
--- NOTE | 2019-06-02 16:11 | PDOC PROGRESS REPORT ---
Subjective Progress Note for:: 06/02/19 Subjective:: SUN REMY is a 83 year old female with a PMH of dementia, HTN, CKD 4, NIDDM type 2, COPD not on home O2, history of DEMIAN and B12 deficiency, hypothyroidism and history of GI bleed from a diverticular bleed who was brought in due to left leg swelling. He was found to have an acute left lower extremity DVT and was also noted to be in acute renal failure with severe hyperkalemia. 05/29: She remains cheerful and comfortable this morning. She did complain of pain when left leg was moved. Left lower extremity still appears swollen but does not appear to be worse from yesterday. No discoloration. She denies chest pain or shortness of breath. 05/30: She denies acute complaints. Creatinine continue to improve and is down to 3.2 from 4.1 yesterday. No worsening or discoloration of the left leg. 05/31: Creatinine trending down to 3.0. She denies any acute complaints. She continues to be cheerful and comfortable. No bleeding from heparin drip. Will start Coumadin today. 06/02: No acute event overnight. She continues to do well and denies acute complaints. No worsening of left leg swelling. No discoloration. Increase coumadin to 3 mg daily. Continue Coumadin with bridging with heparin drip. She will be cleared for discharge to SNF/rehab once INR is therapeutic. Reason For Visit: EXTENSIVE DVT,ACUTE RENAL FAILURE,HYPERKALEMIA Physical Exam Vital Signs: Temp Pulse Resp BP Pulse Ox 98.7 F 73 18 90/52 L 95 06/02/19 11:55 06/02/19 14:00 06/02/19 11:55 06/02/19 11:55 06/02/19 11:55 Intake & Output 06/01/19 06/02/19 06/03/19 06:59 06:59 06:59 Intake Total 3300 3087 1050 Output Total 600 770 400 Balance 2700 2317 650 Weight 150 lb 5.684 oz 150 lb 9.211 oz General appearance: PRESENT: no acute distress, well-developed, well-nourished Head exam: PRESENT: atraumatic, normocephalic Eye exam: PRESENT: conjunctiva pink, EOMI, PERRLA. ABSENT: scleral icterus Ear exam: PRESENT: normal external ear exam Mouth exam: PRESENT: moist, tongue midline Neck exam: ABSENT: carotid bruit, JVD, lymphadenopathy, thyromegaly Respiratory exam: PRESENT: clear to auscultation mychal. ABSENT: rales, rhonchi, wheezes Cardiovascular exam: PRESENT: RRR. ABSENT: diastolic murmur, rubs, systolic murmur Pulses: PRESENT: normal dorsalis pedis pul GI/Abdominal exam: PRESENT: normal bowel sounds, soft. ABSENT: distended, guarding, mass, organolmegaly, rebound, tenderness Rectal exam: PRESENT: deferred Extremities exam: PRESENT: +2 edema - left LE Neurological exam: PRESENT: alert, awake, oriented to person, oriented to place, CN II-XII grossly intact. ABSENT: motor sensory deficit Results Laboratory Results: 05/31/19 11:12 06/02/19 05:41 06/02/19 06/02/19 05:41 14:00 Sodium 134.6 L Potassium 4.4 Chloride 106 Carbon Dioxide 23 Anion Gap 6 BUN 40 H Creatinine 2.54 H Est GFR ( Amer) 22 L Est GFR (Non-Af Amer) 18 L Glucose 166 H Calcium 7.7 L Stool Occult Blood NEGATIVE 05/30/19 00:43 Gibbs Catheter Urine Culture - Final Lactobacillus (Vaginal Aysha) 05/28/19 05/28/19 05/28/19 14:02 14:02 16:00 Creatine Kinase Cancelled 636 H CK-MB (CK-2) 1.33 Troponin I 0.016 Impressions: Chest X-Ray 05/28/19 13:06 IMPRESSION: 1. Focal parenchymal consolidation suggested in the right lower lung zone. Head CT 05/28/19 13:06 IMPRESSION: CHRONIC CHANGES OF ATROPHY AND MICROVASCULAR ISCHEMIA. NO ACUTE PROCESS. EVIDENCE OF ACUTE STROKE: NO. Cervical Spine CT 05/28/19 13:07 IMPRESSION: Multilevel degenerate changes without evidence of acute bony abnormality of the cervical spine. Hip X-Ray 05/28/19 13:07 IMPRESSION: Decreased osseous mineralization without evidence of acute bony abnormality. Evidence of prior femoral neck gaining and left femur intramedullary hardware. Lower Extremity CT 05/28/19 14:51 IMPRESSION: 1. No fracture or dislocation of the left tibia or fibula. There is a partially imaged intramedullary nail fixation of the distal left femur. 2. Osteopenia. 3. Moderate tricompartmental arthrosis of the left knee. 4. Small nonspecific knee joint effusion. 5. Diffuse soft tissue swelling about the left lower leg. Knee X-Ray 05/29/19 00:00 IMPRESSION: Osteoarthritis Trace suprapatellar knee joint effusion No gross acute displaced fracture Assessment and Plan - Diagnosis (1) Acute deep vein thrombosis (DVT) of left lower extremity Qualifiers: Affected thrombotic vein of extremity: unspecified lower extremity distal ve in Qualified Code(s): I82.4Z2 - Acute embolism and thrombosis of unspecified deep veins of left distal lower extremity Is this a current diagnosis for this admission?: Yes Plan: Continue heparin drip. No signs of bleeding. 05/31: Start Coumadin today. Bridging with IV heparin. 06/01: INR 1.0. Continue Coumadin with bridging with heparin drip. 06/02: Increase Coumadin to 3 mg daily. (2) Acute on chronic renal failure Is this a current diagnosis for this admission?: Yes Plan: P creatinine has slightly trended down from 4.4-4.1. Atient was a known CKD for patient. Patient is making adequate urine at the moment. Will start IV fluids. As mentioned, family expressed that she has previously made the decision not to be initiated and dialysis if she progresses to ESRD. 05/29: Creatinine has trended down slightly from 4.4-4.1. Potassium down to 5.5 from 7.3. Appreciate nephrology input. 05/30: Creatinine improved to 3.2. 05/31: Creatinine trending down to 3.0. Nephrology following. 06/01: Crea down to 2.6 from 3. 06/02: Crea appears to be stabilizing at 2.5. (3) DM type 2 (diabetes mellitus, type 2) Qualifiers: Diabetes mellitus exterminator helper termite insulin use: without jail use Diabetes mellitus complication status: without complication Qualified Code(s): E11.9 - Type 2 diabetes mellitus without complications Is this a current diagnosis for this admission?: Yes Plan: Continue sliding scale coverage. (4) Hyperkalemia Is this a current diagnosis for this admission?: Yes Plan: Patient does take potassium supplements at home. She got insulin, glucose and calcium regimen and Kayexalate in the ER. 05/29: Improved. Potassium down to 5.5 from 7.3. 05/30: Resolved. - Time Time Spent with patient: 15-24 minutes
[2019-06-02] MEDS: DOCUSATE SODIUM 100 MG CAPSULE PO PRN (19:30)
[2019-06-02] MEDS ORDERED: WARFARIN SODIUM 3 MG TABLET PO SCH (22:00)
[2019-06-03 05:02] LABS: HEMATOCRIT 26.4 % (36.0-47.0); HEMOGLOBIN 8.7 g/dL (12.0-15.5); MEAN CORPUSCULAR HEMOGLOBIN 27.1 pg (27.0-33.4); MEAN CORPUSCULAR VOLUME 82 fl (80-97); PLATELET COUNT 303 10^3/uL (150-450); RED BLOOD COUNT 3.22 10^6/uL (3.72-5.28); RED CELL DISTRIBUTION WIDTH 16.7 % (11.5-14.0); WHITE BLOOD COUNT 8.1 10^3/uL (4.0-10.5)
[2019-06-03] MEDS: LEVOTHYROXINE SODIUM 0.1 MG TABLET PO SCH (05:09)
[2019-06-03 05:16] LABS: INTERNATIONAL RATION (INR) 1.26; PROTHROMBIN TIME 15.9 SEC (11.4-15.4)
[2019-06-03 05:18] LABS: PARTIAL THROMBOPLASTIN TIME 101.2 SEC (23.5-35.8)
[2019-06-03] MEDS: INSULIN LISPRO 100 UNIT/ML 3 ML VIAL SUBCUT SCH ×4 (07:57→21:25)
[2019-06-03] MEDS: NORMAL SALINE 1000 ML 1,000 ML IV PRN (08:29)
[2019-06-03] MEDS: LIDOCAINE 5% (700 MG) TRANSDERMAL ADH..PATCH TOP SCH (09:36)
[2019-06-03] MEDS: NIFEDIPINE 30 MG TAB.ER.24 PO SCH (09:36)
[2019-06-03] MEDS: CALCIUM CARBONATE 500 MG TABLET PO SCH ×3 (09:36→17:02)
[2019-06-03] MEDS: ATENOLOL 50 MG TABLET PO SCH ×2 (09:37→21:23)
[2019-06-03 09:59] LABS: ANION GAP 6 (5-19); BLOOD UREA NITROGEN 37 mg/dL (7-20); CARBON DIOXIDE 20 mmol/L (22-30); CHLORIDE 109 mmol/L (98-107); GLUCOSE 104 mg/dL (75-110); POTASSIUM 4.1 mmol/L (3.6-5.0)
--- NOTE | 2019-06-03 15:07 | PDOC PROGRESS REPORT ---
Subjective Progress Note for:: 06/03/19 Subjective:: SUN REMY is a 83 year old female with a PMH of dementia, HTN, CKD 4, NIDDM type 2, COPD not on home O2, history of DEMIAN and B12 deficiency, hypothyroidism and history of GI bleed from a diverticular bleed who was brought in due to left leg swelling. He was found to have an acute left lower extremity DVT and was also noted to be in acute renal failure with severe hyperkalemia. 05/29: She remains cheerful and comfortable this morning. She did complain of pain when left leg was moved. Left lower extremity still appears swollen but does not appear to be worse from yesterday. No discoloration. She denies chest pain or shortness of breath. 05/30: She denies acute complaints. Creatinine continue to improve and is down to 3.2 from 4.1 yesterday. No worsening or discoloration of the left leg. 05/31: Creatinine trending down to 3.0. She denies any acute complaints. She continues to be cheerful and comfortable. No bleeding from heparin drip. Will start Coumadin today. 06/02: She continues to do well and denies acute complaints. No worsening of left leg swelling. No discoloration. Increase coumadin to 3 mg daily. Continue Coumadin with bridging with heparin drip. She will be cleared for discharge to SNF/rehab once INR is therapeutic. 06/03: No acute event overnight. No acute issues. INR slightly up from 1.0 to 1.2. Increase Coumadin to 4 mg daily. Anticipating discharge to [place] once her INR becomes therapeutic. Reason For Visit: EXTENSIVE DVT,ACUTE RENAL FAILURE,HYPERKALEMIA Physical Exam Vital Signs: Temp Pulse Resp BP Pulse Ox 98.5 F 65 19 157/76 H 98 06/03/19 11:39 06/03/19 11:39 06/03/19 11:39 06/03/19 11:39 06/03/19 11:39 Intake & Output 06/02/19 06/03/19 06/04/19 06:59 06:59 06:59 Intake Total 3087 2308 1495 Output Total 770 975 200 Balance 2317 1333 1295 Weight 150 lb 9.211 oz General appearance: PRESENT: no acute distress, well-developed, well-nourished Head exam: PRESENT: atraumatic, normocephalic Eye exam: PRESENT: conjunctiva pink, EOMI, PERRLA. ABSENT: scleral icterus Ear exam: PRESENT: normal external ear exam Mouth exam: PRESENT: moist, tongue midline Neck exam: ABSENT: carotid bruit, JVD, lymphadenopathy, thyromegaly Respiratory exam: PRESENT: clear to auscultation mychal. ABSENT: rales, rhonchi, wheezes Cardiovascular exam: PRESENT: RRR. ABSENT: diastolic murmur, rubs, systolic murmur Pulses: PRESENT: normal dorsalis pedis pul GI/Abdominal exam: PRESENT: normal bowel sounds, soft. ABSENT: distended, guarding, mass, organolmegaly, rebound, tenderness Rectal exam: PRESENT: deferred Extremities exam: PRESENT: +2 edema - left LE Neurological exam: PRESENT: alert, awake, oriented to person, oriented to place, oriented to time, oriented to situation, CN II-XII grossly intact. ABSENT: motor sensory deficit Results Laboratory Results: 06/03/19 04:40 06/03/19 04:40 06/03/19 06/03/19 04:40 04:40 WBC 8.1 RBC 3.22 L Hgb 8.7 L Hct 26.4 L MCV 82 MCH 27.1 MCHC 33.0 RDW 16.7 H Plt Count 303 Sodium 135.1 L Potassium 4.1 Chloride 109 H Carbon Dioxide 20 L Anion Gap 6 BUN 37 H Creatinine 2.20 H Est GFR ( Amer) 26 L Est GFR (Non-Af Amer) 21 L Glucose 104 Calcium 8.0 L 05/28/19 05/28/19 05/28/19 14:02 14:02 16:00 Creatine Kinase Cancelled 636 H CK-MB (CK-2) 1.33 Troponin I 0.016 Impressions: Chest X-Ray 05/28/19 13:06 IMPRESSION: 1. Focal parenchymal consolidation suggested in the right lower lung zone. Head CT 05/28/19 13:06 IMPRESSION: CHRONIC CHANGES OF ATROPHY AND MICROVASCULAR ISCHEMIA. NO ACUTE PROCESS. EVIDENCE OF ACUTE STROKE: NO. Cervical Spine CT 05/28/19 13:07 IMPRESSION: Multilevel degenerate changes without evidence of acute bony abnormality of the cervical spine. Hip X-Ray 05/28/19 13:07 IMPRESSION: Decreased osseous mineralization without evidence of acute bony abnormality. Evidence of prior femoral neck gaining and left femur intramedullary hardware. Lower Extremity CT 05/28/19 14:51 IMPRESSION: 1. No fracture or dislocation of the left tibia or fibula. There is a partially imaged intramedullary nail fixation of the distal left femur. 2. Osteopenia. 3. Moderate tricompartmental arthrosis of the left knee. 4. Small nonspecific knee joint effusion. 5. Diffuse soft tissue swelling about the left lower leg. Knee X-Ray 05/29/19 00:00 IMPRESSION: Osteoarthritis Trace suprapatellar knee joint effusion No gross acute displaced fracture Assessment and Plan - Diagnosis (1) Acute deep vein thrombosis (DVT) of left lower extremity Qualifiers: Affected thrombotic vein of extremity: unspecified lower extremity distal vein Qualified Code(s): I82.4Z2 - Acute embolism and thrombosis of unspecified deep veins of left distal lower extremity Is this a current diagnosis for this admission?: Yes Plan: Continue heparin drip. No signs of bleeding. 05/31: Start Coumadin today. Bridging with IV heparin. 06/01: INR 1.0. Continue Coumadin with bridging with heparin drip. 06/02: Increase Coumadin to 3 mg daily. 06/03: INR slightly up from 1.0 to 1.2. Increase Coumadin to 4 mg daily. Anticipating discharge to [place] once her INR becomes therapeutic. (2) Acute on chronic renal failure Is this a current diagnosis for this admission?: Yes Plan: P creatinine has slightly trended down from 4.4-4.1. At[place] was a known CKD for patient. Patient is making adequate urine at the moment. Will start IV fluids. As mentioned, family expressed that she has previously made the decision not to be initiated and dialysis if she progresses to ESRD. 05/29: Creatinine has trended down slightly from 4.4-4.1. Potassium down to 5.5 from 7.3. Appreciate nephrology input. 05/30: Creatinine improved to 3.2. 05/31: Creatinine trending down to 3.0. Nephrology following. 06/01: Crea down to 2.6 from 3. 06/02: Crea appears to be stabilizing at 2.5. 06/03: Creatinine down to 2.2. (3) DM type 2 (diabetes mellitus, type 2) Qualifiers: Diabetes mellitus assisted insulin use: without termite control technician use Diabetes mellitus complication status: without complication Qualified Code(s): E11.9 - Type 2 diabetes mellitus without complications Is this a current diagnosis for this admission?: Yes Plan: Continue sliding scale coverage. (4) Hyperkalemia Is this a current diagnosis for this admission?: Yes Plan: Patient does take potassium supplements at home. She got insulin, glucose and calcium regimen and Kayexalate in the ER. 05/29: Improved. Potassium down to 5.5 from 7.3. 05/30: Resolved. - Time Time Spent with patient: 25-34 minutes
[2019-06-03] MEDS: HEPARIN SODIUM,PORCINE/D5W 25,000 UNIT/250 ML RTUINJ IV PRN (15:16)
[2019-06-03] MEDS: HEPARIN SOD (PORCINE) 1,000 UNIT/ML 10 ML VIAL IV PRN (16:52)
[2019-06-03] MEDS: DOCUSATE SODIUM 100 MG CAPSULE PO PRN (18:21)
[2019-06-03] MEDS: WARFARIN SODIUM 5 MG TABLET PO SCH (21:23)
[2019-06-03] MEDS ORDERED: WARFARIN SODIUM 4 MG TABLET PO SCH (22:00)
[2019-06-04] MEDS: LEVOTHYROXINE SODIUM 0.1 MG TABLET PO SCH (05:13)
[2019-06-04 07:47] LABS: INTERNATIONAL RATION (INR) 1.65; PROTHROMBIN TIME 19.7 SEC (11.4-15.4)
[2019-06-04 07:49] LABS: PARTIAL THROMBOPLASTIN TIME 94.2 SEC (23.5-35.8)
[2019-06-04 08:02] LABS: ANION GAP 5 (5-19); BLOOD UREA NITROGEN 37 mg/dL (7-20); CALCIUM 8.5 mg/dL (8.4-10.2); CARBON DIOXIDE 22 mmol/L (22-30); CHLORIDE 107 mmol/L (98-107); GLUCOSE 137 mg/dL (75-110); POTASSIUM 4.2 mmol/L (3.6-5.0)
[2019-06-04] MEDS: INSULIN LISPRO 100 UNIT/ML 3 ML VIAL SUBCUT SCH ×4 (09:01→21:41)
[2019-06-04] MEDS: CALCIUM CARBONATE 500 MG TABLET PO SCH ×3 (09:47→16:36)
[2019-06-04] MEDS: ATENOLOL 50 MG TABLET PO SCH ×2 (09:47→21:49)
[2019-06-04] MEDS: LIDOCAINE 5% (700 MG) TRANSDERMAL ADH..PATCH TOP SCH (09:47)
[2019-06-04] MEDS: NIFEDIPINE 30 MG TAB.ER.24 PO SCH (09:47)
--- NOTE | 2019-06-04 11:33 | PDOC PROGRESS REPORT ---
Subjective Progress Note for:: 06/04/19 Subjective:: 83 year old female with a PMH of dementia, HTN, CKD 4, NIDDM type 2, COPD not on home O2, history of DEMIAN and B12 deficiency, hypothyroidism and history of GI bleed from a diverticular bleed who was brought in due to left leg swelling. He was found to have an acute left lower extremity DVT and was also noted to be in acute renal failure with severe hyperkalemia. 05/29: She remains cheerful and comfortable this morning. She did complain of pain when left leg was moved. Left lower extremity still appears swollen but does not appear to be worse from yesterday. No discoloration. She denies chest pain or shortness of breath. 05/30: She denies acute complaints. Creatinine continue to improve and is down to 3.2 from 4.1 yesterday. No worsening or discoloration of the left leg. 05/31: Creatinine trending down to 3.0. She denies any acute complaints. She continues to be cheerful and comfortable. No bleeding from heparin drip. Will start Coumadin today. 06/02: She continues to do well and denies acute complaints. No worsening of left leg swelling. No discoloration. Increase coumadin to 3 mg daily. Continue Coumadin with bridging with heparin drip. She will be cleared for discharge to SNF/rehab once INR is therapeutic. 06/03: No acute event overnight. No acute issues. INR slightly up from 1.0 to 1.2. Increase Coumadin to 4 mg daily. Anticipating discharge to [place] once her INR becomes therapeutic. 06/04/2019-no acute events in the last 24 hours. Patient is presently on Coumadin 4 mg p.o. daily and also on heparin drip. INR is 1.65. Plan is to continue the heparin drip until the INR is more than 2 4 to continue to suggest. pt is waiting for placement in [place] [facility]. Reason For Visit: EXTENSIVE DVT,ACUTE RENAL FAILURE,HYPERKALEMIA Physical Exam Vital Signs: Temp Pulse Resp BP Pulse Ox 98.6 F 65 17 150/58 H 96 06/04/19 07:48 06/04/19 07:48 06/04/19 07:48 06/04/19 07:48 06/04/19 07:48 Intake & Output 06/03/19 06/04/19 06/05/19 06:59 06:59 06:59 Intake Total 2308 1939 Output Total 975 200 Balance 1333 1739 Weight 81.4 kg General appearance: PRESENT: no acute distress, cooperative Head exam: PRESENT: atraumatic Eye exam: PRESENT: PERRLA Ear exam: PRESENT: normal external ear exam Mouth exam: PRESENT: neck supple Teeth exam: PRESENT: poor dentation Neck exam: ABSENT: carotid bruit, JVD, lymphadenopathy, thyromegaly Respiratory exam: PRESENT: clear to auscultation mychal. ABSENT: rales, rhonchi, wheezes Cardiovascular exam: PRESENT: RRR. ABSENT: diastolic murmur, rubs, systolic murmur GI/Abdominal exam: PRESENT: normal bowel sounds, soft. ABSENT: distended, guarding, mass, organolmegaly, rebound, tenderness Rectal exam: PRESENT: deferred Extremities exam: PRESENT: full ROM. ABSENT: calf tenderness, clubbing, pedal edema Neurological exam: PRESENT: alert, awake, oriented to person, oriented to place, oriented to time, oriented to situation, CN II-XII grossly intact. ABSENT: motor sensory deficit Results Laboratory Results: 06/03/19 04:40 06/04/19 06:57 06/04/19 06:57 Sodium 134.4 L Potassium 4.2 Chloride 107 Carbon Dioxide 22 Anion Gap 5 BUN 37 H Creatinine 2.07 H Est GFR ( Amer) 28 L Est GFR (Non-Af Amer) 23 L Glucose 137 H Calcium 8.5 05/28/19 05/28/19 05/28/19 14:02 14:02 16:00 Creatine Kinase Cancelled 636 H CK-MB (CK-2) 1.33 Troponin I 0.016 Impressions: Chest X-Ray 05/28/19 13:06 IMPRESSION: 1. Focal parenchymal consolidation suggested in the right lower lung zone. Head CT 05/28/19 13:06 IMPRESSION: CHRONIC CHANGES OF ATROPHY AND MICROVASCULAR ISCHEMIA. NO ACUTE PROCESS. EVIDENCE OF ACUTE STROKE: NO. Cervical Spine CT 05/28/19 13:07 IMPRESSION: Multilevel degenerate changes without evidence of acute bony abnormality of the cervical spine. Hip X-Ray 05/28/19 13:07 IMPRESSION: Decreased osseous mineralization without evidence of acute bony abnormality. Evidence of prior femoral neck gaining and left femur intramedullary hardware. Lower Extremity CT 05/28/19 14:51 IMPRESSION: 1. No fracture or dislocation of the left tibia or fibula. There is a partially imaged intramedullary nail fixation of the distal left femur. 2. Osteopenia. 3. Moderate tricompartmental arthrosis of the left knee. 4. Small nonspecific knee joint effusion. 5. Diffuse soft tissue swelling about the left lower leg. Knee X-Ray 05/29/19 00:00 IMPRESSION: Osteoarthritis Trace suprapatellar knee joint effusion No gross acute displaced fracture Assessment and Plan - Diagnosis (1) Acute deep vein thrombosis (DVT) of left lower extremity Qualifiers: Affected thrombotic vein of extremity: unspecified lower extremity distal vein Qualified Code(s): I82.4Z2 - Acute embolism and thrombosis of unspecified deep veins of left distal lower extremity Is this a current diagnosis for this admission?: Yes Plan: Continue heparin drip. No signs of bleeding. 05/31: Start Coumadin today. Bridging with IV heparin. 06/01: INR 1.0. Continue Coumadin with bridging with heparin drip. 06/02: Increase Coumadin to 3 mg daily. 06/03: INR slightly up from 1.0 to 1.2. Increase Coumadin to 4 mg daily. Anticipating discharge to [place] once her INR becomes therapeutic. 12/05/2018-INR today is 1.65 presently on Coumadin 4 mg p.o. daily she is also on heparin drip. Plan is to bring the INR to more than 2 for 2 continuous days at least then will stop the heparin drip. (2) Acute on chronic renal failure Is this a current diagnosis for this admission?: Yes Plan: P creatinine has slightly trended down from 4.4-4.1. At[place] was a known CKD for patient. Patient is making adequate urine at the moment. Will start IV fluids. As mentioned, family expressed that she has previously made the decision not to be initiated and dialysis if she progresses to ESRD. 05/29: Creatinine has trended down slightly from 4.4-4.1. Potassium down to 5.5 from 7.3. Appreciate nephrology input. 05/30: Creatinine improved to 3.2. 05/31: Creatinine trending down to 3.0. Nephrology following. 06/01: Crea down to 2.6 from 3. 06/02: Crea appears to be stabilizing at 2.5. 06/03: Creatinine down to 2.2. 06/04/2019-creatinine was improved to 2.07 admitted with creatinine of 4.4 PARUL most likely secondary to poor oral intake. Improving. (3) Anemia Qualifiers: Anemia type: iron deficiency Is this a current diagnosis for this admission?: Yes Plan: 12/05/2018-patient's hemoglobin is 8.7 anemia of chronic disease most likely secondary to underlying CKD. (4) DM type 2 (diabetes mellitus, type 2) Qualifiers: Diabetes mellitus shelter insulin use: without shelter use Diabetes mellitus complication status: without complication Qualified Code(s): E11.9 - Type 2 diabetes mellitus without complications Is this a current diagnosis for this admission?: Yes Plan: Continue sliding scale coverage. 06/04/2019-patient blood sugar is 137 this morning plan is to continue the insulin sliding scale. (5) Dementia Is this a current diagnosis for this admission?: Yes Plan: 12/05/2018-patient has history of dementia not agitated comfortably in the bed. Not in distress. Presently she is not on any medications for dementia. (6) Hyperkalemia Is this a current diagnosis for this admission?: Yes Plan: Patient does take potassium supplements at home. She got insulin, glucose and calcium regimen and Kayexalate in the ER. 05/29: Improved. Potassium down to 5.5 from 7.3. 05/30: Resolved. 12/05/2018-patient serum potassium is 4.2 hyperkalemia is resolved. - Time Time Spent with patient: 25-34 minutes Medications reviewed and adjusted accordingly: Yes Anticipated discharge: SNF
[2019-06-04] MEDS ORDERED: (PENDING PHARMACY ID) (Megestrol Acetate [Megestrol Acetate] 10 ML) PO SCH (13:15)
[2019-06-04] MEDS ORDERED: (PENDING PHARMACY ID) (Potassium Chloride [Klor-Con M20] 20 MEQ) PO SCH (13:15)
[2019-06-04] MEDS ORDERED: MAGNESIUM CITRATE 296 ML BOTTLE PO ONE ×2 (14:15→14:45)
[2019-06-04] MEDS: LOSARTAN POTASSIUM 50 MG TABLET PO SCH (14:36)
[2019-06-04] MEDS: FERROUS SULFATE 325 MG TABLET PO SCH (14:36)
[2019-06-04] MEDS ORDERED: MAGNESIUM CITRATE 296 ML BOTTLE PO SCH (16:00)
[2019-06-04] MEDS: SITAGLIPTIN PHOSPHATE 50 MG TABLET PO SCH (16:36)
[2019-06-04] MEDS: MEGESTROL ACETATE SUSP 400 MG/10 ML UDCUP PO SCH (16:37)
[2019-06-04] MEDS: CETIRIZINE 5 MG TABLET PO SCH (21:49)
[2019-06-04] MEDS: ATORVASTATIN CALCIUM 40 MG TABLET PO SCH (21:49)
[2019-06-04] MEDS: FENOFIBRATE NANOCRYSTALLIZED 48 MG TABLET PO SCH (21:49)
[2019-06-04] MEDS: WARFARIN SODIUM 5 MG TABLET PO SCH (21:49)
[2019-06-04] MEDS ORDERED: FENOFIBRATE 54 MG PO SCH (22:00)
[2019-06-04] MEDS: HEPARIN SODIUM,PORCINE/D5W 25,000 UNIT/250 ML RTUINJ IV PRN (22:30)
[2019-06-05] MEDS: LEVOTHYROXINE SODIUM 0.1 MG TABLET PO SCH (05:01)
[2019-06-05 06:53] LABS: PROTHROMBIN TIME 23.9 SEC (11.4-15.4)
[2019-06-05 06:56] LABS: PARTIAL THROMBOPLASTIN TIME 109.4 SEC (23.5-35.8)
[2019-06-05 07:03] LABS: HEMATOCRIT 26.6 % (36.0-47.0); HEMOGLOBIN 8.8 g/dL (12.0-15.5); MEAN CORPUSCULAR HEMOGLOBIN 26.8 pg (27.0-33.4); MEAN CORPUSCULAR VOLUME 81 fl (80-97); PLATELET COUNT 311 10^3/uL (150-450); RED BLOOD COUNT 3.27 10^6/uL (3.72-5.28); RED CELL DISTRIBUTION WIDTH 17.1 % (11.5-14.0)
[2019-06-05 09:10] LABS: ALANINE AMINOTRANSFERASE 37 U/L (9-52); ALKALINE PHOSPHATASE 50 U/L (38-126); ANION GAP 5 (5-19); ASPARTATE AMINO TRANSFERASE 23 U/L (14-36); BILIRUBIN,DIRECT 0.4 mg/dL (0.0-0.4); BILIRUBIN,TOTAL 0.4 mg/dL (0.2-1.3); BLOOD UREA NITROGEN 36 mg/dL (7-20); CALCIUM 8.4 mg/dL (8.4-10.2); CARBON DIOXIDE 23 mmol/L (22-30); CHLORIDE 106 mmol/L (98-107); GLUCOSE 119 mg/dL (75-110); POTASSIUM 4.2 mmol/L (3.6-5.0); TOTAL PROTEIN 4.3 g/dL (6.3-8.2)
--- NOTE | 2019-06-05 10:02 | PDOC PROGRESS REPORT ---
Subjective Progress Note for:: 06/05/19 Subjective:: 83 year old female with a PMH of dementia, HTN, CKD 4, NIDDM type 2, COPD not on home O2, history of DEMIAN and B12 deficiency, hypothyroidism and history of GI bleed from a diverticular bleed who was brought in due to left leg swelling. He was found to have an acute left lower extremity DVT and was also noted to be in acute renal failure with severe hyperkalemia. 05/29: She remains cheerful and comfortable this morning. She did complain of pain when left leg was moved. Left lower extremity still appears swollen but does not appear to be worse from yesterday. No discoloration. She denies chest pain or shortness of breath. 05/30: She denies acute complaints. Creatinine continue to improve and is down to 3.2 from 4.1 yesterday. No worsening or discoloration of the left leg. 05/31: Creatinine trending down to 3.0. She denies any acute complaints. She continues to be cheerful and comfortable. No bleeding from heparin drip. Will start Coumadin today. 06/02: She continues to do well and denies acute complaints. No worsening of left leg swelling. No discoloration. Increase coumadin to 3 mg daily. Continue Coumadin with bridging with heparin drip. She will be cleared for discharge to SNF/rehab once INR is therapeutic. 06/03: No acute event overnight. No acute issues. INR slightly up from 1.0 to 1.2. Increase Coumadin to 4 mg daily. Anticipating discharge to [place] once her INR becomes therapeutic. 06/04/2019-no acute events in the last 24 hours. Patient is presently on Coumadin 4 mg p.o. daily and also on heparin drip. INR is 1.65. Plan is to continue the heparin drip until the INR is more than 2 4 to continue to suggest. pt is waiting for placement in [place] [facility]. 06/05/2019-patient is comfortably in the bed not in distress. INR came back 2.01. Presently on a heparin drip and also on Coumadin 4 mg p.o. nightly plan is to discontinue heparin drip from today and to recheck PT/INR tomorrow. And plan to continue Coumadin 4 mg p.o. nightly. Reason For Visit: EXTENSIVE DVT,ACUTE RENAL FAILURE,HYPERKALEMIA Physical Exam Vital Signs: Temp Pulse Resp BP Pulse Ox 98.4 F 64 16 179/65 H 100 06/05/19 07:26 06/05/19 07:26 06/05/19 07:26 06/05/19 07:26 06/05/19 07:26 Intake & Output 06/04/19 06/05/19 06/06/19 06:59 06:59 06:59 Intake Total 1939 866 89 Output Total 200 Balance 1739 866 89 Weight 81.4 kg 98 kg General appearance: PRESENT: no acute distress Head exam: PRESENT: atraumatic Eye exam: PRESENT: PERRLA Mouth exam: PRESENT: moist, tongue midline Teeth exam: PRESENT: poor dentation Neck exam: ABSENT: carotid bruit, JVD, lymphadenopathy, thyromegaly Respiratory exam: PRESENT: clear to auscultation mychal. ABSENT: rales, rhonchi, wheezes Cardiovascular exam: PRESENT: RRR. ABSENT: diastolic murmur, rubs, systolic murmur GI/Abdominal exam: PRESENT: normal bowel sounds, soft. ABSENT: distended, guarding, mass, organolmegaly, rebound, tenderness Rectal exam: PRESENT: deferred Extremities exam: PRESENT: full ROM. ABSENT: calf tenderness, clubbing, pedal edema Neurological exam: PRESENT: alert, awake, CN II-XII grossly intact, other Results Laboratory Results: 06/05/19 06:06 06/05/19 08:12 06/05/19 06/05/19 06:06 08:12 WBC 10.0 RBC 3.27 L Hgb 8.8 L Hct 26.6 L MCV 81 MCH 26.8 L MCHC 33.0 RDW 17.1 H Plt Count 311 Sodium 134.2 L Potassium 4.2 Chloride 106 Carbon Dioxide 23 Anion Gap 5 BUN 36 H Creatinine 2.18 H Est GFR ( Amer) 26 L Est GFR (Non-Af Amer) 22 L Glucose 119 H Calcium 8.4 Total Bilirubin 0.4 AST 23 ALT 37 Alkaline Phosphatase 50 Total Protein 4.3 L Albumin 2.0 L 05/28/19 05/28/19 05/28/19 14:02 14:02 16:00 Creatine Kinase Cancelled 636 H CK-MB (CK-2) 1.33 Troponin I 0.016 Impressions: Chest X-Ray 05/28/19 13:06 IMPRESSION: 1. Focal parenchymal consolidation suggested in the right lower lung zone. Head CT 05/28/19 13:06 IMPRESSION: CHRONIC CHANGES OF ATROPHY AND MICROVASCULAR ISCHEMIA. NO ACUTE PROCESS. EVIDENCE OF ACUTE STROKE: NO. Cervical Spine CT 05/28/19 13:07 IMPRESSION: Multilevel degenerate changes without evidence of acute bony ab normality of the cervical spine. Hip X-Ray 05/28/19 13:07 IMPRESSION: Decreased osseous mineralization without evidence of acute bony abnormality. Evidence of prior femoral neck gaining and left femur intramedullary hardware. Lower Extremity CT 05/28/19 14:51 IMPRESSION: 1. No fracture or dislocation of the left tibia or fibula. There is a partially imaged intramedullary nail fixation of the distal left femur. 2. Osteopenia. 3. Moderate tricompartmental arthrosis of the left knee. 4. Small nonspecific knee joint effusion. 5. Diffuse soft tissue swelling about the left lower leg. Knee X-Ray 05/29/19 00:00 IMPRESSION: Osteoarthritis Trace suprapatellar knee joint effusion No gross acute displaced fracture Assessment and Plan - Diagnosis (1) Acute deep vein thrombosis (DVT) of left lower extremity Qualifiers: Affected thrombotic vein of extremity: unspecified lower extremity distal vein Qualified Code(s): I82.4Z2 - Acute embolism and thrombosis of unspecified deep veins of left distal lower extremity Is this a current diagnosis for this admission?: Yes Plan: Continue heparin drip. No signs of bleeding. 05/31: Start Coumadin today. Bridging with IV heparin. 06/01: INR 1.0. Continue Coumadin with bridging with heparin drip. 06/02: Increase Coumadin to 3 mg daily. 06/03: INR slightly up from 1.0 to 1.2. Increase Coumadin to 4 mg daily. Anticipating discharge to [facility] once her INR becomes therapeutic. 06/04/2019-INR today is 1.65 presently on Coumadin 4 mg p.o. daily she is also on heparin drip. Plan is to bring the INR to more than 2 for 2 continuous days at least then will stop the heparin drip. 06/05/2019-INR today is 2.01 presently on Coumadin 4 mg p.o. nightly and also on a heparin drip plan is to discontinue the heparin drip from today and to check PT/INR in am. (2) Acute on chronic renal failure Is this a current diagnosis for this admission?: Yes Plan: P creatinine has slightly trended down from 4.4-4.1. [place] was a known CKD for patient. Patient is making adequate urine at the moment. Will start IV fluids. As mentioned, family expressed that she has previously made the decision not to be initiated and dialysis if she progresses to ESRD. 05/29: Creatinine has trended down slightly from 4.4-4.1. Potassium down to 5.5 from 7.3. Appreciate nephrology input. 05/30: Creatinine improved to 3.2. 05/31: Creatinine trending down to 3.0. Nephrology following. 06/01: Crea down to 2.6 from 3. 06/02: Crea appears to be stabilizing at 2.5. 06/03: Creatinine down to 2.2. 06/04/2019-creatinine was improved to 2.07 admitted with creatinine of 4.4 PARUL most likely secondary to poor oral intake. Improving. 06/05/2019-patient came in with acute kidney injury initial creatinine is 4.4 improved to 2.07 yesterday creatinine today 2.18 slightly worsened compared to yesterday. Is to check the labs on daily basis. (3) Anemia Qualifiers: Anemia type: iron deficiency Is this a current diagnosis for this admission?: Yes Plan: 06/04/2019-patient's hemoglobin is 8.7 anemia of chronic disease most likely secondary to underlying CKD. 06/05/2019 patient's latest hemoglobin is 0.8 stable. Anemia of chronic disease most likely secondary to underlying CKD. (4) DM type 2 (diabetes mellitus, type 2) Qualifiers: Diabetes mellitus superintendent terminal insulin use: without superintendent terminal use Diabetes mellitus complication status: without complication Qualified Code(s): E11.9 - Type 2 diabetes mellitus without complications Is this a current diagnosis for this admission?: Yes Plan: Continue sliding scale coverage. 06/04/2019-patient blood sugar is 137 this morning plan is to continue the insulin sliding scale. 2018-patient's latest blood sugar is 19 stable plan is to continue insulin sliding scale and plan to check hemoglobin A1c. (5) Dementia Is this a current diagnosis for this admission?: Yes (6) Hyperkalemia Is this a current diagnosis for this admission?: Yes Plan: Patient does take potassium supplements at home. She got insulin, glucose and calcium regimen and Kayexalate in the ER. 05/29: Improved. Potassium down to 5.5 from 7.3. 05/30: Resolved. 06/04/2019-patient serum potassium is 4.2 hyperkalemia is resolved. 06/05/2019-hyperkalemia is resolved latest serum potassium is 4.2. - Time Time Spent with patient: 15-24 minutes Anticipated discharge: SNF
[2019-06-05] MEDS: MEGESTROL ACETATE SUSP 400 MG/10 ML UDCUP PO SCH (11:26)
[2019-06-05] MEDS: LOSARTAN POTASSIUM 50 MG TABLET PO SCH (11:26)
[2019-06-05] MEDS: SITAGLIPTIN PHOSPHATE 50 MG TABLET PO SCH (11:27)
[2019-06-05] MEDS: CALCITRIOL 0.25 MCG CAPSULE PO SCH (11:27)
[2019-06-05] MEDS: FERROUS SULFATE 325 MG TABLET PO SCH (11:27)
[2019-06-05] MEDS: NIFEDIPINE 30 MG TAB.ER.24 PO SCH (11:27)
[2019-06-05] MEDS: CALCIUM CARBONATE 500 MG TABLET PO SCH ×3 (11:27→18:05)
[2019-06-05] MEDS: POTASSIUM CHLORIDE 10 MEQ CAPSULE.ER PO SCH (11:27)
[2019-06-05] MEDS: DOCUSATE SODIUM 100 MG CAPSULE PO PRN (11:29)
[2019-06-05] MEDS: LIDOCAINE 5% (700 MG) TRANSDERMAL ADH..PATCH TOP SCH (11:31)
[2019-06-05] MEDS: ATENOLOL 50 MG TABLET PO SCH ×2 (11:43→21:09)
[2019-06-05] MEDS: INSULIN LISPRO 100 UNIT/ML 3 ML VIAL SUBCUT SCH ×4 (12:44→21:09)
[2019-06-05] MEDS: WARFARIN SODIUM 5 MG TABLET PO SCH (21:09)
[2019-06-05] MEDS: CETIRIZINE 5 MG TABLET PO SCH (21:09)
[2019-06-05] MEDS: ATORVASTATIN CALCIUM 40 MG TABLET PO SCH (21:09)
[2019-06-05] MEDS: FENOFIBRATE NANOCRYSTALLIZED 48 MG TABLET PO SCH (21:09)
[2019-06-06] MEDS: LEVOTHYROXINE SODIUM 0.1 MG TABLET PO SCH (06:04)
[2019-06-06 06:23] LABS: ABSOLUTE BASOPHILS # (AUTO) 0.1 10^3/uL (0.0-0.2); ABSOLUTE EOSINOPHILS # (AUTO) 0.3 10^3/uL (0.0-0.6); ABSOLUTE LYMPHOCYTES (AUTO) 2.4 10^3/uL (0.5-4.7); ABSOLUTE MONOCYTES (AUTO) 0.8 10^3/uL (0.1-1.4); ABSOLUTE NEUT (AUTO) 4.9 10^3/uL (1.7-8.2); EOSINOPHILS % (AUTO) 3.6 % (0-6); HEMATOCRIT 26.1 % (36.0-47.0); HEMOGLOBIN 8.7 g/dL (12.0-15.5); MEAN CORPUSCULAR HEMOGLOBIN 26.8 pg (27.0-33.4); MEAN CORPUSCULAR HGB CONC 33.2 g/dL (32.0-36.0); MEAN CORPUSCULAR VOLUME 81 fl (80-97); MONOCYTES % (AUTO) 9.8 % (3-13); PLATELET COUNT 318 10^3/uL (150-450); RED BLOOD COUNT 3.23 10^6/uL (3.72-5.28); RED CELL DISTRIBUTION WIDTH 17.3 % (11.5-14.0); SEGMENTED NEUTROPHILS % (AUTO) 57.6 % (42-78); TOTAL CELLS COUNTED % (AUTO) 100 %; WHITE BLOOD COUNT 8.5 10^3/uL (4.0-10.5)
[2019-06-06 06:26] LABS: INTERNATIONAL RATION (INR) 3.18; PROTHROMBIN TIME 33.3 SEC (11.4-15.4)
[2019-06-06 06:38] LABS: ALANINE AMINOTRANSFERASE 29 U/L (9-52); ALBUMIN 2.1 g/dL (3.5-5.0); ALKALINE PHOSPHATASE 66 U/L (38-126); ASPARTATE AMINO TRANSFERASE 22 U/L (14-36); BILIRUBIN,DIRECT 0.3 mg/dL (0.0-0.4); BILIRUBIN,TOTAL 0.3 mg/dL (0.2-1.3); BLOOD UREA NITROGEN 40 mg/dL (7-20); CALCIUM 8.3 mg/dL (8.4-10.2); GLUCOSE 165 mg/dL (75-110); POTASSIUM 4.7 mmol/L (3.6-5.0); TOTAL PROTEIN 4.4 g/dL (6.3-8.2)
[2019-06-06 06:43] LABS: ANION GAP 6 (5-19); CARBON DIOXIDE 23 mmol/L (22-30); CHLORIDE 107 mmol/L (98-107)
[2019-06-06] MEDS: INSULIN LISPRO 100 UNIT/ML 3 ML VIAL SUBCUT SCH ×4 (07:58→21:44)
[2019-06-06] MEDS: MEGESTROL ACETATE SUSP 400 MG/10 ML UDCUP PO SCH (10:17)
[2019-06-06] MEDS: ATENOLOL 50 MG TABLET PO SCH ×2 (10:18→21:43)
[2019-06-06] MEDS: NIFEDIPINE 30 MG TAB.ER.24 PO SCH (10:18)
[2019-06-06] MEDS: POTASSIUM CHLORIDE 10 MEQ CAPSULE.ER PO SCH (10:18)
[2019-06-06] MEDS: CALCIUM CARBONATE 500 MG TABLET PO SCH ×3 (10:19→18:22)
[2019-06-06] MEDS: FERROUS SULFATE 325 MG TABLET PO SCH (10:19)
[2019-06-06] MEDS: SITAGLIPTIN PHOSPHATE 50 MG TABLET PO SCH (10:19)
[2019-06-06] MEDS: LIDOCAINE 5% (700 MG) TRANSDERMAL ADH..PATCH TOP SCH (10:19)
[2019-06-06] MEDS: CETIRIZINE 5 MG TABLET PO SCH (21:43)
[2019-06-06] MEDS: FENOFIBRATE NANOCRYSTALLIZED 48 MG TABLET PO SCH (21:43)
[2019-06-06] MEDS: ATORVASTATIN CALCIUM 40 MG TABLET PO SCH (21:44)
[2019-06-06] MEDS: PHARMACY COMMUNICATION ORDER MC SCH (21:45)
[2019-06-06 21:57] LABS: APPEARANCE,URINE TURBID; BILIRUBIN,URINE NEGATIVE (NEGATIVE); COLOR,URINE AMBER; GLUCOSE, URINE 50 mg/dL (NEGATIVE); KETONES,URINE NEGATIVE (NEGATIVE); LEUKOCYTE ESTERASE,URINE LARGE (NEGATIVE); NITRITE,URINE NEGATIVE (NEGATIVE); PROTEIN,URINE 100 mg/dL (NEGATIVE); URINE SPECIFIC GRAVITY 1.014; UROBILINOGEN,URINE NEGATIVE mg/dL (<2.0)
[2019-06-07] MEDS: LEVOTHYROXINE SODIUM 0.1 MG TABLET PO SCH (05:54)
[2019-06-07 06:24] LABS: HEMOGLOBIN 9.1 g/dL (12.0-15.5); MEAN CORPUSCULAR HEMOGLOBIN 27.5 pg (27.0-33.4); MEAN CORPUSCULAR HGB CONC 33.8 g/dL (32.0-36.0); MEAN CORPUSCULAR VOLUME 81 fl (80-97); PLATELET COUNT 349 10^3/uL (150-450); RED BLOOD COUNT 3.32 10^6/uL (3.72-5.28); RED CELL DISTRIBUTION WIDTH 16.9 % (11.5-14.0); WHITE BLOOD COUNT 8.9 10^3/uL (4.0-10.5)
[2019-06-07 06:34] LABS: INTERNATIONAL RATION (INR) 3.36; PROTHROMBIN TIME 34.8 SEC (11.4-15.4)
[2019-06-07] MEDS: INSULIN LISPRO 100 UNIT/ML 3 ML VIAL SUBCUT SCH ×4 (08:47→21:25)
[2019-06-07] MEDS: CALCIUM CARBONATE 500 MG TABLET PO SCH ×3 (09:23→18:39)
[2019-06-07] MEDS: FERROUS SULFATE 325 MG TABLET PO SCH (09:23)
[2019-06-07] MEDS: POTASSIUM CHLORIDE 10 MEQ CAPSULE.ER PO SCH (09:23)
[2019-06-07] MEDS: CALCITRIOL 0.25 MCG CAPSULE PO SCH (09:24)
[2019-06-07] MEDS: NIFEDIPINE 30 MG TAB.ER.24 PO SCH (09:24)
[2019-06-07] MEDS: SITAGLIPTIN PHOSPHATE 50 MG TABLET PO SCH (09:25)
[2019-06-07] MEDS: LIDOCAINE 5% (700 MG) TRANSDERMAL ADH..PATCH TOP SCH (09:25)
[2019-06-07] MEDS: MEGESTROL ACETATE SUSP 400 MG/10 ML UDCUP PO SCH (09:25)
[2019-06-07] MEDS: ATENOLOL 50 MG TABLET PO SCH ×2 (09:26→21:25)
--- NOTE | 2019-06-07 10:39 | PDOC PROGRESS REPORT ---
Subjective Progress Note for:: 06/06/19 Subjective:: 83 year old female with a PMH of dementia, HTN, CKD 4, NIDDM type 2, COPD not on home O2, history of DEMIAN and B12 deficiency, hypothyroidism and history of GI bleed from a diverticular bleed who was brought in due to left leg swelling. He was found to have an acute left lower extremity DVT and was also noted to be in acute renal failure with severe hyperkalemia. 05/29: She remains cheerful and comfortable this morning. She did complain of pain when left leg was moved. Left lower extremity still appears swollen but does not appear to be worse from yesterday. No discoloration. She denies chest pain or shortness of breath. 05/30: She denies acute complaints. Creatinine continue to improve and is down to 3.2 from 4.1 yesterday. No worsening or discoloration of the left leg. 05/31: Creatinine trending down to 3.0. She denies any acute complaints. She continues to be cheerful and comfortable. No bleeding from heparin drip. Will start Coumadin today. 06/02: She continues to do well and denies acute complaints. No worsening of left leg swelling. No discoloration. Increase coumadin to 3 mg daily. Continue Coumadin with bridging with heparin drip. She will be cleared for discharge to SNF/rehab once INR is therapeutic. 06/03: No acute event overnight. No acute issues. INR slightly up from 1.0 to 1.2. Increase Coumadin to 4 mg daily. Anticipating discharge to [facility] once her INR becomes therapeutic. 06/04/2019-no acute events in the last 24 hours. Patient is presently on Coumadin 4 mg p.o. daily and also on heparin drip. INR is 1.65. Plan is to continue the heparin drip until the INR is more than 2 4 to continue to suggest. pt is waiting for placement in [facility] [place] [facility]. 06/05/2019-patient is comfortably in the bed not in distress. INR came back 2.01. Presently on a heparin drip and also on Coumadin 4 mg p.o. nightly plan is to discontinue heparin drip from today and to recheck PT/INR tomorrow. And plan to continue Coumadin 4 mg p.o. nightly. 06/06/2019-patient is comfortably in the bed not in distress. Presently on Coumadin 4 mg p.o. nightly INR came back as 3.16. Plan to hold the INR today. And to recheck tomorrow. Patient off the heparin drip. And is on Coumadin because of the DVT. Reason For Visit: EXTENSIVE DVT,ACUTE RENAL FAILURE,HYPERKALEMIA Physical Exam Vital Signs: Temp Pulse Resp BP Pulse Ox 97.7 F 66 14 145/51 H 96 06/07/19 07:53 06/07/19 07:53 06/07/19 07:53 06/07/19 07:53 06/07/19 07:53 Intake & Output 06/06/19 06/07/19 06/08/19 06:59 06:59 06:59 Intake Total 1029 1210 Balance 1029 1210 Weight 98 kg 98 kg General appearance: PRESENT: no acute distress Head exam: PRESENT: atraumatic Eye exam: PRESENT: PERRLA Mouth exam: PRESENT: dry mucosa Teeth exam: PRESENT: poor dentation Neck exam: ABSENT: carotid bruit, JVD, lymphadenopathy, thyromegaly Respiratory exam: PRESENT: clear to auscultation mychal. ABSENT: rales, rhonchi, wheezes Cardiovascular exam: PRESENT: RRR. ABSENT: diastolic murmur, rubs, systolic murmur GI/Abdominal exam: PRESENT: normal bowel sounds, soft. ABSENT: distended, guarding, mass, organolmegaly, rebound, tenderness Rectal exam: PRESENT: deferred Extremities exam: PRESENT: full ROM. ABSENT: calf tenderness, clubbing, pedal edema Neurological exam: PRESENT: alert, awake, oriented to person, oriented to place, oriented to time, oriented to situation, CN II-XII grossly intact. ABSENT: motor sensory deficit Psychiatric exam: PRESENT: appropriate affect, normal mood. ABSENT: homicidal ideation, suicidal ideation Results Laboratory Results: 06/07/19 05:57 06/06/19 05:55 06/06/19 06/06/19 06/07/19 21:25 21:25 05:57 WBC 8.9 RBC 3.32 L Hgb 9.1 L Hct 27.0 L MCV 81 MCH 27.5 MCHC 33.8 RDW 16.9 H Plt Count 349 Urine Color ABIGAIL Urine Appearance TURBID Urine pH 8.0 Ur Specific [place] 1.014 Urine Protein 100 H Urine Glucose (UA) 50 H Urine Ketones NEGATIVE Urine Blood MODERATE H Urine Nitrite NEGATIVE Ur Leukocyte Esterase LARGE H Urine WBC (Auto) >182 Urine RBC (Auto) 134 Stool Occult Blood NEGATIVE 05/28/19 05/28/19 05/28/19 14:02 14:02 16:00 Creatine Kinase Cancelled 636 H CK-MB (CK-2) 1.33 Troponin I 0.016 Impressions: Chest X-Ray 05/28/19 13:06 IMPRESSION: 1. Focal parenchymal consolidation suggested in the right lower lung zone. Head CT 05/28/19 13:06 IMPRESSION: CHRONIC CHANGES OF ATROPHY AND MICROVASCULAR ISCHEMIA. NO ACUTE PROCESS. EVIDENCE OF ACUTE STROKE: NO. Cervical Spine CT 05/28/19 13:07 IMPRESSION: Multilevel degenerate changes without evidence of acute bony abnormality of the cervical spine. Hip X-Ray 05/28/19 13:07 IMPRESSION: Decreased osseous mineralization without evidence of acute bony abnormality. Evidence of prior femoral neck gaining and left femur intramedullary hardware. Lower Extremity CT 05/28/19 14:51 IMPRESSION: 1. No fracture or dislocation of the left tibia or fibula. There is a partially imaged intramedullary nail fixation of the distal left femur. 2. Osteopenia. 3. Moderate tricompartmental arthrosis of the left knee. 4. Small nonspecific knee joint effusion. 5. Diffuse soft tissue swelling about the left lower leg. Knee X-Ray 05/29/19 00:00 IMPRESSION: Osteoarthritis Trace suprapatellar knee joint effusion No gross acute displaced fracture Assessment and Plan - Diagnosis (1) Acute deep vein thrombosis (DVT) of left lower extremity Qualifiers: Affected thrombotic vein of extremity: unspecified lower extremity distal vein Qualified Code(s): I82.4Z2 - Acute embolism and thrombosis of unspecified deep veins of left distal lower extremity Is this a current diagnosis for this admission?: Yes Plan: Continue heparin drip. No signs of bleeding. 05/31: Start Coumadin today. Bridging with IV heparin. 06/01: INR 1.0. Continue Coumadin with bridging with heparin drip. 06/02: Increase Coumadin to 3 mg daily. 06/03: INR slightly up from 1.0 to 1.2. Increase Coumadin to 4 mg daily. Anticipating discharge to [facility] [place] [facility] once her INR becomes therapeutic. 06/04/2019-INR today is 1.65 presently on Coumadin 4 mg p.o. daily she is also on heparin drip. Plan is to bring the INR to more than 2 for 2 continuous days at least then will stop the heparin drip. 06/05/2019-INR today is 2.01 presently on Coumadin 4 mg p.o. nightly and also on a heparin drip plan is to discontinue the heparin drip from today and to check PT/INR in am. 06/06/2019-INR is 3.16 on Coumadin 4 mg p.o. nightly at bedtime, heparin drip was discussed continued. To repeat the PT/INR tomorrow. To hold Coumadin. (2) Acute on chronic renal failure Is this a current diagnosis for this admission?: Yes Plan: P creatinine has slightly trended down from 4.4-4.1. [place] was a known CKD for patient. Patient is making adequate urine at the moment. Will start IV fluids. As mentioned, family expressed that she has previously made the decision not to be initiated and dialysis if she progresses to ESRD. 05/29: Creatinine has trended down slightly from 4.4-4.1. Potassium down to 5.5 from 7.3. Appreciate nephrology input. 05/30: Creatinine improved to 3.2. 05/31: Creatinine trending down to 3.0. Nephrology following. 06/01: Crea down to 2.6 from 3. 06/02: Crea appears to be stabilizing at 2.5. 06/03: Creatinine down to 2.2. 06/04/2019-creatinine was improved to 2.07 admitted with creatinine of 4.4 PARUL most likely secondary to poor oral intake. Improving. 06/05/2019-patient came in with acute kidney injury initial creatinine is 4.4 improved to 2.07 yesterday creatinine today 2.18 slightly worsened compared to yesterday. Is to check the labs on daily basis. 06/06/2019-patient came in with acute on chronic kidney injury on admission creatinine was 4.4 it is improved to 2.29. Plan is to continue to closely monitor the labs. (3) Anemia Qualifiers: Anemia type: iron deficiency Is this a current diagnosis for this admission?: Yes Plan: 06/04/2019-patient's hemoglobin is 8.7 anemia of chronic disease most likely se[place] nd[place] to underlying CKD. 06/05/2019 patient's latest hemoglobin is 8.8 stable. Anemia of chronic disease most likely secondary to underlying CKD. 06/06/2019-patient's latest hemoglobin is 9.1 stable. Plan is to continue to monitor the hemoglobin on daily basis. (4) DM type 2 (diabetes mellitus, type 2) Qualifiers: Diabetes mellitus prison insulin use: without prison use Diabetes mellitus complication status: without complication Qualified Code(s): E11.9 - Type 2 diabetes mellitus without complications Is this a current diagnosis for this admission?: Yes Plan: Continue sliding scale coverage. 06/04/2019-patient blood sugar is 137 this morning plan is to continue the insulin sliding scale. 2018-patient's latest blood sugar is 119 stable plan is to continue insulin sliding scale and plan to check hemoglobin A1c. 06/06/2019-patient's latest blood sugar is 139. Plan to check hemoglobin A1c and continue the present management. (5) Dementia Is this a current diagnosis for this admission?: Yes (6) Hyperkalemia Is this a current diagnosis for this admission?: Yes - Time Time Spent with patient: 25-34 minutes Medications reviewed and adjusted accordingly: Yes Anticipated discharge: SNF
--- NOTE | 2019-06-07 10:43 | PDOC PROGRESS REPORT ---
Subjective Progress Note for:: 06/07/19 Subjective:: 83 year old female with a PMH of dementia, HTN, CKD 4, NIDDM type 2, COPD not on home O2, history of DEMIAN and B12 deficiency, hypothyroidism and history of GI bleed from a diverticular bleed who was brought in due to left leg swelling. He was found to have an acute left lower extremity DVT and was also noted to be in acute renal failure with severe hyperkalemia. 05/29: She remains cheerful and comfortable this morning. She did complain of pain when left leg was moved. Left lower extremity still appears swollen but does not appear to be worse from yesterday. No discoloration. She denies chest pain or shortness of breath. 05/30: She denies acute complaints. Creatinine continue to improve and is down to 3.2 from 4.1 yesterday. No worsening or discoloration of the left leg. 05/31: Creatinine trending down to 3.0. She denies any acute complaints. She continues to be cheerful and comfortable. No bleeding from heparin drip. Will start Coumadin today. 06/02: She continues to do well and denies acute complaints. No worsening of left leg swelling. No discoloration. Increase coumadin to 3 mg daily. Continue Coumadin with bridging with heparin drip. She will be cleared for discharge to SNF/rehab once INR is therapeutic. 06/03: No acute event overnight. No acute issues. INR slightly up from 1.0 to 1.2. Increase Coumadin to 4 mg daily. Anticipating discharge to [place] once her INR becomes therapeutic. 06/04/2019-no acute events in the last 24 hours. Patient is presently on Coumadin 4 mg p.o. daily and also on heparin drip. INR is 1.65. Plan is to continue the heparin drip until the INR is more than 2 4 to continue to suggest. pt is waiting for placement in [place]. 06/05/2019-patient is comfortably in the bed not in distress. INR came back 2.01. Presently on a heparin drip and also on Coumadin 4 mg p.o. nightly plan is to discontinue heparin drip from today and to recheck PT/INR tomorrow. And plan to continue Coumadin 4 mg p.o. nightly. 06/06/2019-patient is comfortably in the bed not in distress. Presently on Coumadin 4 mg p.o. nightly INR came back as 3.16. Plan to hold the INR today. And to recheck tomorrow. Patient off the heparin drip. And is on Coumadin because of the DVT. 06/07/2019-patient is comfortably in the bed not communicative much. Not in distress. INR came back as 3.36. Coumadin is on hold from yesterday. Heparin drip was also on hold. Plan is to check PT/INR tomorrow if it is between 2-3 probably discharge her to [facility]dc. Reason For Visit: EXTENSIVE DVT,ACUTE RENAL FAILURE,HYPERKALEMIA Physical Exam Vital Signs: Temp Pulse Resp BP Pulse Ox 97.7 F 66 14 145/51 H 96 06/07/19 07:53 06/07/19 07:53 06/07/19 07:53 06/07/19 07:53 06/07/19 07:53 Intake & Output 06/06/19 06/07/19 06/08/19 06:59 06:59 06:59 Intake Total 1029 1210 Balance 1029 1210 Weight 98 kg 98 kg General appearance: PRESENT: no acute distress Head exam: PRESENT: atraumatic Eye exam: PRESENT: PERRLA Mouth exam: PRESENT: moist, tongue midline Teeth exam: PRESENT: poor dentation Neck exam: ABSENT: carotid bruit, JVD, lymphadenopathy, thyromegaly Respiratory exam: PRESENT: clear to auscultation mychal. ABSENT: rales, rhonchi, wheezes Cardiovascular exam: PRESENT: RRR. ABSENT: diastolic murmur, rubs, systolic murmur GI/Abdominal exam: PRESENT: normal bowel sounds, soft. ABSENT: distended, guarding, mass, organolmegaly, rebound, tenderness Rectal exam: PRESENT: deferred Extremities exam: PRESENT: full ROM. ABSENT: calf tenderness, clubbing, pedal edema Neurological exam: PRESENT: alert, awake, oriented to person, oriented to place, oriented to time, oriented to situation, CN II-XII grossly intact. ABSENT: motor sensory deficit Psychiatric exam: PRESENT: appropriate affect, normal mood. ABSENT: homicidal ideation, suicidal ideation Results Laboratory Results: 06/07/19 05:57 06/06/19 05:55 06/06/19 06/06/19 06/07/19 21:25 21:25 05:57 WBC 8.9 RBC 3.32 L Hgb 9.1 L Hct 27.0 L MCV 81 MCH 27.5 MCHC 33.8 RDW 16.9 H Plt Count 349 Urine Color ABIGAIL Urine Appearance TURBID Urine pH 8.0 Ur Specific [place] 1.014 Urine Protein 100 H Urine Glucose (UA) 50 H Urine Ketones NEGATIVE Urine Blood MODERATE H Urine Nitrite NEGATIVE Ur Leukocyte Esterase LARGE H Urine WBC (Auto) >182 Urine RBC (Auto) 134 Stool Occult Blood NEGATIVE 05/28/19 05/28/19 05/28/19 14:02 14:02 16:00 Creatine Kinase Cancelled 636 H CK-MB (CK-2) 1.33 Troponin I 0.016 Impressions: Chest X-Ray 05/28/19 13:06 IMPRESSION: 1. Focal parenchymal consolidation suggested in the right lower lung zone. Head CT 05/28/19 13:06 IMPRESSION: CHRONIC CHANGES OF ATROPHY AND MICROVASCULAR ISCHEMIA. NO ACUTE PROCESS. EVIDENCE OF ACUTE STROKE: NO. Cervical Spine CT 05/28/19 13:07 IMPRESSION: Multilevel degenerate changes without evidence of acute bony abnormality of the cervical spine. Hip X-Ray 05/28/19 13:07 IMPRESSION: Decreased osseous mineralization without evidence of acute bony abnormality. Evidence of prior femoral neck gaining and left femur intramedullary hardware. Lower Extremity CT 05/28/19 14:51 IMPRESSION: 1. No fracture or dislocation of the left tibia or fibula. There is a partially imaged intramedullary nail fixation of the distal left femur. 2. Osteopenia. 3. Moderate tricompartmental arthrosis of the left knee. 4. Small nonspecific knee joint effusion. 5. Diffuse soft tissue swelling about the left lower leg. Knee X-Ray 05/29/19 00:00 IMPRESSION: Osteoarthritis Trace suprapatellar knee joint effusion No gross acute displaced fracture Assessment and Plan - Diagnosis (1) Acute deep vein thrombosis (DVT) of left lower extremity Qualifiers: Affected thrombotic vein of extremity: unspecified lower extremity distal vein Qualified Code(s): I82.4Z2 - Acute embolism and thrombosis of unspecified deep veins of left distal lower extremity Is this a current diagnosis for this admission?: Yes Plan: Continue heparin drip. No signs of bleeding. 05/31: Start Coumadin today. Bridging with IV heparin. 06/01: INR 1.0. Continue Coumadin with bridging with heparin drip. 06/02: Increase Coumadin to 3 mg daily. 06/03: INR slightly up from 1.0 to 1.2. Increase Coumadin to 4 mg daily. Anticipating discharge to [place] once her INR becomes therapeutic. 06/04/2019-INR today is 1.65 presently on Coumadin 4 mg p.o. daily she is also on heparin drip. Plan is to bring the INR to more than 2 for 2 continuous days at least then will stop the heparin drip. 06/05/2019-INR today is 2.01 presently on Coumadin 4 mg p.o. nightly and also on a heparin drip plan is to discontinue the heparin drip from today and to check PT/INR in am. 06/06/2019-INR is 3.16 on Coumadin 4 mg p.o. nightly at bedtime, heparin drip was discussed continued. To repeat the PT/INR tomorrow. To hold Coumadin. 06/07/2019-INR today is 3.36 Coumadin is on hold. To check PT/INR tomorrow. Receiving Coumadin for left lower leg DVT. (2) Acute on chronic renal failure Is this a current diagnosis for this admission?: Yes Plan: P creatinine has slightly trended down from 4.4-4.1. [place] was a known CKD for patient. Patient is making adequate urine at the moment. Will start IV fluids. As mentioned, family expressed that she has previously made the decision not to be initiated and dialysis if she progresses to ESRD. 05/29: Creatinine has trended down slightly from 4.4-4.1. Potassium down to 5.5 from 7.3. Appreciate nephrology input. 05/30: Creatinine improved to 3.2. 05/31: Creatinine trending down to 3.0. Nephrology following. 06/01: Crea down to 2.6 from 3. 06/02: Crea appears to be stabilizing at 2.5. 06/03: Creatinine down to 2.2. 06/04/2019-creatinine was improved to 2.07 admitted with creatinine of 4.4 PARUL most likely secondary to poor oral intake. Improving. 06/05/2019-patient came in with acute kidney injury initial creatinine is 4.4 improved to 2.07 yesterday creatinine today 2.18 slightly worsened compared to yesterday. Is to check the labs on daily basis. 06/06/2019-patient came in with acute on chronic kidney injury on admission creatinine was 4.4 it is improved to 2.29. Plan is to continue to closely m onitor the labs. 06/07/2019-patient came in with acute on chronic kidney injury with creatinine of 4.4 latest creatinine is 2.29 plan it is repeat the labs tomorrow. (3) Anemia Qualifiers: Anemia type: iron deficiency Is this a current diagnosis for this admission?: Yes Plan: 06/04/2019-patient's hemoglobin is 8.7 anemia of chronic disease most likely secondary to underlying CKD. 06/05/2019 patient's latest hemoglobin is 8.8 stable. Anemia of chronic disease most likely secondary to underlying CKD. 06/06/2019-patient's latest hemoglobin is 8.7 stable. Plan is to continue to monitor the hemoglobin on daily basis. 06/07/2019-patient's latest hemoglobin is 9.1. Plan is to continue the present management. Anemia of chronic disease most likely secondary to CKD. (4) DM type 2 (diabetes mellitus, type 2) Qualifiers: Diabetes mellitus fci insulin use: without fci use Diabetes mellitus complication status: without complication Qualified Code(s): E11.9 - Type 2 diabetes mellitus without complications Is this a current diagnosis for this admission?: Yes Plan: Continue sliding scale coverage. 06/04/2019-patient blood sugar is 137 this morning plan is to continue the insulin sliding scale. 2018-patient's latest blood sugar is 119 stable plan is to continue insulin sliding scale and plan to check hemoglobin A1c. 06/06/2019-patient's latest blood sugar is 129. Plan to check hemoglobin A1c and continue the present management. 06/07/2019-patient latest blood sugar is 139. Is to continue the present management. (5) Dementia Is this a current diagnosis for this admission?: Yes (6) Hyperkalemia Is this a current diagnosis for this admission?: Yes - Time Time Spent with patient: 25-34 minutes Medications reviewed and adjusted accordingly: Yes Anticipated discharge: Home
[2019-06-07] MEDS: CETIRIZINE 5 MG TABLET PO SCH (21:25)
[2019-06-07] MEDS: FENOFIBRATE NANOCRYSTALLIZED 48 MG TABLET PO SCH (21:25)
[2019-06-07] MEDS: ATORVASTATIN CALCIUM 40 MG TABLET PO SCH (21:25)
[2019-06-07] MEDS: PHARMACY COMMUNICATION ORDER MC SCH (21:29)
[2019-06-07] MEDS ORDERED: WARFARIN SODIUM 4 MG TABLET PO SCH (22:00)
[2019-06-08 05:11] LABS: PROTHROMBIN TIME 33.4 SEC (11.4-15.4)
[2019-06-08] MEDS: LEVOTHYROXINE SODIUM 0.1 MG TABLET PO SCH (05:37)
[2019-06-08] MEDS: INSULIN LISPRO 100 UNIT/ML 3 ML VIAL SUBCUT SCH ×4 (09:13→21:42)
[2019-06-08] MEDS: ATENOLOL 50 MG TABLET PO SCH ×2 (09:18→21:39)
[2019-06-08] MEDS: NIFEDIPINE 30 MG TAB.ER.24 PO SCH (09:18)
[2019-06-08] MEDS: SITAGLIPTIN PHOSPHATE 50 MG TABLET PO SCH (09:18)
[2019-06-08] MEDS: LIDOCAINE 5% (700 MG) TRANSDERMAL ADH..PATCH TOP SCH (09:19)
[2019-06-08] MEDS: CALCIUM CARBONATE 500 MG TABLET PO SCH ×3 (09:19→16:52)
[2019-06-08] MEDS: FERROUS SULFATE 325 MG TABLET PO SCH (09:19)
[2019-06-08] MEDS: MEGESTROL ACETATE SUSP 400 MG/10 ML UDCUP PO SCH (09:19)
[2019-06-08] MEDS: POTASSIUM CHLORIDE 10 MEQ CAPSULE.ER PO SCH (09:19)
--- NOTE | 2019-06-08 12:56 | PDOC PROGRESS REPORT ---
Subjective Progress Note for:: 06/08/19 Subjective:: 83 year old female with a PMH of dementia, HTN, CKD 4, NIDDM type 2, COPD not on home O2, history of DEMIAN and B12 deficiency, hypothyroidism and history of GI bleed from a diverticular bleed who was brought in due to left leg swelling. He was found to have an acute left lower extremity DVT and was also noted to be in acute renal failure with severe hyperkalemia. 05/29: She remains cheerful and comfortable this morning. She did complain of pain when left leg was moved. Left lower extremity still appears swollen but does not appear to be worse from yesterday. No discoloration. She denies chest pain or shortness of breath. 05/30: She denies acute complaints. Creatinine continue to improve and is down to 3.2 from 4.1 yesterday. No worsening or discoloration of the left leg. 05/31: Creatinine trending down to 3.0. She denies any acute complaints. She continues to be cheerful and comfortable. No bleeding from heparin drip. Will start Coumadin today. 06/02: She continues to do well and denies acute complaints. No worsening of left leg swelling. No discoloration. Increase coumadin to 3 mg daily. Continue Coumadin with bridging with heparin drip. She will be cleared for discharge to SNF/rehab once INR is therapeutic. 06/03: No acute event overnight. No acute issues. INR slightly up from 1.0 to 1.2. Increase Coumadin to 4 mg daily. Anticipating discharge to [facility] once her INR becomes therapeutic. 06/04/2019-no acute events in the last 24 hours. Patient is presently on Coumadin 4 mg p.o. daily and also on heparin drip. INR is 1.65. Plan is to continue the heparin drip until the INR is more than 2 4 to continue to suggest. pt is waiting for placement in [facility] group [facility]. 06/05/2019-patient is comfortably in the bed not in distress. INR came back 2.01. Presently on a heparin drip and also on Coumadin 4 mg p.o. nightly plan is to discontinue heparin drip from today and to recheck PT/INR tomorrow. And plan to continue Coumadin 4 mg p.o. nightly. 06/06/2019-patient is comfortably in the bed not in distress. Presently on Coumadin 4 mg p.o. nightly INR came back as 3.16. Plan to hold the INR today. And to recheck tomorrow. Patient off the heparin drip. And is on Coumadin because of the DVT. 06/07/2019-patient is comfortably in the bed not communicative much. Not in distress. INR came back as 3.36. Coumadin is on hold from yesterday. Heparin drip was also on hold. Plan is to check PT/INR tomorrow if it is between 2-3 probably discharge her to group home. 06/08/2019-is comfortable in the bed not in distress. Family members at bedside they happy with the care so far. PT/INR today is 3.2 plan is to continue to hold warfarin and recheck the PT/INR tomorrow. If the INR is between 2-3 probably will discharge her to group home either tomorrow or Monday. Reason For Visit: EXTENSIVE DVT,ACUTE RENAL FAILURE,HYPERKALEMIA Physical Exam Vital Signs: Temp Pulse Resp BP Pulse Ox 98.2 F 66 14 148/58 H 99 06/08/19 11:30 06/08/19 11:30 06/08/19 11:30 06/08/19 11:30 06/08/19 11:30 Intake & Output 06/07/19 06/08/19 06/09/19 06:59 06:59 06:59 Intake Total 1210 360 Balance 1210 360 Weight 98 kg 98.3 kg General appearance: ABSENT: no acute distress Head exam: PRESENT: atraumatic Eye exam: PRESENT: PERRLA Mouth exam: PRESENT: moist, tongue midline Neck exam: ABSENT: carotid bruit, JVD, lymphadenopathy, thyromegaly Respiratory exam: PRESENT: decreased breath sounds Cardiovascular exam: PRESENT: RRR. ABSENT: diastolic murmur, rubs, systolic murmur Rectal exam: PRESENT: deferred Extremities exam: PRESENT: full ROM. ABSENT: calf tenderness, clubbing, pedal edema Neurological exam: PRESENT: alert, awake, oriented to person, oriented to place, oriented to time, oriented to situation, CN II-XII grossly intact. ABSENT: motor sensory deficit Psychiatric exam: PRESENT: appropriate affect, normal mood. ABSENT: homicidal ideation, suicidal ideation Results Laboratory Results: 06/07/19 05:57 06/06/19 05:55 05/28/19 05/28/19 05/28/19 14:02 14:02 16:00 Creatine Kinase Cancelled 636 H CK-MB (CK-2) 1.33 Troponin I 0.016 Impressions: Chest X-Ray 05/28/19 13:06 IMPRESSION: 1. Focal parenchymal consolidation suggested in the right lower lung zone. Head CT 05/28/19 13:06 IMPRESSION: CHRONIC CHANGES OF ATROPHY AND MICROVASCULAR ISCHEMIA. NO ACUTE PROCESS. EVIDENCE OF ACUTE STROKE: NO. Cervical Spine CT 05/28/19 13:07 IMPRESSION: Multilevel degenerate changes without evidence of acute bony abnormality of the cervical spine. Hip X-Ray 05/28/19 13:07 IMPRESSION: Decreased osseous mineralization without evidence of acute bony abnormality. Evidence of prior femoral neck gaining and left femur intramedullary hardware. Lower Extremity CT 05/28/19 14:51 IMPRESSION: 1. No fracture or dislocation of the left tibia or fibula. There is a partially imaged intramedullary nail fixation of the distal left femur. 2. Osteopenia. 3. Moderate tricompartmental arthrosis of the left knee. 4. Small nonspecific knee joint effusion. 5. Diffuse soft tissue swelling about the left lower leg. Knee X-Ray 05/29/19 00:00 IMPRESSION: Osteoarthritis Trace suprapatellar knee joint effusion No gross acute displaced fracture Assessment and Plan - Diagnosis (1) Acute deep vein thrombosis (DVT) of left lower extremity Qualifiers: Affected thrombotic vein of extremity: unspecified lower extremity distal vein Qualified Code(s): I82.4Z2 - Acute embolism and thrombosis of unspecified deep veins of left distal lower extremity Is this a current diagnosis for this admission?: Yes Plan: Continue heparin drip. No signs of bleeding. 05/31: Start Coumadin today. Bridging with IV heparin. 06/01: INR 1.0. Continue Coumadin with bridging with heparin drip. 06/02: Increase Coumadin to 3 mg daily. 06/03: INR slightly up from 1.0 to 1.2. Increase Coumadin to 4 mg daily. Anticipating discharge to [facility] once her INR becomes therapeutic. 06/04/2019-INR today is 1.65 presently on Coumadin 4 mg p.o. daily she is also on heparin drip. Plan is to bring the INR to more than 2 for 2 continuous days at least then will stop the heparin drip. 06/05/2019-INR today is 2.01 presently on Coumadin 4 mg p.o. nightly and also on a heparin drip plan is to discontinue the heparin drip from today and to check PT/INR in am. 06/06/2019-INR is 3.16 on Coumadin 4 mg p.o. nightly at bedtime, heparin drip was discussed continued. To repeat the PT/INR tomorrow. To hold Coumadin. 06/07/2019-INR today is 3.36 Coumadin is on hold. To check PT/INR tomorrow. Receiving Coumadin for left lower leg DVT. 06/08/2019-INR today is 3.2 Coumadin is on hold. To check PT/INR tomorrow patient is receiving Coumadin for left lower leg DVT (2) Acute on chronic renal failure Is this a current diagnosis for this admission?: Yes Plan: P creatinine has slightly trended down from 4.4-4.1. Atient was a known CKD for patient. Patient is making adequate urine at the moment. Will start IV fluids. As mentioned, family expressed that she has previously made the decision not to be initiated and dialysis if she progresses to ESRD. 05/29: Creatinine has trended down slightly from 4.4-4.1. Potassium down to 5.5 from 7.3. Appreciate nephrology input. 05/30: Creatinine improved to 3.2. 05/31: Creatinine trending down to 3.0. Nephrology following. 06/01: Crea down to 2.6 from 3. 06/02: Crea appears to be stabilizing at 2.5. 06/03: Creatinine down to 2.2. 06/04/2019-creatinine was improved to 2.07 admitted with creatinine of 4.4 PARUL most likely secondary to poor oral intake. Improving. 06/05/2019-patient came in with acute kidney injury initial creatinine is 4.4 improved to 2.07 yesterday creatinine today 2.18 slightly worsened compared to yesterday. Is to check the labs on daily basis. 06/06/2019-patient came in with acute on chronic kidney injury on admission creatinine was 4.4 it is improved to 2.29. Plan is to continue to closely monitor the labs. 06/07/2019-patient came in with acute on chronic kidney injury with creatinine of 4.4 latest creatinine is 2.29 plan it is repeat the labs tomorrow. 06/08/2019-patient came in with acute on chronic kidney injury initial creatinine is 4.4. Creatinine is 2.29 plan is to check the labs tomorrow. (3) Anemia Qualifiers: Anemia type: iron deficiency Is this a current diagnosis for this admission?: Yes Plan: 06/04/2019-patient's hemoglobin is 8.7 anemia of chronic disease most likely secondary to underlying CKD. 06/05/2019 patient's latest hemoglobin is 8.8 stable. Anemia of chronic disease most likely secondary to underlying CKD. 06/06/2019-patient's latest hemoglobin is 8.7 stable. Plan is to continue to monitor the hemoglobin on daily basis. 06/07/2019-patient's latest hemoglobin is 9.1. Plan is to continue the present management. Anemia of chronic disease most likely secondary to CKD. 06/08/2019-patient's hemoglobin is around 9.1. Anemia of chronic disease most likely secondary to underlying CKD. 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 06/04/2019-patient blood sugar is 137 this morning plan is to continue the insulin sliding scale. 2018-patient's latest blood sugar is 119 stable plan is to continue insulin sliding scale and plan to check hemoglobin A1c. 06/06/2019-patient's latest blood sugar is 129. Plan to check hemoglobin A1c and continue the present management. 06/07/2019-patient latest blood sugar is 139. Is to continue the present management. 06/08/2019-patient's latest blood sugar is 40 blood sugars are well controlled plan is to continue the present management. (5) Dementia Is this a current diagnosis for this admission?: Yes (6) Hyperkalemia Is this a current diagnosis for this admission?: Yes - Time Time Spent with patient: 25-34 minutes Medications reviewed and adjusted accordingly: Yes Anticipated discharge: SNF
[2019-06-08] MEDS: CETIRIZINE 5 MG TABLET PO SCH (21:39)
[2019-06-08] MEDS: WARFARIN SODIUM 2.5 MG TABLET PO SCH (21:39)
[2019-06-08] MEDS: WARFARIN SODIUM 1 MG TABLET PO SCH (21:39)
[2019-06-08] MEDS: ATORVASTATIN CALCIUM 40 MG TABLET PO SCH (21:39)
[2019-06-08] MEDS: FENOFIBRATE NANOCRYSTALLIZED 48 MG TABLET PO SCH (21:39)
[2019-06-08] MEDS: PHARMACY COMMUNICATION ORDER MC SCH (21:41)
[2019-06-09 05:17] LABS: ABSOLUTE BASOPHILS # (AUTO) 0.1 10^3/uL (0.0-0.2); ABSOLUTE EOSINOPHILS # (AUTO) 0.4 10^3/uL (0.0-0.6); ABSOLUTE LYMPHOCYTES (AUTO) 2.9 10^3/uL (0.5-4.7); ABSOLUTE MONOCYTES (AUTO) 0.8 10^3/uL (0.1-1.4); ABSOLUTE NEUT (AUTO) 5.4 10^3/uL (1.7-8.2); BASOPHILS % (AUTO) 0.7 % (0-2); EOSINOPHILS % (AUTO) 4.5 % (0-6); HEMATOCRIT 27.6 % (36.0-47.0); HEMOGLOBIN 9.1 g/dL (12.0-15.5); MEAN CORPUSCULAR HEMOGLOBIN 26.8 pg (27.0-33.4); MEAN CORPUSCULAR HGB CONC 33.1 g/dL (32.0-36.0); MEAN CORPUSCULAR VOLUME 81 fl (80-97); MONOCYTES % (AUTO) 8.5 % (3-13); PLATELET COUNT 361 10^3/uL (150-450); RED CELL DISTRIBUTION WIDTH 16.8 % (11.5-14.0); SEGMENTED NEUTROPHILS % (AUTO) 56.3 % (42-78); TOTAL CELLS COUNTED % (AUTO) 100 %; WHITE BLOOD COUNT 9.6 10^3/uL (4.0-10.5)
[2019-06-09 05:23] LABS: INTERNATIONAL RATION (INR) 2.81; PROTHROMBIN TIME 30.2 SEC (11.4-15.4)
[2019-06-09 05:46] LABS: ALANINE AMINOTRANSFERASE 24 U/L (9-52); ALBUMIN 2.2 g/dL (3.5-5.0); ALKALINE PHOSPHATASE 53 U/L (38-126); ASPARTATE AMINO TRANSFERASE 22 U/L (14-36); BILIRUBIN,DIRECT 0.3 mg/dL (0.0-0.4); BILIRUBIN,TOTAL 0.4 mg/dL (0.2-1.3); BLOOD UREA NITROGEN 42 mg/dL (7-20); CALCIUM 9.8 mg/dL (8.4-10.2); GLUCOSE 108 mg/dL (75-110); TOTAL PROTEIN 4.6 g/dL (6.3-8.2)
[2019-06-09 05:52] LABS: CARBON DIOXIDE 22 mmol/L (22-30); CHLORIDE 110 mmol/L (98-107)
[2019-06-09 05:56] LABS: ANION GAP 2 (5-19)
[2019-06-09] MEDS: LEVOTHYROXINE SODIUM 0.1 MG TABLET PO SCH (06:24)
[2019-06-09] MEDS: INSULIN LISPRO 100 UNIT/ML 3 ML VIAL SUBCUT SCH ×4 (08:50→22:28)
[2019-06-09] MEDS: LIDOCAINE 5% (700 MG) TRANSDERMAL ADH..PATCH TOP SCH (09:25)
[2019-06-09] MEDS: NIFEDIPINE 30 MG TAB.ER.24 PO SCH (09:25)
[2019-06-09] MEDS: ATENOLOL 50 MG TABLET PO SCH ×2 (09:26→22:22)
[2019-06-09] MEDS: SITAGLIPTIN PHOSPHATE 50 MG TABLET PO SCH (09:26)
[2019-06-09] MEDS: CALCIUM CARBONATE 500 MG TABLET PO SCH ×3 (09:26→17:35)
[2019-06-09] MEDS: FERROUS SULFATE 325 MG TABLET PO SCH (09:26)
[2019-06-09] MEDS: MEGESTROL ACETATE SUSP 400 MG/10 ML UDCUP PO SCH (09:26)
[2019-06-09] MEDS ORDERED: SODIUM POLYSTYRENE SULFONATE 15 GM/60 ML PO ONE (10:00)
[2019-06-09] MEDS ORDERED: ERGOCALCIFEROL (VITAMIN D2) 50000 UNIT (1.25 MG) CAPSULE PO SCH (10:00)
--- NOTE | 2019-06-09 11:31 | PDOC PROGRESS REPORT ---
Subjective Progress Note for:: 06/09/19 Subjective:: 83 year old female with a PMH of dementia, HTN, CKD 4, NIDDM type 2, COPD not on home O2, history of DEMIAN and B12 deficiency, hypothyroidism and history of GI bleed from a diverticular bleed who was brought in due to left leg swelling. He was found to have an acute left lower extremity DVT and was also noted to be in acute renal failure with severe hyperkalemia. 05/29: She remains cheerful and comfortable this morning. She did complain of pain when left leg was moved. Left lower extremity still appears swollen but does not appear to be worse from yesterday. No discoloration. She denies chest pain or shortness of breath. 05/30: She denies acute complaints. Creatinine continue to improve and is down to 3.2 from 4.1 yesterday. No worsening or discoloration of the left leg. 05/31: Creatinine trending down to 3.0. She denies any acute complaints. She continues to be cheerful and comfortable. No bleeding from heparin drip. Will start Coumadin today. 06/02: She continues to do well and denies acute complaints. No worsening of left leg swelling. No discoloration. Increase coumadin to 3 mg daily. Continue Coumadin with bridging with heparin drip. She will be cleared for discharge to SNF/rehab once INR is therapeutic. 06/03: No acute event overnight. No acute issues. INR slightly up from 1.0 to 1.2. Increase Coumadin to 4 mg daily. Anticipating discharge to [facility] once her INR becomes therapeutic. 06/04/2019-no acute events in the last 24 hours. Patient is presently on Coumadin 4 mg p.o. daily and also on heparin drip. INR is 1.65. Plan is to continue the heparin drip until the INR is more than 2 4 to continue to suggest. pt is waiting for placement in [facility] long term. 06/05/2019-patient is comfortably in the bed not in distress. INR came back 2.01. Presently on a heparin drip and also on Coumadin 4 mg p.o. nightly plan is to discontinue heparin drip from today and to recheck PT/INR tomorrow. And plan to continue Coumadin 4 mg p.o. nightly. 06/06/2019-patient is comfortably in the bed not in distress. Presently on Coumadin 4 mg p.o. nightly INR came back as 3.16. Plan to hold the INR today. And to recheck tomorrow. Patient off the heparin drip. And is on Coumadin because of the DVT. 06/07/2019-patient is comfortably in the bed not communicative much. Not in distress. INR came back as 3.36. Coumadin is on hold from yesterday. Heparin drip was also on hold. Plan is to check PT/INR tomorrow if it is between 2-3 probably discharge her to long term. 06/08/2019-is comfortable in the bed not in distress. Family members at bedside they happy with the care so far. PT/INR today is 3.2 plan is to continue to hold warfarin and recheck the PT/INR tomorrow. If the INR is between 2-3 probably will discharge her to long term either tomorrow or Monday. -patient is comfortably in the bed not in distress. Reason For Visit: EXTENSIVE DVT,ACUTE RENAL FAILURE,HYPERKALEMIA Physical Exam Vital Signs: Temp Pulse Resp BP Pulse Ox 97.5 F 60 18 150/66 H 99 06/09/19 08:26 06/09/19 08:26 06/09/19 08:26 06/09/19 08:26 06/09/19 08:26 Intake & Output 06/08/19 06/09/19 06/10/19 06:59 06:59 06:59 Intake Total 360 564 Output Total 1 Balance 360 563 Weight 98.3 kg 98.3 kg General appearance: PRESENT: no acute distress Head exam: PRESENT: atraumatic Eye exam: PRESENT: PERRLA Mouth exam: PRESENT: moist, tongue midline Neck exam: ABSENT: carotid bruit, JVD, lymphadenopathy, thyromegaly Respiratory exam: PRESENT: clear to auscultation mychal. ABSENT: rales, rhonchi, wheezes Cardiovascular exam: PRESENT: RRR. ABSENT: diastolic murmur, rubs, systolic murmur Pulses: PRESENT: normal dorsalis pedis pul GI/Abdominal exam: PRESENT: normal bowel sounds, soft. ABSENT: distended, guarding, mass, organolmegaly, rebound, tenderness Rectal exam: PRESENT: deferred Extremities exam: PRESENT: full ROM. ABSENT: calf tenderness, clubbing, pedal edema Neurological exam: PRESENT: alert, awake, oriented to person, oriented to place, oriented to time, oriented to situation, CN II-XII grossly intact. ABSENT: motor sensory deficit Psychiatric exam: PRESENT: appropriate affect, normal mood. ABSENT: homicidal ideation, suicidal ideation Results Laboratory Results: 06/09/19 04:51 06/09/19 06:56 06/09/19 06/09/19 06/09/19 04:51 04:51 06:56 WBC 9.6 RBC 3.40 L Hgb 9.1 L Hct 27.6 L MCV 81 MCH 26.8 L MCHC 33.1 RDW 16.8 H Plt Count 361 Seg Neutrophils % 56.3 Lymphocytes % 30.0 Monocytes % 8.5 Eosinophils % 4.5 Basophils % 0.7 Absolute Neutrophils 5.4 Absolute Lymphocytes 2.9 Absolute Monocytes 0.8 Absolute Eosinophils 0.4 Absolute Basophils 0.1 Sodium 133.7 L Potassium 6.0 H* 6.1 H* Chloride 110 H Carbon Dioxide 22 Anion Gap 2 L BUN 42 H Creatinine 2.24 H Est GFR ( Amer) 25 L Est GFR (Non-Af Amer) 21 L Glucose 108 Calcium 9.8 Magnesium 2.1 Total Bilirubin 0.4 AST 22 ALT 24 Alkaline Phosphatase 53 Total Protein 4.6 L Albumin 2.2 L 05/28/19 05/28/19 05/28/19 14:02 14:02 16:00 Creatine Kinase Cancelled 636 H CK-MB (CK-2) 1.33 Troponin I 0.016 Impressions: Chest X-Ray 05/28/19 13:06 IMPRESSION: 1. Focal parenchymal consolidation suggested in the right lower lung zone. Head CT 05/28/19 13:06 IMPRESSION: CHRONIC CHANGES OF ATROPHY AND MICROVASCULAR ISCHEMIA. NO ACUTE PROCESS. EVIDENCE OF ACUTE STROKE: NO. Cervical Spine CT 05/28/19 13:07 IMPRESSION: Multilevel degenerate changes without evidence of acute bony abnormality of the cervical spine. Hip X-Ray 05/28/19 13:07 IMPRESSION: Decreased osseous mineralization without evidence of acute bony abnormality. Evidence of prior femoral neck gaining and left femur intramedullary hardware. Lower Extremity CT 05/28/19 14:51 IMPRESSION: 1. No fracture or dislocation of the left tibia or fibula. There is a partially imaged intramedullary nail fixation of the distal left femur. 2. Osteopenia. 3. Moderate tricompartmental arthrosis of the left knee. 4. Small nonspecific knee joint effusion. 5. Diffuse soft tissue swelling about the left lower leg. Knee X-Ray 05/29/19 00:00 IMPRESSION: Osteoarthritis Trace suprapatellar knee joint effusion No gross acute displaced fracture Assessment and Plan - Diagnosis (1) Acute deep vein thrombosis (DVT) of left lower extremity Qualifiers: Affected thrombotic vein of extremity: unspecified lower extremity distal vein Qualified Code(s): I82.4Z2 - Acute embolism and thrombosis of unspecified deep veins of left distal lower extremity Is this a current diagnosis for this admission?: Yes Plan: Continue heparin drip. No signs of bleeding. 05/31: Start Coumadin today. Bridging with IV heparin. 06/01: INR 1.0. Continue Coumadin with bridging with heparin drip. 06/02: Increase Coumadin to 3 mg daily. 06/03: INR slightly up from 1.0 to 1.2. Increase Coumadin to 4 mg daily. Anticipating discharge to [facility] once her INR becomes therapeutic. 06/04/2019-INR today is 1.65 presently on Coumadin 4 mg p.o. daily she is also on heparin drip. Plan is to bring the INR to more than 2 for 2 continuous days at least then will stop the heparin drip. 06/05/2019-INR today is 2.01 presently on Coumadin 4 mg p.o. nightly and also on a heparin drip plan is to discontinue the heparin drip from today and to check PT/INR in am. 06/06/2019-INR is 3.16 on Coumadin 4 mg p.o. nightly at bedtime, heparin drip was discussed continued. To repeat the PT/INR tomorrow. To hold Coumadin. 06/07/2019-INR today is 3.36 Coumadin is on hold. To check PT/INR tomorrow. Receiving Coumadin for left lower leg DVT. 06/08/2019-INR today is 3.2 Coumadin is on hold. To check PT/INR tomorrow patient is receiving Coumadin for left lower leg DVT 06/09/2019 INR today is 2.81 pharmacy is managing the Coumadin dose. Plan is to continue the present management. pt is receiving Coumadin for left lower leg DVT. (2) Acute on chronic renal failure Is this a current diagnosis for this admission?: Yes Plan: P creatinine has slightly trended down from 4.4-4.1. Atient was a known CKD for patient. Patient is making adequate urine at the moment. Will start IV fluids. As mentioned, family expressed that she has previously made the decision not to be initiated and dialysis if she progresses to ESRD. 05/29: Creatinine has trended down slightly from 4.4-4.1. Potassium down to 5.5 from 7.3. Appreciate nephrology input. 05/30: Creatinine improved to 3.2. 05/31: Creatinine trending down to 3.0. Nephrology following. 06/01: Crea down to 2.6 from 3. 06/02: Crea appears to be stabilizing at 2.5. 06/03: Creatinine down to 2.2. 06/04/2019-creatinine was improved to 2.07 admitted with creatinine of 4.4 PARUL most likely secondary to poor oral intake. Improving. 06/05/2019-patient came in with acute kidney injury initial creatinine is 4.4 improved to 2.07 yesterday creatinine today 2.18 slightly worsened compared to yesterday. Is to check the labs on daily basis. 06/06/2019-patient came in with acute on chronic kidney injury on admission c reatinine was 4.4 it is improved to 2.29. Plan is to continue to closely monitor the labs. 06/07/2019-patient came in with acute on chronic kidney injury with creatinine of 4.4 latest creatinine is 2.29 plan it is repeat the labs tomorrow. 06/08/2019-patient came in with acute on chronic kidney injury initial creatinine is 4.4. Creatinine is 2.29 plan is to check the labs tomorrow. 06/09/2019-patient admitted with acute on chronic kidney injury serum creatinine at the time of admission is 2.4 today's creatinine is 2.24. Creatinine is continued to improve but slowly. pt is nonoliguric. (3) Anemia Qualifiers: Anemia type: iron deficiency Is this a current diagnosis for this admission?: Yes Plan: 06/04/2019-patient's hemoglobin is 8.7 anemia of chronic disease most likely secondary to underlying CKD. 06/05/2019 patient's latest hemoglobin is 8.8 stable. Anemia of chronic disease most likely secondary to underlying CKD. 06/06/2019-patient's latest hemoglobin is 8.7 stable. Plan is to continue to monitor the hemoglobin on daily basis. 06/07/2019-patient's latest hemoglobin is 9.1. Plan is to continue the present management. Anemia of chronic disease most likely secondary to CKD. 06/08/2019-patient's hemoglobin is around 9.1. Anemia of chronic disease most likely secondary to underlying CKD. 06/09/2019-patient's hemoglobin today is 9.1 stable. Plan is to continue to closely monitor the hemoglobin. (4) DM type 2 (diabetes mellitus, type 2) Qualifiers: Diabetes mellitus intermediate card tender insulin use: without intermediate card tender use Diabetes mellitus complication status: without complication Qualified Code(s): E11.9 - Type 2 diabetes mellitus without complications Is this a current diagnosis for this admission?: Yes Plan: Continue sliding scale coverage. 06/04/2019-patient blood sugar is 137 this morning plan is to continue the in sulin sliding scale. 2018-patient's latest blood sugar is 119 stable plan is to continue insu [place]ia sliding scale and plan to check hemoglobin A1c. 06/06/2019-patient's latest blood sugar is 129. Plan to check hemoglobin A1c and continue the present management. 06/07/2019-patient latest blood sugar is 139. Is to continue the present management. 06/08/2019-patient's latest blood sugar is 140 blood sugars are well controlled plan is to continue the present management. 06/09/2019-patient's latest blood sugar is 103 and 4 diagnosis plan is to continue the insulin sliding scale. (5) Dementia Is this a current diagnosis for this admission?: Yes (6) Hyperkalemia Is this a current diagnosis for this admission?: Yes Plan: Patient does take potassium supplements at home. She got insulin, glucose and calcium regimen and Kayexalate in the ER. 05/29: Improved. Potassium down to 5.5 from 7.3. 05/30: Resolved. 06/04/2019-patient serum potassium is 4.2 hyperkalemia is resolved. 06/05/2019-hyperkalemia is resolved latest serum potassium is 4.2. 06/09/2019-serum potassium 6.1 today to give Kayexalate and Veltassa. To check the potassium level this evening. - Time Time Spent with patient: 25-34 minutes Medications reviewed and adjusted accordingly: Yes Anticipated discharge: Home
[2019-06-09] MEDS ORDERED: PATIROMER 8.4 GM SUSP PACKET PO SCH (17:00)
[2019-06-09] MEDS: WARFARIN SODIUM 1 MG TABLET PO SCH (22:22)
[2019-06-09] MEDS: CETIRIZINE 5 MG TABLET PO SCH (22:23)
[2019-06-09] MEDS: FENOFIBRATE NANOCRYSTALLIZED 48 MG TABLET PO SCH (22:23)
[2019-06-09] MEDS: ATORVASTATIN CALCIUM 40 MG TABLET PO SCH (22:23)
[2019-06-09] MEDS: WARFARIN SODIUM 2.5 MG TABLET PO SCH (22:23)
[2019-06-09] MEDS: PHARMACY COMMUNICATION ORDER MC SCH (22:24)
[2019-06-09] MEDS ORDERED: SODIUM POLYSTYRENE SULFONATE 15 GM/60 ML ONE (22:26)
[2019-06-09] MEDS: SODIUM POLYSTYRENE SULFONATE 15 GM/60 ML PO SCH (22:29)
[2019-06-10 05:45] LABS: ABSOLUTE BASOPHILS # (AUTO) 0.1 10^3/uL (0.0-0.2); ABSOLUTE EOSINOPHILS # (AUTO) 0.4 10^3/uL (0.0-0.6); ABSOLUTE LYMPHOCYTES (AUTO) 2.1 10^3/uL (0.5-4.7); ABSOLUTE MONOCYTES (AUTO) 0.8 10^3/uL (0.1-1.4); ABSOLUTE NEUT (AUTO) 5.3 10^3/uL (1.7-8.2); BASOPHILS % (AUTO) 0.8 % (0-2); EOSINOPHILS % (AUTO) 4.8 % (0-6); HEMATOCRIT 27.2 % (36.0-47.0); HEMOGLOBIN 9.1 g/dL (12.0-15.5); LYMPHOCYTES % (AUTO) 24.7 % (13-45); MEAN CORPUSCULAR HEMOGLOBIN 27.2 pg (27.0-33.4); MEAN CORPUSCULAR HGB CONC 33.4 g/dL (32.0-36.0); MEAN CORPUSCULAR VOLUME 82 fl (80-97); MONOCYTES % (AUTO) 8.7 % (3-13); PLATELET COUNT 382 10^3/uL (150-450); RED BLOOD COUNT 3.34 10^6/uL (3.72-5.28); RED CELL DISTRIBUTION WIDTH 17.1 % (11.5-14.0); TOTAL CELLS COUNTED % (AUTO) 100 %; WHITE BLOOD COUNT 8.6 10^3/uL (4.0-10.5)
[2019-06-10 05:53] LABS: INTERNATIONAL RATION (INR) 3.63; PROTHROMBIN TIME 37.1 SEC (11.4-15.4)
[2019-06-10] MEDS: LEVOTHYROXINE SODIUM 0.1 MG TABLET PO SCH (05:59)
[2019-06-10 06:23] LABS: ALANINE AMINOTRANSFERASE 24 U/L (9-52); ALBUMIN 2.2 g/dL (3.5-5.0); ALKALINE PHOSPHATASE 58 U/L (38-126); ASPARTATE AMINO TRANSFERASE 23 U/L (14-36); BILIRUBIN,DIRECT 0.4 mg/dL (0.0-0.4); BILIRUBIN,TOTAL 0.4 mg/dL (0.2-1.3); BLOOD UREA NITROGEN 40 mg/dL (7-20); CALCIUM 9.3 mg/dL (8.4-10.2); GLUCOSE 129 mg/dL (75-110); POTASSIUM 4.9 mmol/L (3.6-5.0); TOTAL PROTEIN 4.6 g/dL (6.3-8.2)
[2019-06-10 06:28] LABS: ANION GAP 5 (5-19); CARBON DIOXIDE 24 mmol/L (22-30); CHLORIDE 107 mmol/L (98-107)
[2019-06-10] MEDS: INSULIN LISPRO 100 UNIT/ML 3 ML VIAL SUBCUT SCH ×4 (07:27→22:28)
[2019-06-10] MEDS: SODIUM POLYSTYRENE SULFONATE 15 GM/60 ML PO SCH (10:36)
[2019-06-10] MEDS: CALCITRIOL 0.25 MCG CAPSULE PO SCH (10:36)
[2019-06-10] MEDS: NIFEDIPINE 30 MG TAB.ER.24 PO SCH (10:36)
[2019-06-10] MEDS: FERROUS SULFATE 325 MG TABLET PO SCH (10:36)
[2019-06-10] MEDS: SITAGLIPTIN PHOSPHATE 50 MG TABLET PO SCH (10:36)
[2019-06-10] MEDS: CALCIUM CARBONATE 500 MG TABLET PO SCH ×3 (10:36→18:43)
[2019-06-10] MEDS: ATENOLOL 50 MG TABLET PO SCH ×2 (10:37→22:29)
[2019-06-10] MEDS: LIDOCAINE 5% (700 MG) TRANSDERMAL ADH..PATCH TOP SCH (10:37)
[2019-06-10] MEDS: MEGESTROL ACETATE SUSP 400 MG/10 ML UDCUP PO SCH (10:37)
--- NOTE | 2019-06-10 13:55 | PDOC TRANSFER SUMMARY ---
General - Admit/Disc Date/PCP Admission Date/Primary Care Provider: 05/28/19 17:06 DONATO KIM MD Discharge Date: 06/10/19 - Discharge Diagnosis (1) Acute deep vein thrombosis (DVT) of left lower extremity Is this a current diagnosis for this admission?: Yes Summary: Continue heparin drip. No signs of bleeding. 05/31: Start Coumadin today. Bridging with IV heparin. 06/01: INR 1.0. Continue Coumadin with bridging with heparin drip. 06/02: Increase Coumadin to 3 mg daily. 06/03: INR slightly up from 1.0 to 1.2. Increase Coumadin to 4 mg daily. Anticipating discharge to [facility] once her INR becomes therapeutic. 06/04/2019-INR today is 1.65 presently on Coumadin 4 mg p.o. daily she is also on heparin drip. Plan is to bring the INR to more than 2 for 2 continuous days at least then will stop the heparin drip. 06/05/2019-INR today is 2.01 presently on Coumadin 4 mg p.o. nightly and also on a heparin drip plan is to discontinue the heparin drip from today and to check PT/INR in am. 06/06/2019-INR is 3.16 on Coumadin 4 mg p.o. nightly at bedtime, heparin drip was discussed continued. To repeat the PT/INR tomorrow. To hold Coumadin. 06/07/2019-INR today is 3.36 Coumadin is on hold. To check PT/INR tomorrow. Receiving Coumadin for left lower leg DVT. 06/08/2019-INR today is 3.2 Coumadin is on hold. To check PT/INR tomorrow patient is receiving Coumadin for left lower leg DVT 06/09/2019 INR today is 2.81 pharmacy is managing the Coumadin dose. Plan is to continue the present management. pt is receiving Coumadin for left lower leg DVT. 06/10/2019-patient's INR today is 1.76 pharmacy adjusting the Coumadin dose. Patient is receiving Coumadin because of the left lower leg DVT. She is going back to the halfway today. (2) Acute on chronic renal failure Is this a current diagnosis for this admission?: Yes Summary: P creatinine has slightly trended down from 4.4-4.1. Atient was a known CKD for patient. Patient is making adequate urine at the moment. Will start IV fluids. As mentioned, family expressed that she has previously made the decision not to be initiated and dialysis if she progresses to ESRD. 05/29: Creatinine has trended down slightly from 4.4-4.1. Potassium down to 5.5 from 7.3. Appreciate nephrology input. 05/30: Creatinine improved to 3.2. 05/31: Creatinine trending down to 3.0. Nephrology following. 06/01: Crea down to 2.6 from 3. 06/02: Crea appears to be stabilizing at 2.5. 06/03: Creatinine down to 2.2. 06/04/2019-creatinine was improved to 2.07 admitted with creatinine of 4.4 PARUL most likely secondary to poor oral intake. Improving. 06/05/2019-patient came in with acute kidney injury initial creatinine is 4.4 improved to 2.07 yesterday creatinine today 2.18 slightly worsened compared to yesterday. Is to check the labs on daily basis. 06/06/2019-patient came in with acute on chronic kidney injury on admission creatinine was 4.4 it is improved to 2.29. Plan is to continue to closely monitor the labs. 06/07/2019-patient came in with acute on chronic kidney injury with creatinine of 4.4 latest creatinine is 2.29 plan it is repeat the labs tomorrow. 06/08/2019-patient came in with acute on chronic kidney injury initial creatinine is 4.4. Creatinine is 2.29 plan is to check the labs tomorrow. 06/09/2019-patient admitted with acute on chronic kidney injury serum creatinine at the time of admission is 2.4 today's creatinine is 2.24. Creatinine is continued to improve but slowly. pt is nonoliguric. 06/10/2019-patient admitted with acute on chronic kidney injury serum creatinine at the time of admission is 4.4 and today is 2.45 today. Probably this is her new baseline. (3) Anemia Is this a current diagnosis for this admission?: Yes Summary: 06/04/2019-patient's hemoglobin is 8.7 anemia of chronic disease most likely secondary to underlying CKD. 06/05/2019 patient's latest hemoglobin is 8.8 stable. Anemia of chronic disease most likely secondary to underlying CKD. 06/06/2019-patient's latest hemoglobin is 8.7 stable. Plan is to continue to monitor the hemoglobin on daily basis. 06/07/2019-patient's latest hemoglobin is 9.1. Plan is to continue the present management. Anemia of chronic disease most likely secondary to CKD. 06/08/2019-patient's hemoglobin is around 9.1. Anemia of chronic disease most likely secondary to underlying CKD. 06/09/2019-patient's hemoglobin today is 9.1 stable. Plan is to continue to closely monitor the hemoglobin. 06/10/2019-patient's hemoglobin is 9.1 stable. Anemia of chronic disease most likely secondary to underlying CKD. (4) DM type 2 (diabetes mellitus, type 2) Is this a current diagnosis for this admission?: Yes Summary: Continue sliding scale coverage. 06/04/2019-patient blood sugar is 137 this morning plan is to continue the insulin sliding scale. 2018-patient's latest blood sugar is 119 stable plan is to continue insulin sliding scale and plan to check hemoglobin A1c. 06/06/2019-patient's latest blood sugar is 129. Plan to check hemoglobin A1c and continue the present management. 06/07/2019-patient latest blood sugar is 139. Is to continue the present management. 06/08/2019-patient's latest blood sugar is 140 blood sugars are well controlled plan is to continue the present management. 06/09/2019-patient's latest blood sugar is 103 and 4 diagnosis plan is to continue the insulin sliding scale. 06/10/2019-patient latest blood sugar is 108 well-controlled. (5) Dementia Is this a current diagnosis for this admission?: Yes (6) Hyperkalemia Is this a current diagnosis for this admission?: Yes Summary: Patient does take potassium supplements at home. She got insulin, glucose and calcium regimen and Kayexalate in the ER. 05/29: Improved. Potassium down to 5.5 from 7.3. 05/30: Resolved. 06/04/2019-patient serum potassium is 4.2 hyperkalemia is resolved. 06/05/2019-hyperkalemia is resolved latest serum potassium is 4.2. 06/09/2019-serum potassium 6.1 today to give Kayexalate and Veltassa. To check the potassium level this evening. 06/10/2019-serum potassium is 4.9. To discontinue Kayexalate and Veltassa today. - Additional Information Resuscitation Status: Do Not Resuscitate Home Medications: Atenolol [Tenormin 50 mg Tablet] 50 mg PO BID 05/28/19 Atorvastatin Calcium [Lipitor 40 mg Tablet] 40 mg PO QHS 05/28/19 Calcitriol [Rocaltrol 0.25 mcg Capsule] 0.25 mcg PO MOWEFR@1000 05/28/19 Docusate Sodium [Colace 100 mg Capsule] 100 mg PO BID 05/28/19 Ergocalciferol (Vitamin D2) [Drisdol 50,000 unit (1.25MG) Capsule] 50,000 unit PO HOYOS@1000 05/28/19 Esomeprazole Magnesium [Nexium] 20 mg PO DAILY 05/28/19 Fenofibrate [Fenoglide] 54 mg PO QHS 05/28/19 Ferrous Sulfate [Feosol 325 mg Tablet] 325 mg PO DAILY 05/28/19 Levocetirizine Dihydrochloride [Xyzal] 5 mg PO QHS 05/28/19 Levothyroxine Sodium [Synthroid 0.1 mg Tablet] 0.1 mg PO Q6AM 05/28/19 Lidocaine [Lidoderm 5% (700 mg) Transdermal Patch] 1 patch TOP DAILY 05/28/19 Losartan Potassium [Cozaar 50 mg Tablet] 50 mg PO DAILY 05/28/19 Megestrol Acetate 10 ml PO DAILY 05/28/19 Nifedipine [Procardia XL 30 mg Tablet] 30 mg PO DAILY 05/28/19 Potassium Chloride [Klor-Con M20] 20 meq PO DAILY 05/28/19 Sitagliptin Phosphate [Januvia 50 mg Tablet] 50 mg PO DAILY 05/28/19 History of Present Illness Admission Date/PCP: 05/28/19 17:06 DONATO KIM MD History of Present Illness: SUN REMY is a 83 year old female 83 year old female with a PMH of dementia, HTN, CKD 4, NIDDM type 2, COPD not on home O2, history of DEMIAN and B12 deficiency, hypothyroidism and history of GI bleed from a diverticular bleed who was brought in due to left leg swelling. Family says that patient has baseline dementia but she was noted to be more confused than her baseline the past 2 days. She reportedly fell at home and was noted to curled up earlier today. She was also noted to have swollen left lower extremity. In the ER, patient was noted to be in acute renal failure with a creatinine of 4 and a potassium of 7.3. She does take potassium supplements at home. She was also noted to have an extensive left lower extremity DVT. Family has already expressed that she closely follows up with Dr. Jordan and she has expressed that she does not want to be initiated on any dialysis if the need arises. Family also has discussed with patient earlier and she has already been made a DNR/DNI. On encounter, patient appears very comfortable and very cheerful. She is making jokes with this provider. She denies any acute complaint aside from her left leg pain. She denies any chest pain or shortness of breath. She is saturating well on room air. Hospital Course Hospital Course: This elderly female admitted for left lower leg DVT started on Coumadin. She is also came in with PARUL and CKD kidney function is improving. No complications during the hospital stay she is going back to halfway facility today. Physical Exam Vital Signs: Temp Pulse Resp BP Pulse Ox 98.1 F 70 16 137/65 H 95 06/10/19 08:28 06/10/19 08:28 06/10/19 08:28 06/10/19 08:28 06/10/19 08:28 Intake & Output 06/09/19 06/10/19 06/11/19 06:59 06:59 06:59 Intake Total 564 Output Total 1 Balance 563 Weight 98.3 kg General appearance: PRESENT: no acute distress, cooperative Head exam: PRESENT: atraumatic Eye exam: PRESENT: PERRLA Mouth exam: PRESENT: dry mucosa Teeth exam: PRESENT: poor dentation Neck exam: ABSENT: carotid bruit, JVD, lymphadenopathy, thyromegaly Respiratory exam: PRESENT: clear to auscultation mychal. ABSENT: rales, rhonchi, w heezes Cardiovascular exam: PRESENT: RRR. ABSENT: diastolic murmur, rubs, systolic murmur GI/Abdominal exam: PRESENT: normal bowel sounds, soft. ABSENT: distended, guarding, mass, organolmegaly, rebound, tenderness Rectal exam: PRESENT: deferred Extremities exam: PRESENT: full ROM. ABSENT: calf tenderness, clubbing, pedal edema Neurological exam: PRESENT: alert, awake, oriented to person, oriented to place, oriented to time, oriented to situation, CN II-XII grossly intact. ABSENT: motor sensory deficit Psychiatric exam: PRESENT: appropriate affect, normal mood. ABSENT: homicidal ideation, suicidal ideation Results Laboratory Results: 06/10/19 05:19 06/10/19 05:19 06/09/19 06/10/19 06/10/19 14:15 05:19 05:19 WBC 8.6 RBC 3.34 L Hgb 9.1 L Hct 27.2 L MCV 82 MCH 27.2 MCHC 33.4 RDW 17.1 H Plt Count 382 Seg Neutrophils % 61.0 Lymphocytes % 24.7 Monocytes % 8.7 Eosinophils % 4.8 Basophils % 0.8 Absolute Neutrophils 5.3 Absolute Lymphocytes 2.1 Absolute Monocytes 0.8 Absolute Eosinophils 0.4 Absolute Basophils 0.1 Sodium 135.7 L Potassium 5.6 H 4.9 Chloride 107 Carbon Dioxide 24 Anion Gap 5 BUN 40 H Creatinine 2.45 H Est GFR ( Amer) 23 L Est GFR (Non-Af Amer) 19 L Glucose 129 H Calcium 9.3 Magnesium 2.0 Total Bilirubin 0.4 AST 23 ALT 24 Alkaline Phosphatase 58 Total Protein 4.6 L Albumin 2.2 L 05/28/19 05/28/19 05/28/19 14:02 14:02 16:00 Creatine Kinase Cancelled 636 H CK-MB (CK-2) 1.33 Troponin I 0.016 Impressions: Chest X-Ray 05/28/19 13:06 IMPRESSION: 1. Focal parenchymal consolidation suggested in the right lower lung zone. Head CT 05/28/19 13:06 IMPRESSION: CHRONIC CHANGES OF ATROPHY AND MICROVASCULAR ISCHEMIA. NO ACUTE PROCESS. EVIDENCE OF ACUTE STROKE: NO. Cervical Spine CT 05/28/19 13:07 IMPRESSION: Multilevel degenerate changes without evidence of acute bony abnormality of the cervical spine. Hip X-Ray 05/28/19 13:07 IMPRESSION: Decreased osseous mineralization without evidence of acute bony abnormality. Evidence of prior femoral neck gaining and left femur intramedullary hardware. Lower Extremity CT 05/28/19 14:51 IMPRESSION: 1. No fracture or dislocation of the left tibia or fibula. There is a partially imaged intramedullary nail fixation of the distal left femur. 2. Osteopenia. 3. Moderate tricompartmental arthrosis of the left knee. 4. Small nonspecific knee joint effusion. 5. Diffuse soft tissue swelling about the left lower leg. Knee X-Ray 05/29/19 00:00 IMPRESSION: Osteoarthritis Trace suprapatellar knee joint effusion No gross acute displaced fracture Transfer Plan - Time Spent with Patient Time spent with patient: Greater than 30 Minutes Qualifiers - * PATIENT BEING DISCHARGED WITH ANY OF THE FOLLOWING DIAGNOSIS: No VTE patient discharged on overlapping Therapy?: No Acute Heart Failure - Is this a Heart Failure Patient?: No Plan Time Spent: Greater than 30 Minutes
[2019-06-10] MEDS: WARFARIN SODIUM 2.5 MG TABLET PO SCH (22:26)
[2019-06-10] MEDS: ATORVASTATIN CALCIUM 40 MG TABLET PO SCH (22:26)
[2019-06-10] MEDS: PHARMACY COMMUNICATION ORDER MC SCH (22:29)
[2019-06-10] MEDS: FENOFIBRATE NANOCRYSTALLIZED 48 MG TABLET PO SCH (22:30)
[2019-06-10] MEDS: CETIRIZINE 5 MG TABLET PO SCH (22:31)
[2019-06-11] MEDS: LEVOTHYROXINE SODIUM 0.1 MG TABLET PO SCH (06:14)
[2019-06-11 06:37] LABS: PROTHROMBIN TIME 39.2 SEC (11.4-15.4)
[2019-06-11] MEDS: INSULIN LISPRO 100 UNIT/ML 3 ML VIAL SUBCUT SCH ×3 (07:32→16:34)
[2019-06-11] MEDS: FERROUS SULFATE 325 MG TABLET PO SCH (10:14)
[2019-06-11] MEDS: CALCIUM CARBONATE 500 MG TABLET PO SCH ×2 (10:14→15:26)
[2019-06-11] MEDS: SITAGLIPTIN PHOSPHATE 50 MG TABLET PO SCH (10:14)
[2019-06-11] MEDS: LIDOCAINE 5% (700 MG) TRANSDERMAL ADH..PATCH TOP SCH (10:14)
[2019-06-11] MEDS: ATENOLOL 50 MG TABLET PO SCH (10:14)
[2019-06-11] MEDS: MEGESTROL ACETATE SUSP 400 MG/10 ML UDCUP PO SCH (10:14)
[2019-06-11] MEDS: NIFEDIPINE 30 MG TAB.ER.24 PO SCH (10:14)
--- NOTE | 2019-06-11 11:37 | PDOC PROGRESS REPORT ---
Subjective Subjective:: 83 year old female with a PMH of dementia, HTN, CKD 4, NIDDM type 2, COPD not on home O2, history of DEMIAN and B12 deficiency, hypothyroidism and history of GI bleed from a diverticular bleed who was brought in due to left leg swelling. He was found to have an acute left lower extremity DVT and was also noted to be in acute renal failure with severe hyperkalemia. 05/29: She remains cheerful and comfortable this morning. She did complain of pain when left leg was moved. Left lower extremity still appears swollen but does not appear to be worse from yesterday. No discoloration. She denies chest pain or shortness of breath. 05/30: She denies acute complaints. Creatinine continue to improve and is down to 3.2 from 4.1 yesterday. No worsening or discoloration of the left leg. 05/31: Creatinine trending down to 3.0. She denies any acute complaints. She continues to be cheerful and comfortable. No bleeding from heparin drip. Will start Coumadin today. 06/02: She continues to do well and denies acute complaints. No worsening of left leg swelling. No discoloration. Increase coumadin to 3 mg daily. Continue Coumadin with bridging with heparin drip. She will be cleared for discharge to SNF/rehab once INR is therapeutic. 06/03: No acute event overnight. No acute issues. INR slightly up from 1.0 to 1.2. Increase Coumadin to 4 mg daily. Anticipating discharge to [facility] once her INR becomes therapeutic. 06/04/2019-no acute events in the last 24 hours. Patient is presently on Coumadin 4 mg p.o. daily and also on heparin drip. INR is 1.65. Plan is to continue the heparin drip until the INR is more than 2 4 to continue to suggest. pt is waiting for placement in [facility]. 06/05/2019-patient is comfortably in the bed not in distress. INR came back 2.01. Presently on a heparin drip and also on Coumadin 4 mg p.o. nightly plan is to discontinue heparin drip from today and to recheck PT/INR tomorrow. And plan to continue Coumadin 4 mg p.o. nightly. 06/06/2019-patient is comfortably in the bed not in distress. Presently on Coumadin 4 mg p.o. nightly INR came back as 3.16. Plan to hold the INR today. And to recheck tomorrow. Patient off the heparin drip. And is on Coumadin because of the DVT. 06/07/2019-patient is comfortably in the bed not communicative much. Not in d istress. INR came back as 3.36. Coumadin is on hold from yesterday. Heparin drip was also on hold. Plan is to check PT/INR tomorrow if it is between 2-3 probably discharge her to senior living. 06/08/2019-is comfortable in the bed not in distress. Family members at bedside they happy with the care so far. PT/INR today is 3.2 plan is to continue to hold warfarin and recheck the PT/INR tomorrow. If the INR is between 2-3 probably will discharge her to senior living either tomorrow or Monday. -patient is comfortably in the bed not in distress. 06/11/2019-patient is comfortably in the bed not in distress. No acute events in the last 24 hours. Waiting for February from the insurance for senior living placement. INR is 3.9 Coumadin is going to be on hold. No signs of any bleed. Reason For Visit: EXTENSIVE DVT,ACUTE RENAL FAILURE,HYPERKALEMIA Physical Exam Vital Signs: Temp Pulse Resp BP Pulse Ox 98.0 F 68 19 139/54 H 94 06/11/19 07:50 06/11/19 07:50 06/11/19 07:50 06/11/19 07:50 06/11/19 07:50 Intake & Output 06/10/19 06/11/19 06/12/19 06:59 06:59 06:59 Intake Total 420 Output Total 50 Balance 370 Weight 98.5 kg General appearance: PRESENT: no acute distress Head exam: PRESENT: atraumatic Eye exam: PRESENT: PERRLA Mouth exam: PRESENT: moist, tongue midline Teeth exam: PRESENT: poor dentation Neck exam: ABSENT: carotid bruit, JVD, lymphadenopathy, thyromegaly Respiratory exam: PRESENT: clear to auscultation mychal. ABSENT: rales, rhonchi, wheezes Cardiovascular exam: PRESENT: RRR. ABSENT: diastolic murmur, rubs, systolic mur mur GI/Abdominal exam: PRESENT: normal bowel sounds, soft. ABSENT: distended, guarding, mass, organolmegaly, rebound, tenderness Rectal exam: PRESENT: deferred Extremities exam: PRESENT: full ROM. ABSENT: calf tenderness, clubbing, pedal edema Neurological exam: PRESENT: alert, awake, oriented to person, oriented to place, oriented to time, oriented to situation, CN II-XII grossly intact. ABSENT: motor sensory deficit Results Laboratory Results: 06/10/19 05:19 06/10/19 05:19 05/28/19 05/28/19 05/28/19 14:02 14:02 16:00 Creatine Kinase Cancelled 636 H CK-MB (CK-2) 1.33 Troponin I 0.016 Impressions: Chest X-Ray 05/28/19 13:06 IMPRESSION: 1. Focal parenchymal consolidation suggested in the right lower lung zone. Head CT 05/28/19 13:06 IMPRESSION: CHRONIC CHANGES OF ATROPHY AND MICROVASCULAR ISCHEMIA. NO ACUTE PROCESS. EVIDENCE OF ACUTE STROKE: NO. Cervical Spine CT 05/28/19 13:07 IMPRESSION: Multilevel degenerate changes without evidence of acute bony abnormality of the cervical spine. Hip X-Ray 05/28/19 13:07 IMPRESSION: Decreased osseous mineralization without evidence of acute bony abnormality. Evidence of prior femoral neck gaining and left femur intramedullary hardware. Lower Extremity CT 05/28/19 14:51 IMPRESSION: 1. No fracture or dislocation of the left tibia or fibula. There is a partially imaged intramedullary nail fixation of the distal left femur. 2. Osteopenia. 3. Moderate tricompartmental arthrosis of the left knee. 4. Small nonspecific knee joint effusion. 5. Diffuse soft tissue swelling about the left lower leg. Knee X-Ray 05/29/19 00:00 IMPRESSION: Osteoarthritis Trace suprapatellar knee joint effusion No gross acute displaced fracture Assessment and Plan - Diagnosis (1) Acute deep vein thrombosis (DVT) of left lower extremity Qualifiers: Affected thrombotic vein of extremity: unspecified lower extremity distal vei n Qualified Code(s): I82.4Z2 - Acute embolism and thrombosis of unspecified deep veins of left distal lower extremity Is this a current diagnosis for this admission?: Yes Plan: Continue heparin drip. No signs of bleeding. 05/31: Start Coumadin today. Bridging with IV heparin. 06/01: INR 1.0. Continue Coumadin with bridging with heparin drip. 06/02: Increase Coumadin to 3 mg daily. 06/03: INR slightly up from 1.0 to 1.2. Increase Coumadin to 4 mg daily. Anticipating discharge to [facility] once her INR becomes therapeutic. 06/04/2019-INR today is 1.65 presently on Coumadin 4 mg p.o. daily she is also on heparin drip. Plan is to bring the INR to more than 2 for 2 continuous days at least then will stop the heparin drip. 06/05/2019-INR today is 2.01 presently on Coumadin 4 mg p.o. nightly and also on a heparin drip plan is to discontinue the heparin drip from today and to check PT/INR in am. 06/06/2019-INR is 3.16 on Coumadin 4 mg p.o. nightly at bedtime, heparin drip was discussed continued. To repeat the PT/INR tomorrow. To hold Coumadin. 06/07/2019-INR today is 3.36 Coumadin is on hold. To check PT/INR tomorrow. Receiving Coumadin for left lower leg DVT. 06/08/2019-INR today is 3.2 Coumadin is on hold. To check PT/INR tomorrow patient is receiving Coumadin for left lower leg DVT 06/09/2019 INR today is 2.81 pharmacy is managing the Coumadin dose. Plan is to continue the present management. pt is receiving Coumadin for left lower leg DVT. 06/11/2019-today's INR is 3.9 patient is on 2.5 mg of Coumadin which is going to be on hold to check PT/INR tomorrow. Patient is symptomatic. Plan is to continue the present management. (2) Acute on chronic renal failure Is this a current diagnosis for this admission?: Yes Plan: P creatinine has slightly trended down from 4.4-4.1. Atient was a known CKD for patient. Patient is making adequate urine at the moment. Will start IV fluids. As mentioned, family expressed that she has previously made the decision not to be initiated and dialysis if she progresses to ESRD. 05/29: Creatinine has trended down slightly from 4.4-4.1. Potassium down to 5.5 from 7.3. Appreciate nephrology input. 05/30: Creatinine improved to 3.2. 05/31: Creatinine trending down to 3.0. Nephrology following. 06/01: Crea down to 2.6 from 3. 06/02: Crea appears to be stabilizing at 2.5. 06/03: Creatinine down to 2.2. 06/04/2019-creatinine was improved to 2.07 admitted with creatinine of 4.4 PARUL most likely secondary to poor oral intake. Improving. 06/05/2019-patient came in with acute kidney injury initial creatinine is 4.4 improved to 2.07 yesterday creatinine today 2.18 slightly worsened compared to yesterday. Is to check the labs on daily basis. 06/06/2019-patient came in with acute on chronic kidney injury on admission creatinine was 4.4 it is improved to 2.29. Plan is to continue to closely monitor the labs. 06/07/2019-patient came in with acute on chronic kidney injury with creatinine of 4.4 latest creatinine is 2.29 plan it is repeat the labs tomorrow. 06/08/2019-patient came in with acute on chronic kidney injury initial creatinine is 4.4. Creatinine is 2.29 plan is to check the labs tomorrow. 06/09/2019-patient admitted with acute on chronic kidney injury serum creatinine at the time of admission is 2.4 today's creatinine is 2.24. Creatinine is continued to improve but slowly. pt is nonoliguric. 06/11/2019-patient admitted with acute on chronic kidney injury admission creatinine is 4.4 improved to 2.49 yesterday. Plan is to repeat the labs today. (3) Anemia Qualifiers: Anemia type: iron deficiency Is this a current diagnosis for this admission?: Yes Plan: 06/04/2019-patient's hemoglobin is 8.7 anemia of chronic disease most likely secondary to underlying CKD. 06/05/2019 patient's latest hemoglobin is 8.8 stable. Anemia of chronic disease most likely secondary to underlying CKD. 06/06/2019-patient's latest hemoglobin is 8.7 stable. Plan is to continue to monitor the hemoglobin on daily basis. 06/07/2019-patient's latest hemoglobin is 9.1. Plan is to continue the present management. Anemia of chronic disease most likely secondary to CKD. 06/08/2019-patient's hemoglobin is around 9.1. Anemia of chronic disease most likely secondary to underlying CKD. 06/09/2019-patient's hemoglobin today is 9.1 stable. Plan is to continue to closely monitor the hemoglobin. 06/11/2019-patient's hemoglobin is 9.1 stable. Plan is to continue the present management. (4) DM type 2 (diabetes mellitus, type 2) Qualifiers: Diabetes mellitus termite treater insulin use: without half-way use Diabetes mellitus complication status: without complication Qualified Code(s): E11.9 - Type 2 diabetes mellitus without complications Is this a current diagnosis for this admission?: Yes Plan: Continue sliding scale coverage. 06/04/2019-patient blood sugar is 137 this morning plan is to continue the insulin sliding scale. 2018-patient's latest blood sugar is 119 stable plan is to continue insulin sliding scale and plan to check hemoglobin A1c. 06/06/2019-patient's latest blood sugar is 129. Plan to check hemoglobin A1c and continue the present management. 06/07/2019-patient latest blood sugar is 139. Is to continue the present management. 06/08/2019-patient's latest blood sugar is 140 blood sugars are well controlled plan is to continue the present management. 06/09/2019-patient's latest blood sugar is 103 and 4 diagnosis plan is to continue the insulin sliding scale. 06/11/2019-patient blood sugar is around 100 plan is to continue the present management. (5) Dementia Is this a current diagnosis for this admission?: Yes (6) Hyperkalemia Is this a current diagnosis for this admission?: Yes - Time Time Spent with patient: 25-34 minutes Medications reviewed and adjusted accordingly: Yes Anticipated discharge: SNF
--- NOTE | 2019-06-11 14:26 | PDOC TRANSFER SUMMARY ---
General - Admit/Disc Date/PCP Admission Date/Primary Care Provider: 05/28/19 17:06 DONATO KIM MD Discharge Date: 12/12/18 - Discharge Diagnosis (1) Acute deep vein thrombosis (DVT) of left lower extremity Is this a current diagnosis for this admission?: Yes Summary: Continue heparin drip. No signs of bleeding. 05/31: Start Coumadin today. Bridging with IV heparin. 06/01: INR 1.0. Continue Coumadin with bridging with heparin drip. 06/02: Increase Coumadin to 3 mg daily. 06/03: INR slightly up from 1.0 to 1.2. Increase Coumadin to 4 mg daily. Anticipating discharge to [facility] once her INR becomes therapeutic. 06/04/2019-INR today is 1.65 presently on Coumadin 4 mg p.o. daily she is also on heparin drip. Plan is to bring the INR to more than 2 for 2 continuous days at least then will stop the heparin drip. 06/05/2019-INR today is 2.01 presently on Coumadin 4 mg p.o. nightly and also on a heparin drip plan is to discontinue the heparin drip from today and to check PT/INR in am. 06/06/2019-INR is 3.16 on Coumadin 4 mg p.o. nightly at bedtime, heparin drip was discussed continued. To repeat the PT/INR tomorrow. To hold Coumadin. 06/07/2019-INR today is 3.36 Coumadin is on hold. To check PT/INR tomorrow. Receiving Coumadin for left lower leg DVT. 06/08/2019-INR today is 3.2 Coumadin is on hold. To check PT/INR tomorrow patient is receiving Coumadin for left lower leg DVT 06/09/2019 INR today is 2.81 pharmacy is managing the Coumadin dose. Plan is to continue the present management. pt is receiving Coumadin for left lower leg DVT. 06/10/2019-patient's INR today is 1.76 pharmacy adjusting the Coumadin dose. Patient is receiving Coumadin because of the left lower leg DVT. She is going back to the senior care today. 06/11/2019-patient is comfortably in the bed not in distress. No acute events in the last 24 hours. Waiting for February from the insurance for senior care placement. INR is 3.9 Coumadin is going to be on hold. No signs of any bleed. (2) Acute on chronic renal failure Is this a current diagnosis for this admission?: Yes Summary: P creatinine has slightly trended down from 4.4-4.1. [place] was a known CKD for patient. Patient is making adequate urine at the moment. Will start IV fluids. As mentioned, family expressed that she has previously made the decision not to be initiated and dialysis if she progresses to ESRD. 05/29: Creatinine has trended down slightly from 4.4-4.1. Potassium down to 5.5 from 7.3. Appreciate nephrology input. 05/30: Creatinine improved to 3.2. 05/31: Creatinine trending down to 3.0. Nephrology following. 06/01: Crea down to 2.6 from 3. 06/02: Crea appears to be stabilizing at 2.5. 06/03: Creatinine down to 2.2. 06/04/2019-creatinine was improved to 2.07 admitted with creatinine of 4.4 PARUL most likely secondary to poor oral intake. Improving. 06/05/2019-patient came in with acute kidney injury initial creatinine is 4.4 improved to 2.07 yesterday creatinine today 2.18 slightly worsened compared to yesterday. Is to check the labs on daily basis. 06/06/2019-patient came in with acute on chronic kidney injury on admission creatinine was 4.4 it is improved to 2.29. Plan is to continue to closely monitor the labs. 06/07/2019-patient came in with acute on chronic kidney injury with creatinine of 4.4 latest creatinine is 2.29 plan it is repeat the labs tomorrow. 06/08/2019-patient came in with acute on chronic kidney injury initial creatinine is 4.4. Creatinine is 2.29 plan is to check the labs tomorrow. 06/09/2019-patient admitted with acute on chronic kidney injury serum creatinine at the time of admission is 2.4 today's creatinine is 2.24. Creatinine is continued to improve but slowly. pt is nonoliguric. 06/11/2019-patient admitted with acute on chronic kidney injury admission creatinine is 4.4 improved to 2.49 yesterday. Plan is to repeat the labs today. (3) Anemia Is this a current diagnosis for this admission?: Yes Summary: 06/04/2019-patient's hemoglobin is 8.7 anemia of chronic disease most likely secondary to underlying CKD. 06/05/2019 patient's latest hemoglobin is 8.8 stable. Anemia of chronic disease most likely secondary to underlying CKD. 06/06/2019-patient's latest hemoglobin is 8.7 stable. Plan is to continue to monitor the hemoglobin on daily basis. 06/07/2019-patient's latest hemoglobin is 9.1. Plan is to continue the present management. Anemia of chronic disease most likely secondary to CKD. 06/08/2019-patient's hemoglobin is around 9.1. Anemia of chronic disease most likely secondary to underlying CKD. 06/09/2019-patient's hemoglobin today is 9.1 stable. Plan is to continue to closely monitor the hemoglobin. 06/11/2019-patient's hemoglobin is 9.1 stable. Plan is to continue the present management. (4) DM type 2 (diabetes mellitus, type 2) Is this a current diagnosis for this admission?: Yes Summary: Continue sliding scale coverage. 06/04/2019-patient blood sugar is 137 this morning plan is to continue the i nsulin sliding scale. 2018-patient's latest blood sugar is 119 stable plan is to continue ins ulin sliding scale and plan to check hemoglobin A1c. 06/06/2019-patient's latest blood sugar is 129. Plan to check hemoglobin A1c and continue the present management. 06/07/2019-patient latest blood sugar is 139. Is to continue the present management. 06/08/2019-patient's latest blood sugar is 140 blood sugars are well controlled plan is to continue the present management. 06/09/2019-patient's latest blood sugar is 103 and 4 diagnosis plan is to continue the insulin sliding scale. 06/11/2019-patient blood sugar is around 100 plan is to continue the present management. (5) Dementia Is this a current diagnosis for this admission?: Yes (6) Hyperkalemia Is this a current diagnosis for this admission?: Yes - Additional Information Resuscitation Status: Do Not Resuscitate Discharge Diet: Cardiac Discharge Activity: Activity As Tolerated Home Medications: Atenolol [Tenormin 50 mg Tablet] 50 mg PO BID 05/28/19 Atorvastatin Calcium [Lipitor 40 mg Tablet] 40 mg PO QHS 05/28/19 Calcitriol [Rocaltrol 0.25 mcg Capsule] 0.25 mcg PO MOWEFR@1000 05/28/19 Docusate Sodium [Colace 100 mg Capsule] 100 mg PO BID 05/28/19 Ergocalciferol (Vitamin D2) [Drisdol 50,000 unit (1.25MG) Capsule] 50,000 unit PO HOYOS@1000 05/28/19 Esomeprazole Magnesium [Nexium] 20 mg PO DAILY 05/28/19 Fenofibrate [Fenoglide] 54 mg PO QHS 05/28/19 Ferrous Sulfate [Feosol 325 mg Tablet] 325 mg PO DAILY 05/28/19 Levocetirizine Dihydrochloride [Xyzal] 5 mg PO QHS 05/28/19 Levothyroxine Sodium [Synthroid 0.1 mg Tablet] 0.1 mg PO Q6AM 05/28/19 Lidocaine [Lidoderm 5% (700 mg) Transdermal Patch] 1 patch TOP DAILY 05/28/19 Losartan Potassium [Cozaar 50 mg Tablet] 50 mg PO DAILY 05/28/19 Megestrol Acetate 10 ml PO DAILY 05/28/19 Nifedipine [Procardia XL 30 mg Tablet] 30 mg PO DAILY 05/28/19 Sitagliptin Phosphate [Januvia 50 mg Tablet] 50 mg PO DAILY 05/28/19 Warfarin Sodium [Coumadin 2.5 mg Tablet] 2.5 mg PO QHS tablet 06/10/19 History of Present Illness Admission Date/PCP: 05/28/19 17:06 DONATO KIM MD 83 year old female with a PMH of dementia, HTN, CKD 4, NIDDM type 2, COPD not on home O2, history of DEMIAN and B12 deficiency, hypothyroidism and history of GI bleed from a diverticular bleed who was brought in due to left leg swelling. Family says that patient has baseline dementia but she was noted to be more confused than her baseline the past 2 days. She reportedly fell at home and was noted to curled up earlier today. She was also noted to have swollen left lower extremity. In the ER, patient was noted to be in acute renal failure with a creatinine of 4 and a potassium of 7.3. She does take potassium supplements at home. She was also noted to have an extensive left lower extremity DVT. Family has already expressed that she closely follows up with Dr. Jordan and she has expressed that she does not want to be initiated on any dialysis if the need arises. Family also has discussed with patient earlier and she has already been made a DNR/DNI. On encounter, patient appears very comfortable and very cheerful. She is making jokes with this provider. She denies any acute complaint aside from her left leg pain. She denies any chest pain or shortness of breath. She is saturating well on room air. Hospital Course Hospital Course: 83 year old female with a PMH of dementia, HTN, CKD 4, NIDDM type 2, COPD not on home O2, history of DEMIAN and B12 deficiency, hypothyroidism and history of GI bleed from a diverticular bleed who was brought in due to left leg swelling. He was found to have an acute left lower extremity DVT and was also noted to be in acute renal failure with severe hyperkalemia. 05/29: She remains cheerful and comfortable this morning. She did complain of pain when left leg was moved. Left lower extremity still appears swollen but does not appear to be worse from yesterday. No discoloration. She denies chest pain or shortness of breath. 05/30: She denies acute complaints. Creatinine continue to improve and is down to 3.2 from 4.1 yesterday. No worsening or discoloration of the left leg. 05/31: Creatinine trending down to 3.0. She denies any acute complaints. She continues to be cheerful and comfortable. No bleeding from heparin drip. Will start Coumadin today. 06/02: She continues to do well and denies acute complaints. No worsening of left leg swelling. No discoloration. Increase coumadin to 3 mg daily. Continue Coumadin with bridging with heparin drip. She will be cleared for discharge to SNF/rehab once INR is therapeutic. 06/03: No acute event overnight. No acute issues. INR slightly up from 1.0 to 1.2. Increase Coumadin to 4 mg daily. Anticipating discharge to [facility] once her INR becomes therapeutic. 06/04/2019-no acute events in the last 24 hours. Patient is presently on Coumadin 4 mg p.o. daily and also on heparin drip. INR is 1.65. Plan is to continue the heparin drip until the INR is more than 2 4 to continue to suggest. pt is waiting for placement in [facility]. 06/05/2019-patient is comfortably in the bed not in distress. INR came back 2.01. Presently on a heparin drip and also on Coumadin 4 mg p.o. nightly plan is to discontinue heparin drip from today and to recheck PT/INR tomorrow. And plan to continue Coumadin 4 mg p.o. nightly. 06/06/2019-patient is comfortably in the bed not in distress. Presently on Coumadin 4 mg p.o. nightly INR came back as 3.16. Plan to hold the INR today. And to recheck tomorrow. Patient off the heparin drip. And is on Coumadin because of the DVT. 06/07/2019-patient is comfortably in the bed not communicative much. Not in distress. INR came back as 3.36. Coumadin is on hold from yesterday. Heparin drip was also on hold. Plan is to check PT/INR tomorrow if it is between 2-3 probably discharge her to senior care. 06/08/2019-is comfortable in the bed not in distress. Family members at bedside they happy with the care so far. PT/INR today is 3.2 plan is to continue to hold warfarin and recheck the PT/INR tomorrow. If the INR is between 2-3 probably will discharge her to senior care either tomorrow or Monday. -patient is comfortably in the bed not in distress. 06/11/2019-patient is comfortably in the bed not in distress. No acute events in the last 24 hours. Waiting for February from the insurance for senior care placement. INR is 3.9 Coumadin is going to be on hold. No signs of any bleed. Physical Exam Vital Signs: Temp Pulse Resp BP Pulse Ox 97.6 F 72 17 143/58 H 98 06/11/19 11:35 06/11/19 11:35 06/11/19 11:35 06/11/19 11:35 06/11/19 11:35 Intake & Output 06/10/19 06/11/19 06/12/19 06:59 06:59 06:59 Intake Total 420 480 Output Total 50 Balance 370 480 Weight 98.5 kg General appearance: PRESENT: no acute distress Head exam: PRESENT: atraumatic Eye exam: PRESENT: PERRLA Mouth exam: PRESENT: dry mucosa Teeth exam: PRESENT: poor dentation Neck exam: ABSENT: carotid bruit, JVD, lymphadenopathy, thyromegaly Respiratory exam: PRESENT: clear to auscultation mychal. ABSENT: rales, rhonchi, wheezes Cardiovascular exam: PRESENT: RRR. ABSENT: diastolic murmur, rubs, systolic murmur GI/Abdominal exam: PRESENT: normal bowel sounds, soft. ABSENT: distended, g uarding, mass, organolmegaly, rebound, tenderness Rectal exam: PRESENT: deferred Extremities exam: PRESENT: full ROM. ABSENT: calf tenderness, clubbing, pedal edema Neurological exam: PRESENT: alert, awake, oriented to person, oriented to place, oriented to time, oriented to situation, CN II-XII grossly intact. ABSENT: mo tor sensory deficit Psychiatric exam: PRESENT: appropriate affect, normal mood. ABSENT: homicidal ideation, suicidal ideation Results Laboratory Results: 06/10/19 05:19 06/10/19 05:19 05/28/19 05/28/19 05/28/19 14:02 14:02 16:00 Creatine Kinase Cancelled 636 H CK-MB (CK-2) 1.33 Troponin I 0.016 Impressions: Chest X-Ray 05/28/19 13:06 IMPRESSION: 1. Focal parenchymal consolidation suggested in the right lower lung zone. Head CT 05/28/19 13:06 IMPRESSION: CHRONIC CHANGES OF ATROPHY AND MICROVASCULAR ISCHEMIA. NO ACUTE PROCESS. EVIDENCE OF ACUTE STROKE: NO. Cervical Spine CT 05/28/19 13:07 IMPRESSION: Multilevel degenerate changes without evidence of acute bony abnormality of the cervical spine. Hip X-Ray 05/28/19 13:07 IMPRESSION: Decreased osseous mineralization without evidence of acute bony abnormality. Evidence of prior femoral neck gaining and left femur intramedullary hardware. Lower Extremity CT 05/28/19 14:51 IMPRESSION: 1. No fracture or dislocation of the left tibia or fibula. There is a partially imaged intramedullary nail fixation of the distal left femur. 2. Osteopenia. 3. Moderate tricompartmental arthrosis of the left knee. 4. Small nonspecific knee joint effusion. 5. Diffuse soft tissue swelling about the left lower leg. Knee X-Ray 05/29/19 00:00 IMPRESSION: Osteoarthritis Trace suprapatellar knee joint effusion No gross acute displaced fracture Transfer Plan - Time Spent with Patient Time spent with patient: Greater than 30 Minutes Qualifiers - * PATIENT BEING DISCHARGED WITH ANY OF THE FOLLOWING DIAGNOSIS: No VTE patient discharged on overlapping Therapy?: No Acute Heart Failure - Is this a Heart Failure Patient?: No
[2019-06-11 19:40] VITALS: BP 128/61
== END 2019-06-11 16:54 | DRG 300 ==
LOC: ER 12:34 → EH 17:06 → 4S 21:29
PROVIDERS: ADMIT Internal Medicine; ATTEND Internal Medicine
DX: I82.412 Acute embolism and thrombosis of left femoral vein (principal); N17.9 Acute kidney failure, unspecified; E87.2 Acidosis; N18.4 Chronic kidney disease, stage 4 (severe); M17.12 Unilateral primary osteoarthritis, left knee; Z88.1 Allergy status to other antibiotic agents; Z88.0 Allergy status to penicillin; Z88.5 Allergy status to narcotic agent; E78.5 Hyperlipidemia, unspecified; J44.9 Chronic obstructive pulmonary disease, unspecified; G40.909 Epilepsy, unspecified, not intractable, without status epilepticus; M19.90 Unspecified osteoarthritis, unspecified site; E11.22 Type 2 diabetes mellitus with diabetic chronic kidney disease; F03.90 Unspecified dementia, unspecified severity, without behavioral disturbance, psychotic disturbance, mood disturbance, and anxiety; D50.9 Iron deficiency anemia, unspecified; Z66 Do not resuscitate; E87.5 Hyperkalemia; E03.9 Hypothyroidism, unspecified; E53.8 Deficiency of other specified B group vitamins; D63.1 Anemia in chronic kidney disease; Z99.81 Dependence on supplemental oxygen; Z87.442 Personal history of urinary calculi; K21.9 Gastro-esophageal reflux disease without esophagitis; M81.0 Age-related osteoporosis without current pathological fracture; M25.462 Effusion, left knee; I12.9 Hypertensive chronic kidney disease with stage 1 through stage 4 chronic kidney disease, or unspecified chronic kidney disease
CPT/HCPCS: 36415; 70450; 71045; 72125; 80048; 80053; 81001; 82272; 82550; 82553; 82607; 82728; 82746; 82962; 83540; 83550; 83735; 84132; 84484; 85025; 85027; 85045; 85610; 85730; 87086; 93005; 93010; 93971; 96361; 96374; 99285; J0610; J1644; J1815; J2270; J2405; J3490; J7030; J7040; J7060

== ENCOUNTER 2019-06-21 08:20 | Emergency (ER) | payer MEDICARE ==
--- NOTE | 2019-06-21 09:01 | ER Document Report ---
ED General - General Chief Complaint: Leg Swelling Stated Complaint: LEFT LEG PAIN Time Seen by Provider: 06/21/19 08:44 Primary Care Provider: JEANE ELDER MD [Primary Care Provider] - Follow up as needed TRAVEL OUTSIDE OF THE [place] IN LAST 30 DAYS: No - HPI Notes: Patient is a very pleasantly confused 83-year-old female, sent in for evaluation from the senior living. Evidently the patient was seen recently, diagnosed with a DVT. She was started on Coumadin. She continues to have worsened swelling in the left lower extremity. The patient cannot really offer me any meaningful history. She states she has a blood clot. She states all of her swelling started last night. She is not ambulatory. She denies any pain. She denies any chest pain or difficulty breathing. She states she is on multiple medications, given to her by the senior living. - Related Data Allergies/Adverse Reactions: levofloxacin [From Levaquin] Allergy (Verified 05/28/19 12:35) Penicillins Allergy (Verified 05/28/19 12:34) Anaphylaxis tramadol Allergy (Verified 05/28/19 12:34) [facility] Home Medications: Atenolol, Lipitor, Rocaltrol, docusate, vitamin D2, Nexium, fenofibrate, Feosol, Xyzal, Synthroid, Lidoderm, losartan, Megesterol, nifedipine, Januvia, Coumadin Past Medical History - General Information source: Emergency Med Personnel, [facility] Records - Social History Smoking Status: Unknown if Ever Smoked Family History: Other - Unable to obtain secondary to dementia - Past Medical History Cardiac Medical History: Reports: Hx Hypercholesterolemia, Hx Hypertension Pulmonary Medical History: Reports: Hx COPD Neurological Medical History: Denies: Hx Seizures Endocrine Medical History: Reports: Hx Diabetes Mellitus Type 2, Hx Hypothyroidism Renal/ Medical History: Denies: Hx Peritoneal Dialysis GI Medical History: Reports: Hx Gastroesophageal Reflux Disease Musculoskeletal Medical History: Reports Hx Arthritis Psychiatric Medical History: Reports: Hx Dementia Past Surgical History: Reports: Hx Appendectomy, Hx Cholecystectomy, Hx Hyster ectomy, Hx Orthopedic Surgery - left femur, hip surgery left knee, Hx Tubal Ligation - Immunizations Hx Diphtheria, Pertussis, Tetanus Vaccination: Yes Hx Pneumococcal Vaccination: 11/13/05 Review of Systems - Review of Systems Constitutional: No symptoms reported EENT: No symptoms reported Physical Exam - Vital signs Vitals: Resp Pulse Ox 14 99 06/21/19 08:45 06/21/19 08:45 Course - Re-evaluation Re-evalutation: 06/21/19 12:04 Patient presents to the emergency department for evaluation. She was unable to offer me any real history, stated that all the swelling started today. Her daug hter did arrive later. Patient's daughter states that the swelling is been the significant recently. It is gone down significantly, but then over the last 3 days she has been in the wheelchair for several hours a day. Now the swelling is worsened again. She wanted to make sure her INR was still normal. Again the patient denies any chest pain or difficulty breathing. She has an extensive DVT. Discussed again with patient's daughter of the possibility of pulmonary embolus, she voiced understanding to this. Her INR is therapeutic. Her renal function continues to be poor, but it is not far off baseline. We will send the patient back to [facility] on her current medications. We will send her home with a small amount of pain medication. She is to follow-up with primary care, return to the ED with worsening or new concerning symptoms of any sort. - Vital Signs Vital signs: Temp Pulse Resp BP Pulse Ox 97.9 F 74 20 162/71 H 98 06/21/19 08:48 06/21/19 08:48 06/21/19 11:01 06/21/19 11:01 06/21/19 11:01 - Laboratory Result Diagrams: 06/21/19 08:38 06/21/19 08:38 Laboratory results interpreted by me: 06/21/19 06/21/19 06/21/19 08:38 08:38 08:38 RBC 3.68 L Hgb 9.9 L Hct 30.6 L MCH 26.9 L RDW 17.5 H Plt Count 460 H PT 28.8 H Chloride 112 H BUN 61 H Creatinine 2.61 H Est GFR ( Amer) 21 L Est GFR (Non-Af Amer) 18 L Glucose 138 H Direct Bilirubin 0.5 H Total Protein 6.2 L Albumin 3.1 L Discharge - Discharge Clinical Impression: Dvt femoral (deep venous thrombosis) Condition: Stable Disposition: HOME-SNF (ED ONLY) Instructions: DVT Outpatient Treatment ([facility]) Additional Instructions: Continue your home medications as prescribed. Start Percocet as needed for severe pain. Please watch for constipation with this medication. Follow-up with your doctor next week. Return to emergency department with worsening or new concerning symptoms of any sort. Referrals: JEANE ELDER MD [Primary Care Provider] - Follow up as needed
[2019-06-21 09:07] LABS: ABSOLUTE BASOPHILS # (AUTO) 0.1 10^3/uL (0.0-0.2); ABSOLUTE EOSINOPHILS # (AUTO) 0.3 10^3/uL (0.0-0.6); ABSOLUTE LYMPHOCYTES (AUTO) 3.1 10^3/uL (0.5-4.7); ABSOLUTE NEUT (AUTO) 5.3 10^3/uL (1.7-8.2); BASOPHILS % (AUTO) 0.5 % (0-2); EOSINOPHILS % (AUTO) 3.3 % (0-6); HEMATOCRIT 30.6 % (36.0-47.0); HEMOGLOBIN 9.9 g/dL (12.0-15.5); LYMPHOCYTES % (AUTO) 31.6 % (13-45); MEAN CORPUSCULAR HEMOGLOBIN 26.9 pg (27.0-33.4); MEAN CORPUSCULAR HGB CONC 32.3 g/dL (32.0-36.0); MEAN CORPUSCULAR VOLUME 83 fl (80-97); PLATELET COUNT 460 10^3/uL (150-450); RED BLOOD COUNT 3.68 10^6/uL (3.72-5.28); RED CELL DISTRIBUTION WIDTH 17.5 % (11.5-14.0); SEGMENTED NEUTROPHILS % (AUTO) 54.6 % (42-78); TOTAL CELLS COUNTED % (AUTO) 100 %; WHITE BLOOD COUNT 9.8 10^3/uL (4.0-10.5)
[2019-06-21 09:17] LABS: ALBUMIN 3.1 g/dL (3.5-5.0); ALKALINE PHOSPHATASE 82 U/L (38-126); ANION GAP 6 (5-19); ASPARTATE AMINO TRANSFERASE 28 U/L (14-36); BILIRUBIN,DIRECT 0.5 mg/dL (0.0-0.4); BILIRUBIN,TOTAL 0.5 mg/dL (0.2-1.3); BLOOD UREA NITROGEN 61 mg/dL (7-20); CALCIUM 8.7 mg/dL (8.4-10.2); CARBON DIOXIDE 23 mmol/L (22-30); CHLORIDE 112 mmol/L (98-107); GLUCOSE 138 mg/dL (75-110); POTASSIUM 4.8 mmol/L (3.6-5.0); TOTAL PROTEIN 6.2 g/dL (6.3-8.2)
[2019-06-21 09:37] LABS: INTERNATIONAL RATION (INR) 2.65; PROTHROMBIN TIME 28.8 SEC (11.4-15.4)
[2019-06-21] MEDS ORDERED: OXYCODONE-ACETAMINOPHEN 5-325 MG TABLET PO ONE (12:09)
[2019-06-21 15:05] VITALS: BP 190/76
== END 2019-06-21 15:00 ==
LOC: ER 08:20
DX: I82.419 Acute embolism and thrombosis of unspecified femoral vein (principal); F03.90 Unspecified dementia, unspecified severity, without behavioral disturbance, psychotic disturbance, mood disturbance, and anxiety; I10 Essential (primary) hypertension; J44.9 Chronic obstructive pulmonary disease, unspecified; E03.9 Hypothyroidism, unspecified; E78.00 Pure hypercholesterolemia, unspecified; K21.9 Gastro-esophageal reflux disease without esophagitis; E11.9 Type 2 diabetes mellitus without complications; Z79.84 Long term (current) use of oral hypoglycemic drugs; Z79.899 Other long term (current) drug therapy; Z88.1 Allergy status to other antibiotic agents; Z88.0 Allergy status to penicillin; Z88.5 Allergy status to narcotic agent
CPT/HCPCS: 99283; 36415; 85025; 85610; 80053; A9270

== ENCOUNTER 2019-06-22 13:20 | Emergency (ER) | payer MEDICARE ==
[2019-06-22] MEDS ORDERED: ONDANSETRON HCL INJ/PF 4 MG/2 ML SDV IV ONE (13:42)
[2019-06-22] MEDS ORDERED: MORPHINE SULFATE 10 MG/ML INJ IV ONE (13:43)
--- NOTE | 2019-06-22 13:49 | ER Document Report ---
ED Medical Screen (RME) - General Chief Complaint: Arm Pain Stated Complaint: LEG BRUISING Primary Care Provider: JEANE ELDER MD [Primary Care Provider] - Follow up as needed TRAVEL OUTSIDE OF THE [place] IN LAST 30 DAYS: No - HPI Notes: 06/22/19 13:44 Patient is a very pleasant 83-year-old female, with a history of dementia, DVT of the left lower extremity, sent into the emergency department for evaluation from [facility]. I actually the pleasure of seeing this patient yesterday. She is currently on Coumadin for this newly diagnosed DVT. The DVT is extensive, involves nearly every vein in her left lower extremity. Patient's other daughter came to visit her today. The patient could not tell her anything meaningful about the last evening, but it was noted that she was complaining of pain in the left side of her chest and shoulder. Patient's daughter evaluated the area and found extensive ecchymotic region. Patient cannot offer any history as to how this may have happened. Patient's daughter also notes that she complained of a headache all night last evening, no treatment offered beyond Tylenol. 06/22/19 13:48 - Related Data Frequency of alcohol use: None Drug Abuse: None Allergies/Adverse Reactions: levofloxacin [From Levaquin] Allergy (Verified 05/28/19 12:35) Penicillins Allergy (Verified 05/28/19 12:34) Anaphylaxis tramadol Allergy (Verified 05/28/19 12:34) [facility] Home Medications: Atenolol, Lipitor, Rocaltrol, docusate, vitamin D2, Nexium, fenofibrate, Feosol, Xyzal, Synthroid, Lidoderm, losartan, megesterol, nifedipine, Januvia, Coumadin Past Medical History - General Information source: Relative, [facility] Records - Past Medical History Cardiac Medical History: Reports: Hx DVT, Hx Hypercholesterolemia, Hx Hypertension Pulmonary Medical History: Reports: Hx COPD Neurological Medical History: Denies: Hx Seizures Endocrine Medical History: Reports: Hx Diabetes Mellitus Type 2, Hx Hypothyroidism Renal/ Medical History: Denies: Hx Peritoneal Dialysis GI Medical History: Reports: Hx Gastroesophageal Reflux Disease Musculoskeltal Medical History: Reports Hx Arthritis Psychiatric Medical History: Reports: Hx Dementia Past Surgical History: Reports: Hx Appendectomy, Hx Cholecystectomy, Hx Hysterectomy, Hx Orthopedic Surgery - left femur, hip surgery left knee, Hx Tubal Ligation - Immunizations Hx Diphtheria, Pertussis, Tetanus Vaccination: Yes History of Influenza Vaccine for 08/2017 - 01/2018 Season: No Physical Exam - Vital signs Vitals: Temp Pulse Resp BP Pulse Ox 98.5 F 73 20 120/56 L 98 06/22/19 13:25 06/22/19 13:25 06/22/19 13:25 06/22/19 13:25 06/22/19 13:25 - Notes Notes: Cursory physical exam performed. No obvious hematomas noted to the head. No significant cervical spine tenderness. Pupils are equal and round. Patient has extensive ecchymosis in the left axilla, tracking down the left lateral chest wall, and into the left upper extremity. Vascularly intact to the left arm. Course - Re-evaluation Re-evalutation: 06/22/19 13:49 I have greeted and performed a rapid initial assessment of this patient. A comprehensive ED assessment and evaluation of the patient, analysis of test results and completion of medical decision making process will be conducted by an additional ED providers. - Vital Signs Vital signs: Temp Pulse Resp BP Pulse Ox 98.5 F 73 20 120/56 L 98 06/22/19 13:25 06/22/19 13:25 06/22/19 13:25 06/22/19 13:25 06/22/19 13:25 Doctor's Discharge - Discharge Referrals: JEANE ELDER MD [Primary Care Provider] - Follow up as needed
[2019-06-22 14:36] LABS: ABSOLUTE BASOPHILS # (AUTO) 0.1 10^3/uL (0.0-0.2); ABSOLUTE EOSINOPHILS # (AUTO) 0.1 10^3/uL (0.0-0.6); ABSOLUTE LYMPHOCYTES (AUTO) 2.6 10^3/uL (0.5-4.7); ABSOLUTE NEUT (AUTO) 7.6 10^3/uL (1.7-8.2); BASOPHILS % (AUTO) 0.5 % (0-2); EOSINOPHILS % (AUTO) 0.6 % (0-6); HEMOGLOBIN 8.1 g/dL (12.0-15.5); LYMPHOCYTES % (AUTO) 23.2 % (13-45); MEAN CORPUSCULAR HEMOGLOBIN 26.8 pg (27.0-33.4); MEAN CORPUSCULAR HGB CONC 32.5 g/dL (32.0-36.0); MEAN CORPUSCULAR VOLUME 83 fl (80-97); MONOCYTES % (AUTO) 8.9 % (3-13); PLATELET COUNT 406 10^3/uL (150-450); RED BLOOD COUNT 3.03 10^6/uL (3.72-5.28); RED CELL DISTRIBUTION WIDTH 17.7 % (11.5-14.0); SEGMENTED NEUTROPHILS % (AUTO) 66.8 % (42-78); TOTAL CELLS COUNTED % (AUTO) 100 %; WHITE BLOOD COUNT 11.3 10^3/uL (4.0-10.5)
[2019-06-22 14:41] LABS: PROTHROMBIN TIME 43.2 SEC (11.4-15.4)
--- NOTE | 2019-06-22 14:45 | RADIOLOGY REPORT (SQ) ---
EXAM DESCRIPTION: CT CERVICAL SPINE WITHOUT COMPLETED DATE/TIME: 06/22/2019 2:37 pm REASON FOR STUDY: dementia, injury, possible fall COMPARISON: 05/28/2019 TECHNIQUE: Axial images acquired through the cervical spine without intravenous contrast. Images re viewed with lung, soft tissue and bone windows. Reconstructed coronal and sagittal MPR images review ed. Images stored on PACS. All CT scanners at this facility use dose modulation, iterative reconstruction, and/or weight based d osing when appropriate to reduce radiation dose to as low as reasonably achievable (ALARA). [facility]: Dose Right [facility]: CareDose [facility]: Dose Right [facility]: Teradose 4D [facility]: Smart nap- [employer] RADIATION DOSE: CT Rad equipment meets quality standard of care and radiation dose reduction techniq ues were employed. CTDIvol: 19.7 mGy. DLP: 448 mGy-cm. mGy. LIMITATIONS: None. FINDINGS: ALIGNMENT: Anatomic. MINERALIZATION: Normal. VERTEBRAL BODIES: No fractures or dislocation. DISCS: Moderate multilevel disc degenerative disease and osteophytosis. FACETS, LATERAL MASSES, POSTERIOR ELEMENTS: No fractures. No dislocation. No acute findings. HARDWARE: None in the spine. VISUALIZED RIBS: No fractures. LUNG APICES AND SOFT TISSUES: No significant or acute findings. OTHER: No other significant finding. IMPRESSION: No fracture or static subluxation of the cervical spine. TECHNICAL DOCUMENTATION: JOB ID: [id number] Quality ID # 436: Final reports with documentation of one or more dose reduction techniques (e.g., Au tomated exposure control, adjustment of the mA and/or kV according to patient size, use of iterative reconstruction technique) 2010 [employer]- All Rights Reserved Reading location - IP/workstation name: [email or web address]
--- NOTE | 2019-06-22 14:47 | RADIOLOGY REPORT (SQ) ---
EXAM DESCRIPTION: CT HEAD WITHOUT COMPLETED DATE/TIME: 06/22/2019 2:38 pm REASON FOR STUDY: dementia, injury, possible fall COMPARISON: 05/28/2019 TECHNIQUE: Axial images acquired through the brain without intravenous contrast. Images reviewed wi th bone, brain and subdural windows. Additional sagittal and coronal reconstructions were generated. Images stored on PACS. All CT scanners at this facility use dose modulation, iterative reconstruction, and/or weight based d osing when appropriate to reduce radiation dose to as low as reasonably achievable (ALARA). [facility]: Dose Right [facility]: CareDose [facility]: Dose Right [facility]: Teradose 4D [facility]: Smart JIT [employer] RADIATION DOSE: CT Rad equipment meets quality standard of care and radiation dose reduction techniq ues were employed. CTDIvol: 53.2 mGy. DLP: 1017 mGy-cm. mGy. LIMITATIONS: None. FINDINGS: VENTRICLES: Normal size and contour. CEREBRUM: No masses. No hemorrhage. No midline shift. No evidence for acute infarction. Normal gra y/white matter differentiation. No areas of low density in the white matter. CEREBELLUM: No masses. No hemorrhage. No alteration of density. No evidence for acute infarction. EXTRAAXIAL SPACES: No fluid collections. No masses. ORBITS AND GLOBE: No intra- or extraconal masses. Normal contour of globe without masses. CALVARIUM: No fracture. PARANASAL SINUSES: No fluid or mucosal thickening. SOFT TISSUES: No mass or hematoma. OTHER: No other significant finding. IMPRESSION: No acute intracranial pathology. EVIDENCE OF ACUTE STROKE: NO. COMMENT: Quality ID # 436: Final reports with documentation of one or more dose reduction techniques (e.g., Automated exposure control, adjustment of the mA and/or kV according to patient size, use of iterative reconstruction technique) TECHNICAL DOCUMENTATION: JOB ID: [id number] [employer]- All Rights Reserved Reading location - IP/workstation name: [email or web address]
[2019-06-22 14:49] LABS: ALBUMIN 2.7 g/dL (3.5-5.0); ALKALINE PHOSPHATASE 60 U/L (38-126); ANION GAP 6 (5-19); ASPARTATE AMINO TRANSFERASE 20 U/L (14-36); BILIRUBIN,DIRECT 0.4 mg/dL (0.0-0.4); BILIRUBIN,TOTAL 0.4 mg/dL (0.2-1.3); BLOOD UREA NITROGEN 58 mg/dL (7-20); CALCIUM 8.4 mg/dL (8.4-10.2); CARBON DIOXIDE 20 mmol/L (22-30); CHLORIDE 111 mmol/L (98-107); GLUCOSE 200 mg/dL (75-110); POTASSIUM 5.3 mmol/L (3.6-5.0); TOTAL PROTEIN 5.1 g/dL (6.3-8.2)
--- NOTE | 2019-06-22 14:52 | RADIOLOGY REPORT (SQ) ---
EXAM DESCRIPTION: CT CHEST WITHOUT COMPLETED DATE/TIME: 06/22/2019 2:37 pm REASON FOR STUDY: dementia, injury, possible fall COMPARISON: Same day chest radiograph TECHNIQUE: CT scan performed of the chest without intravenous contrast. Images reviewed with lung, soft tissue and bone windows. Reconstructed coronal and sagittal MPR images reviewed. All images st ored on PACS. All CT scanners at this facility use dose modulation, iterative reconstruction, and/or weight based d osing when appropriate to reduce radiation dose to as low as reasonably achievable (ALARA). [facility]: Dose Right [facility]: CareDose [facility]: Dose Right [facility]: Teradose 4D [facility]: Smart [employer] RADIATION DOSE: CT Rad equipment meets quality standard of care and radiation dose reduction techniq ues were employed. CTDIvol: 14.4 mGy. DLP: 475 mGy-cm. mGy. LIMITATIONS: No technical limitations. FINDINGS: LUNGS AND PLEURA: No masses, infiltrates, or pneumothorax. No pleural effusions or pleura l calcifications. HILAR AND MEDIASTINAL STRUCTURES: No identified masses or abnormal nodes. No obvious aneurysm. HEART AND VASCULAR STRUCTURES: No aneurysm. No pericardial effusion. Three-vessel coronary artery c alcifications. UPPER ABDOMEN: No significant findings. Limited exam. THYROID AND OTHER SOFT TISSUES: No masses. No adenopathy. BONES: No significant finding. HARDWARE: None in the chest. OTHER: There is a large masslike left subpectoral and axillary lesion measuring at least 10.3 x 7.1 x 6.1 cm (series 4, image 23, series 601, image 29). There is a probable subcutaneous inclusion cyst overlying the sternum. IMPRESSION: 1. There is a large masslike left subpectoral and axillary lesion measuring at least 10. 3 x 7.1 x 6.1 cm (series 4, image 23, series 601, image 29), likely hematoma in the setting of trauma . Solid mass is not excluded. 2. No noncontrast evidence of acute traumatic injury to the organs of the chest. No pneumothorax or pleural effusion. No displaced fracture. TECHNICAL DOCUMENTATION: JOB ID: [id number] Quality ID # 436: Final reports with documentation of one or more dose reduction techniques (e.g., Au tomated exposure control, adjustment of the mA and/or kV according to patient size, use of iterative reconstruction technique) 2010 [employer]- All Rights Reserved Reading location - IP/workstation name: [email or web address]
--- NOTE | 2019-06-22 15:17 | RADIOLOGY REPORT (SQ) ---
EXAM DESCRIPTION: SHOULDER LEFT 2 OR MORE VIEWS; HUMERUS LEFT COMPLETED DATE/TIME: 06/22/2019 2:51 pm REASON FOR STUDY: ecchymosis; ecchymosis, possible injury COMPARISON: None. NUMBER OF VIEWS: Three views of the left shoulder, two views of the left humerus TECHNIQUE: Internal rotation, external rotation, and Y view images acquired of the left shoulder. LIMITATIONS: None. FINDINGS: MINERALIZATION: Normal. BONES: No acute fracture. No worrisome bone lesions. JOINTS: No dislocation. VISUALIZED LUNGS AND RIBS: No pneumothorax. No rib fracture. SOFT TISSUES: No radiopaque foreign body. Soft tissue edema about the left axilla and chest wall. OTHER: No other significant finding. IMPRESSION: No fracture or dislocation of the left shoulder or left humerus. Soft tissue edema abou t the left axilla and chest wall. TECHNICAL DOCUMENTATION: JOB ID: [id number] [employer]- All Rights Reserved Reading location - IP/workstation name: [email or web address]
--- NOTE | 2019-06-22 15:18 | RADIOLOGY REPORT (SQ) ---
EXAM DESCRIPTION: SHOULDER LEFT 2 OR MORE VIEWS; HUMERUS LEFT COMPLETED DATE/TIME: 06/22/2019 2:51 pm REASON FOR STUDY: ecchymosis; ecchymosis, possible injury COMPARISON: None. NUMBER OF VIEWS: Three views of the left shoulder, two views of the left humerus TECHNIQUE: Internal rotation, external rotation, and Y view images acquired of the left shoulder. LIMITATIONS: None. FINDINGS: MINERALIZATION: Normal. BONES: No acute fracture. No worrisome bone lesions. JOINTS: No dislocation. VISUALIZED LUNGS AND RIBS: No pneumothorax. No rib fracture. SOFT TISSUES: No radiopaque foreign body. Soft tissue edema about the left axilla and chest wall. OTHER: No other significant finding. IMPRESSION: No fracture or dislocation of the left shoulder or left humerus. Soft tissue edema abou t the left axilla and chest wall. TECHNICAL DOCUMENTATION: JOB ID: [id number] [employer]- All Rights Reserved Reading location - IP/workstation name: [email or web address]
--- NOTE | 2019-06-22 16:01 | ER Document Report ---
Entered by XAVIER LOUIE SCRIBE 06/22/19 1519 Acting as scribe for:MARCELA DAVILA MD ED Extremity Problem, Upper - General Chief Complaint: Arm Pain Stated Complaint: LEG BRUISING Time Seen by Provider: 06/22/19 15:03 Primary Care Provider: JEANE ELDER MD [NO LOCAL MD] - 06/23/19 (Call tomorrow to coordinate repeat INR and when to resume Coumadin.) Mode of Arrival: Wheelchair Information source: Patient, Relative Notes: 83-year-old female that presents to the emergency department today with complaints of a large tender swollen area to her left upper chest wall and axilla area. Patient does reside in a fdc but she reports no falls or trauma to the area. Patient had a fall several weeks ago where she hurt her knee. She was admitted here where she developed a DVT. Patient is now on Coumadin for this. TRAVEL OUTSIDE OF THE [place] IN LAST 30 DAYS: No - Related Data Allergies/Adverse Reactions: levofloxacin [From Levaquin] Allergy (Verified 06/22/19 15:12) Penicillins Allergy (Verified 06/22/19 15:12) Anaphylaxis tramadol Allergy (Verified 06/22/19 15:12) Hives Home Medications: Atenolol, Lipitor, Rocaltrol, docusate, vitamin D2, Nexium, fenofibrate, Feosol, Xyzal, Synthroid, Lidoderm, losartan, megesterol, nife dipine, Januvia, Coumadin Past Medical History - General Information source: Relative, [facility] Records - Social History Smoking Status: Unknown if Ever Smoked Cigarette use (# per day): No Frequency of alcohol use: None Drug Abuse: None Family History: Other - Unable to obtain secondary to dementia Patient has suicidal ideation: No Patient has homicidal ideation: No - Past Medical History Cardiac Medical History: Reports: Hx DVT, Hx Hypercholesterolemia, Hx Hypertension Pulmonary Medical History: Reports: Hx COPD Endocrine Medical History: Reports: Hx Diabetes Mellitus Type 2, Hx Hypothyroidism GI Medical History: Reports: Hx Gastroesophageal Reflux Disease Musculoskeletal Medical History: Reports Hx Arthritis Psychiatric Medical History: Reports: Hx Dementia Past Surgical History: Reports: Hx Appendectomy, Hx Cholecystectomy, Hx Hysterectomy, Hx Orthopedic Surgery - left femur, hip surgery left knee, Hx Tubal Ligation - Immunizations Hx Diphtheria, Pertussis, Tetanus Vaccination: Yes Hx Pneumococcal Vaccination: 11/13/05 Review of Systems - Review of Systems Constitutional: No symptoms reported EENT: No symptoms reported Cardiovascular: No symptoms reported Respiratory: No symptoms reported Gastrointestinal: No symptoms reported Genitourinary: No symptoms reported Female Genitourinary: No symptoms reported Musculoskeletal: See HPI, Other - left chest wall pain Skin: No symptoms reported Hematologic/Lymphatic: No symptoms reported Neurological/Psychological: No symptoms reported -: Yes All other systems reviewed and negative Physical Exam - Vital signs Vitals: Temp Pulse Resp BP Pulse Ox 98.5 F 73 20 120/56 L 98 06/22/19 13:25 06/22/19 13:25 06/22/19 13:25 06/22/19 13:25 06/22/19 13:25 - Notes Notes: Physical Exam: General: Alert, appears well. HEENT: Normocephalic. Atraumatic. PERRL. Extraocular movements intact. Oropharynx clear. Neck: Supple. Non-tender. Respiratory: No respiratory distress. Clear and equal breath sounds bilaterally. Cardiovascular: Regular rate and rhythm. Abdominal: Normal Inspection. Non-tender. No distension. Normal Bowel Sounds. Back: Non-tender. No deformity or step off. Extremities: Moves all four extremities. Upper extremities: Normal inspection. Normal ROM. Left shoulder and humerus are non-tender. Lower extremities: 3-4+ pitting edema to left lower extremity. trace edema to right lower extremity. Neurological: Mildly demented. AAOx4. Normal speech. Psychological: Normal affect. Normal Mood. Skin: Large hematoma over left lateral chest wall, this area is swollen, tenderness with palpation from left axilla down to abdomen region. Course - Re-evaluation Re-evalutation: 06/22/19 18:55 The patient was seen yesterday for pain and swelling to her left lower extremity, felt to be due to spending too much time in a wheelchair with the extensive left leg DVT. Discharge instructions told her to start taking the Percocet as prescribed, however no Percocet prescription was written. We will provide the patient with pain medication for the next 2 days and she should follow-up with her primary care doctor. - Vital Signs Vital signs: Temp Pulse Resp BP Pulse Ox 98.5 F 73 18 120/57 L 98 06/22/19 13:25 06/22/19 13:25 06/22/19 18:00 06/22/19 18:01 06/22/19 18:00 - Laboratory Result Diagrams: 06/22/19 13:59 06/22/19 13:59 Laboratory results interpreted by me: 06/22/19 06/22/19 06/22/19 13:59 13:59 13:59 WBC 11.3 H RBC 3.03 L Hgb 8.1 L Hct 25.0 L MCH 26.8 L RDW 17.7 H PT 43.2 H Potassium 5.3 H Chloride 111 H Carbon Dioxide 20 L BUN 58 H Creatinine 2.62 H Est GFR ( Amer) 21 L Est GFR (Non-Af Amer) 18 L Glucose 200 H Total Protein 5.1 L Albumin 2.7 L Urine Protein Urine Blood Urine Nitrite Ur Leukocyte Esterase 06/22/19 16:17 WBC RBC Hgb Hct MCH RDW PT Potassium Chloride Carbon Dioxide BUN Creatinine Est GFR ( Amer) Est GFR (Non-Af Amer) Glucose Total Protein Albumin Urine Protein >=500 H Urine Blood SMALL H Urine Nitrite POSITIVE H Ur Leukocyte Esterase MODERATE H - Diagnostic Test Radiology reviewed: Image reviewed, Reports reviewed - CT scans of the head and cervical spine are unremarkable. Noncontrasted CT scan of the chest shows a six 7 x 10 cm hematoma in the left anterolateral chest wall. X-rays of the left shoulder and humerus do not show fracture. 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 This is due to germs growing in the bladder. This is a common problem. This infection usually responds quickly to antibiotics. Your antibiotic should be taken exactly as prescribed. Drink plenty of fluids -- three to four quarts a day. Certain urine infections require a culture. If the doctor obtained a culture, the results will be back in two days. You should call to see if a change in treatment is needed. A repeat urinalysis after you finish treatment is often recommended. The physician will let you know if further testing is required. Call the doctor if you develop fever, chills, flank pain, inability to urinate, or blood in the urine. You have a urinary tract infection. Have a large hematoma in your left lateral chest wall. Your bleeding time is markedly elevated. For now you should hold your Coumadin dosing for today and tomorrow. Start taking the Macrodantin as prescribed for urinary tract infection. Take the Percocet as prescribed for your chest wall discomfort if needed. Contact your primary care provider tomorrow to schedule repeat INR on Monday and decide when to start back on your Coumadin, and for any further pain management if needed. Your primary care provider can also check with the lab on Monday to see the urine culture results. RETURN TO THE EMERGENCY ROOM IF ANY NEW OR WORSENING SYMPTOMS. Prescriptions: Nitrofurantoin Macrocrystal [Macrodantin] 100 mg PO QID #28 capsule Oxycodone HCl/Acetaminophen [Percocet 5-325 mg Tablet] 1 tab PO ASDIR PRN #10 tablet PRN Reason: Referrals: JEANE ELDER MD [NO LOCAL MD] - 06/23/19 (Call tomorrow to coordinate repeat INR and when to resume Coumadin.) Scribe Attestation: 06/22/19 15:24 I personally performed the services described in the documentation, reviewed and edited the documentation which was dictated to the scribe in my presence, and it accurately records my words and actions. I personally performed the services described in the documentation, reviewed and edited the documentation which was dictated to the scribe in my presence, and it accurately records my words and actions.
[2019-06-22 16:48] LABS: APPEARANCE,URINE TURBID; BILIRUBIN,URINE NEGATIVE (NEGATIVE); COLOR,URINE AMBER; GLUCOSE, URINE NEGATIVE (NEGATIVE); KETONES,URINE NEGATIVE (NEGATIVE); LEUKOCYTE ESTERASE,URINE MODERATE (NEGATIVE); NITRITE,URINE POSITIVE (NEGATIVE); PROTEIN,URINE >=500 mg/dL (NEGATIVE); URINE SPECIFIC GRAVITY 1.017; UROBILINOGEN,URINE NEGATIVE mg/dL (<2.0)
[2019-06-22] MEDS ORDERED: NITROFURANTOIN MONOHYD/M-CRYST 100 MG CAPSULE PO ONE (17:33)
[2019-06-22 20:01] VITALS: BP 134/56
== END 2019-06-22 20:02 ==
LOC: ER 13:20
DX: S20.212A Contusion of left front wall of thorax, initial encounter (principal); W19.XXXA Unspecified fall, initial encounter; I82.502 Chronic embolism and thrombosis of unspecified deep veins of left lower extremity; R79.89 Other specified abnormal findings of blood chemistry; N39.0 Urinary tract infection, site not specified; I12.0 Hypertensive chronic kidney disease with stage 5 chronic kidney disease or end stage renal disease; N18.5 Chronic kidney disease, stage 5; E78.00 Pure hypercholesterolemia, unspecified; F03.90 Unspecified dementia, unspecified severity, without behavioral disturbance, psychotic disturbance, mood disturbance, and anxiety; I10 Essential (primary) hypertension; J44.9 Chronic obstructive pulmonary disease, unspecified; E11.9 Type 2 diabetes mellitus without complications; E03.9 Hypothyroidism, unspecified; Z79.02 Long term (current) use of antithrombotics/antiplatelets; Z90.49 Acquired absence of other specified parts of digestive tract; Z90.710 Acquired absence of both cervix and uterus; Z88.6 Allergy status to analgesic agent; Z88.0 Allergy status to penicillin
CPT/HCPCS: 99285; 96374; 96375; 36415; 87086; 85025; 85610; 87088; 80053; 81001; 87186; 73060; 73030; 70450; 71250; 72125; J2270; J2405; A9270; J8499